=== PATIENT | female | born 1955 | race Caucasian/White ===

== ENCOUNTER 2019-04-06 12:21 | Outpatient (CLI) | payer MEDICARE, OTHER, SELFPAY ==
--- NOTE | ~2019-04-06 | XR_ITS ---
EXAMINATION: XR chest 2V DATE: 04/06/2019 12:41 INDICATION: Cough. TECHNIQUE: Frontal and lateral views of the chest were obtained. COMPARISON: None. FINDINGS: The chest demonstrates clear lungs without pneumonia, pleural effusion, or pneumothorax. Th e heart size is normal. IMPRESSION: 1. No acute cardiopulmonary disease. Reviewed, dictated and finalized at location A. 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
[2019-04-06 13:32] LABS: Blood Urea Nitrogen 22 mg/dL (7-17); Calcium 9.4 mg/dL (8.4-10.2); Carbon Dioxide 30 mmol/L (22-30); Chloride 102 mmol/L (98-107); Estimated Glomerular Filt Rate > 60; Glucose 90 mg/dL (65-105); Potassium 3.9 mmol/L (3.4-5.0); Sodium 142 mmol/L (137-145)
== END 2019-04-06 12:22 | disposition home or self-care (01) ==
PROVIDERS: PCP Internal Medicine; Visit Provider Nurse Practitioner
DX: R05 Cough (principal); I10 Essential (primary) hypertension; I25.10 Atherosclerotic heart disease of native coronary artery without angina pectoris
CPT/HCPCS: 36415; 71046; 80048

== ENCOUNTER 2019-07-11 09:58 | Outpatient (CLI) | payer MEDICARE, OTHER, SELFPAY ==
[2019-07-11 10:34] LABS: Blood Urea Nitrogen 14 mg/dL (7-17); Calcium 9.4 mg/dL (8.4-10.2); Carbon Dioxide 31 mmol/L (22-30); Chloride 105 mmol/L (98-107); Estimated Glomerular Filt Rate > 60; Glucose 97 mg/dL (65-105); Potassium 4.5 mmol/L (3.4-5.0); Sodium 138 mmol/L (137-145)
[2019-07-11 10:43] LABS: NT Pro B Type Natriuretic Pept 93 PG/ML (5-100)
== END 2019-07-11 09:59 | disposition home or self-care (01) ==
PROVIDERS: PCP Internal Medicine
DX: I25.118 Atherosclerotic heart disease of native coronary artery with other forms of angina pectoris (principal); R06.02 Shortness of breath; R60.9 Edema, unspecified
CPT/HCPCS: 36415; 80048; 83880

== ENCOUNTER 2019-07-20 08:12 | Outpatient (CLI) | payer MEDICARE, OTHER, SELFPAY ==
[2019-07-20 08:53] LABS: Blood Urea Nitrogen 18 mg/dL (7-17); Calcium 9.1 mg/dL (8.4-10.2); Carbon Dioxide 28 mmol/L (22-30); Chloride 105 mmol/L (98-107); Estimated Glomerular Filt Rate > 60; Glucose 96 mg/dL (65-105); Potassium 3.6 mmol/L (3.4-5.0); Sodium 139 mmol/L (137-145)
== END 2019-07-20 08:13 | disposition home or self-care (01) ==
PROVIDERS: PCP Internal Medicine
DX: I10 Essential (primary) hypertension (principal)
CPT/HCPCS: 36415; 80048

== ENCOUNTER 2019-11-02 07:26 | Outpatient (CLI) | payer MEDICARE, OTHER, SELFPAY ==
[2019-11-02 07:56] LABS: Anion Gap 6 mmol/L (8-16); Blood Urea Nitrogen 15 mg/dL (7-17); Carbon Dioxide 27 mmol/L (22-30); Chloride 104 mmol/L (98-107); Estimated Glomerular Filt Rate > 60; Glucose 97 mg/dL (65-105); Potassium 3.9 mmol/L (3.4-5.0); Sodium 137 mmol/L (137-145)
== END 2019-11-02 07:27 | disposition home or self-care (01) ==
LOC: ANHLAB 07:29
PROVIDERS: PCP Internal Medicine; Visit Provider Internal Medicine Interventional Cardiology
DX: I10 Essential (primary) hypertension (principal)
CPT/HCPCS: 36415; 80048

== ENCOUNTER 2019-11-19 07:30 | Outpatient (RCR) | payer MEDICARE, OTHER, SELFPAY ==
[2019-08-21 14:29] VITALS: BP 136/76; PULSE 62; RESP 16; TEMP 37.2; O2SAT 97
[2019-08-22 10:21] VITALS: PULSE 62
--- NOTE | 2019-09-10 09:22 | PCCPR ---
Absent-sneezing & has a runny nose. Did not feel comfortable coming and being around other patients with the symptoms she is having.
== END 2019-11-19 23:59 | disposition home or self-care (01) ==
LOC: ANHCPREHAB 07:30
PROVIDERS: PCP Internal Medicine; Visit Provider Internal Medicine Interventional Cardiology
DX: Z95.5 Presence of coronary angioplasty implant and graft (principal)
CPT/HCPCS: 93798

== ENCOUNTER 2019-11-22 07:30 | Outpatient (RCR) | payer MEDICARE, OTHER, SELFPAY ==
[2019-11-20 00:03] VITALS: BP 136/76; PULSE 62; RESP 16; TEMP 37.2; O2SAT 97
== END 2019-11-22 18:41 | disposition home or self-care (01) ==
LOC: ANHCPREHAB 07:30
PROVIDERS: PCP Internal Medicine; Visit Provider Internal Medicine Interventional Cardiology
DX: Z95.5 Presence of coronary angioplasty implant and graft (principal)
CPT/HCPCS: 93798

== ENCOUNTER 2020-02-20 07:07 | Outpatient (CLI) | payer MEDICARE, OTHER, SELFPAY ==
[2020-02-20 08:01] LABS: Hematocrit 43.4 % (37.0-47.0); Hemoglobin 15.4 g/dL (12.0-15.0); Mean Corpuscular HGB Conc 35.5 g/dl (32-36); Mean Corpuscular Hemoglobin 32.4 pg (26-34); Mean Corpuscular Volume 91.2 fl (80-100); Mean Platelet Volume 10.2 fl (7.4-10.4); Platelet Count Result 272 k/mm3 (150-375); Red Blood Count 4.76 M/mm3 (4.2-5.4); Red Cell Distribution Width 13.8 % (11.5-14.5); White Blood Count 7.4 K/mm3 (4.5-10.0)
[2020-02-20 08:22] LABS: Alanine Aminotransferase 33 U/L (4-35); Albumin Level 4.2 g/dL (3.5-5.1); Alkaline Phosphatase 82 U/L (38-126); Anion Gap 5 mmol/L (8-16); Aspartate Amino Transferase 30 U/L (14-36); Bilirubin,Total 0.5 mg/dL (0.2-1.3); Blood Urea Nitrogen 21 mg/dL (7-17); Calcium 9.1 mg/dL (8.4-10.2); Carbon Dioxide 31 mmol/L (22-30); Chloride 104 mmol/L (98-107); Estimated Glomerular Filt Rate > 60; Glucose 101 mg/dL (65-105); Potassium 4.6 mmol/L (3.4-5.0); Sodium 140 mmol/L (137-145)
[2020-02-20 08:27] LABS: Hemoglobin A1C 5.6 % (<5.7)
[2020-02-20 09:15] LABS: Vitamin D 25 Hydroxy 21.8 ng/mL
[2020-02-20 09:26] LABS: Folic Acid 7.9 ng/mL (2.76->20)
== END 2020-02-20 07:08 | disposition home or self-care (01) ==
LOC: ANHLAB 07:21
PROVIDERS: PCP Internal Medicine
DX: E66.9 Obesity, unspecified (principal); E63.9 Nutritional deficiency, unspecified; Z83.3 Family history of diabetes mellitus; Z68.35 Body mass index [BMI] 35.0-35.9, adult; E88.9 Metabolic disorder, unspecified; R79.9 Abnormal finding of blood chemistry, unspecified
CPT/HCPCS: 36415; 80053; 82306; 82607; 82728; 82746; 83036; 84443; 85027

== ENCOUNTER 2020-03-18 06:50 | Outpatient (CLI) | payer MEDICARE, OTHER, SELFPAY ==
[2020-03-18 08:03] LABS: Anion Gap 4 mmol/L (8-16); Blood Urea Nitrogen 15 mg/dL (7-17); Calcium 9.4 mg/dL (8.4-10.2); Carbon Dioxide 32 mmol/L (22-30); Chloride 105 mmol/L (98-107); Estimated Glomerular Filt Rate > 60; Glucose 98 mg/dL (65-105); Potassium 4.1 mmol/L (3.4-5.0); Sodium 141 mmol/L (137-145)
[2020-03-21 05:08] LABS: Insulin Level Total 16.4 uIU/mL (<=19.6)
== END 2020-03-18 06:51 | disposition home or self-care (01) ==
PROVIDERS: PCP Internal Medicine
DX: E88.9 Metabolic disorder, unspecified (principal); E63.9 Nutritional deficiency, unspecified; R73.9 Hyperglycemia, unspecified; Z83.3 Family history of diabetes mellitus
CPT/HCPCS: 36415; 80048; 83525

== ENCOUNTER 2020-07-10 15:48 | Outpatient (CLI) | payer MEDICARE, OTHER, SELFPAY ==
--- NOTE | ~2020-07-10 | MM_ITS ---
EXAMINATION: MM screening disha BI w matthew HISTORY: Screening TECHNIQUE: Craniocaudal and mediolateral oblique 3-D tomosynthesis images were obtained and synthetic 2-D images were generated. CAD analysis was submitted and interpreted. COMPARISON: Comparison to multiple prior studies sequentially, with oldest reviewed study dated 08/23. BREAST PARENCHYMAL COMPOSITION: There are scattered areas of fibroglandular density. FINDINGS: There is no evidence of suspicious mass, calcification, or architectural distortion to sugg est malignancy in either breast. There has been no suspicious interval change. IMPRESSION: 1. No mammographic evidence of malignancy. 2. Recommend routine screening mammography in one year. BI-RADS Category 1: Negative Reviewed, dictated and finalized at location A.
== END 2020-07-10 15:49 | disposition home or self-care (01) ==
LOC: ANHIMG 15:50
PROVIDERS: PCP Internal Medicine; Visit Provider Obstetrics & Gynecology
DX: Z12.31 Encounter for screening mammogram for malignant neoplasm of breast (principal)
CPT/HCPCS: 77063; 77067

== ENCOUNTER 2020-07-25 07:08 | Outpatient (CLI) | payer MEDICARE, OTHER, SELFPAY ==
[2020-07-25 08:25] LABS: Basophils Absolute Auto 0.1 K/mm3 (0.0-0.1); Basophils Percent Auto 0.7 % (0.2-1.2); Eosinophils Absolute Auto 0.1 K/mm3 (0-0.3); Eosinophils Percent Auto 1.7 % (0-4.4); Hematocrit 43.8 % (37.0-47.0); Hemoglobin 14.1 g/dL (12.0-15.0); Immature Granulocyte Absolute 0.03 K/mm3 (0.00-0.031); Immature Granulocyte Percent A 0.4 % (0-0.5); Lymphocytes Absolute Auto 1.46 K/mm3 (0.9-3.2); Lymphocytes Percent Auto 21.2 % (18.3-44.2); Mean Corpuscular HGB Conc 32.2 g/dl (32-36); Mean Corpuscular Hemoglobin 29.3 pg (26-34); Mean Corpuscular Volume 91.1 fl (80-100); Mean Platelet Volume 10.4 fl (7.4-10.4); Monocytes Absolute Auto 0.6 K/mm3 (0.1-0.6); Monocytes Percent Auto 8.9 % (2.6-8.5); Neutrophils Absolute Auto 4.6 K/mm3 (1.3-6.7); Neutrophils Percent Auto 67.1 % (45.5-73.1); Platelet Count Result 277 k/mm3 (150-375); Red Blood Count 4.81 M/mm3 (4.2-5.4); White Blood Count 6.9 K/mm3 (4.5-10.0)
[2020-07-25 08:33] LABS: Alanine Aminotransferase 21 U/L (4-35); Albumin Level 4.3 g/dL (3.5-5.1); Alkaline Phosphatase 79 U/L (38-126); Anion Gap 12 mmol/L (8-16); Aspartate Amino Transferase 27 U/L (14-36); Bilirubin,Total 0.5 mg/dL (0.2-1.3); Blood Urea Nitrogen 18 mg/dL (7-17); Calcium 9.4 mg/dL (8.4-10.2); Carbon Dioxide 23 mmol/L (22-30); Chloride 109 mmol/L (98-107); Cholesterol 144 mg/dL (0-200); Estimated Glomerular Filt Rate > 60; Glucose 91 mg/dL (65-105); HDL Direct 58 mg/dL; Potassium 3.8 mmol/L (3.4-5.0); Sodium 144 mmol/L (137-145); Triglycerides 66 mg/dL (<150)
[2020-07-25 08:43] LABS: LDL Cholesterol Direct 57 mg/dL
[2020-07-25 09:48] LABS: Vitamin D 25 Hydroxy 43.2 ng/mL
== END 2020-07-25 07:09 | disposition home or self-care (01) ==
PROVIDERS: PCP Internal Medicine; Visit Provider Clinical Nurse Specialist
DX: E55.9 Vitamin D deficiency, unspecified (principal); E78.5 Hyperlipidemia, unspecified; I10 Essential (primary) hypertension
CPT/HCPCS: 36415; 80053; 80061; 82306; 85025

== ENCOUNTER 2020-10-23 14:08 | Outpatient (CLI) | payer MEDICARE, OTHER, SELFPAY ==
--- NOTE | ~2020-10-23 | US_ITS ---
EXAMINATION: US pelvic complete w TV DATE: 10/23/2020 14:51 INDICATION: Pelvic pain Comparison:No prior studies for comparison. TECHNIQUE: Multiple transabdominal and endovaginal sonographic images of the pelvis performed. FINDINGS: The uterus measures 6.9 x 3.5 x 5.6 cm. The endometrial complex measures 2 mm. The right ovary measures 1.8 x 1.6 x 1.6 cm and the left ovary measures 1.3 x 1.2 x 1.3 cm. There ar e small follicles in each ovary. Normal doppler signal in both ovaries. There is no free fluid in the pelvis. There are no abnormal masses seen on either side. IMPRESSION: 1. Unremarkable pelvic ultrasound. Reviewed, dictated and finalized at location A.
== END 2020-10-23 14:09 | disposition home or self-care (01) ==
LOC: ANHIMG 14:12
PROVIDERS: PCP Internal Medicine; Visit Provider Obstetrics & Gynecology
DX: R10.2 Pelvic and perineal pain (principal)
CPT/HCPCS: 76830; 76856

== ENCOUNTER 2021-11-28 09:56 | Emergency (ER) | payer MEDICARE, OTHER, SELFPAY ==
[2021-11-28] VITALS (8 sets, daily range): BP systolic 113–165; BP diastolic 69–84; PULSE 60–87; RESP 18; TEMP 36.5; O2SAT 96–99
--- NOTE | ~2021-11-28 | CT_ITS ---
EXAMINATION: CT abdomen pelvis wo con DATE: 11/28/2021 12:44 INDICATION: Hematuria. TECHNIQUE: Computed tomography (CT) of the abdomen and pelvis was performed without intravenous contr ast. Automated exposure control and iterative reconstruction technique were employed. The dose-length product was 887.90 mGy-cm. COMPARISON: CT abdomen 09/04/2008 FINDINGS: The visualized portions of the lung bases demonstrate mild atelectasis. No pleural effusion . The heart size is normal. There are coronary artery calcifications. No pericardial effusion. The li jed is normal. The gallbladder is distended, likely secondary to fasting. The spleen, pancreas, and a drenal glands are normal. Calcifications in right kidney are likely vascular. There are 2 mm and 3 mm stones in left kidney. There is mild left hydronephrosis and hydroureter. There is a 3 mm stone at t he left ureterovesicular junction. There is diverticulosis of the colon without evidence of diverticu litis. There are no dilated loops of bowel. The appendix is not visualized. 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 There is an umbil ical hernia containing fat. There are no pathologically enlarged lymph nodes. There is no free intrap eritoneal fluid. There is moderate lumbar spondylosis. IMPRESSION: 1. 3 mm stone at left ureterovesicular junction with mild left hydronephrosis and hydroureter. 2. Small nonobstructing left kidney stones. Reviewed, dictated and finalized at location A. IMPRESSION: 1. 3 mm stone at left ureterovesicular junction with mild left hydronephrosis a nd hydroureter. 2. Small nonobstructing left kidney stones.
--- NOTE | 2021-11-28 10:30 | ED.ABDPAIN ---
HPI - Abdominal Pain General Chief Complaint: Abdominal Pain Stated Complaint: Left flank pain Time Seen by Provider: 11/28/21 10:12 History of Present Illness HPI narrative: 66-year-old female with history of hypertension, coronary artery disease presented emerged department for evaluation of cute onset of left flank pain. Patient states that approximately 530 she had onset of left flank pain and the pain has not improved. Patient states the pain does radiate around to her left lower quadrant. Patient denies any worsening of the pain with palpation or movement. Patient states the pain is constant. Patient has no prior history of kidney stones but does report a family history of kidney stones. Patient has a prior surgical history of C-sections x3. Related Data Home Medications Medication Instructions Recorded Confirmed aspirin 81 mg tablet,delayed 81 mg PO DAILY 01/09/19 10/10/20 release nitroglycerin 0.4 mg sublingual 10 mg sublingual PRN PRN Chest Pain 01/09/19 10/10/20 tablet atorvastatin 80 mg tablet 80 mg PO DAILY 08/22/19 10/10/20 furosemide 20 mg tablet 20 mg PO DAILY 08/22/19 10/10/20 irbesartan 300 mg tablet 300 mg PO DAILY 08/22/19 10/10/20 isosorbide mononitrate 30 mg 30 mg PO DAILY 08/22/19 10/10/20 tablet,extended release 24 hr pilocarpine HCl 1 % eye drops 2 drp ophthalmic (eye) TID 08/22/19 10/10/20 topiramate 50 mg capsule 50 mg PO DAILY 07/31/20 10/10/20 sprinkle,extended release 24 hr Allergies Allergy/AdvReac Type Severity Reaction Status Date / Time Iodinated Contrast Media Allergy Mild hives Verified 11/28/21 10:16 Review of Systems Review of Systems: CONSTITUTIONAL: Denies fever, chills, or sweats. EYES: Denies visual changes, redness, or discharge. ENT: Denies rhinorrhea, congestion, sore throat, or otalgia. CARDIOVASCULAR: Denies chest pain, palpitations, or edema. RESPIRATORY: Denies cough or dyspnea. GASTROINTESTINAL: See HPI GENITOURINARY: Denies dysuria or hematuria. SKIN: Denies rash or itching. MUSCULOSKELETAL: Denies back pain, joint pain, or myalgia. NEUROLOGIC: Denies headache, numbness, or weakness. [facility] Past Medical History Medical History Angina pectoris syndrome work up revealed; non heart related CAD (coronary artery disease) Dyslipidemia Hyperlipidemia Hypertension Surgical History Surgical History H/O section x3 H/O heart artery stent 04/12/2019 Family History Family History Father Hypertension Family history of diabetes mellitus in first degree relative Family history of coronary artery disease, Onset Age: 45 Patient's father is Mother Hypertension Family history of kidney disease, Onset Age: 36 Family history of coronary artery disease, Onset Age: 71 Patient's mother is Other Family history of type 1 diabetes mellitus Social History Social History Smoking status: Never smoker Second hand tobacco smoke exposure: No Alcohol intake: current Alcohol use details: rarely Gender identity (if verbalized by the patient): Female Exam Narrative: APPEARANCE: Well appearing, no pain, no distress, well-nourished. HEAD: normocephalic, atraumatic. EYES: PERRLA/EOMI, conjunctivae clear. NOSE: Normal no drainage NECK: Supple. No adenopathy, no masses. RESPIRATORY: Airway patent, respirations nonlabored. Clear to auscultation bilaterally, no rales, rhonchi, wheezing. CARDIOVASCULAR: Regular rate and rhythm without murmurs rubs or gallops. ABDOMINAL: Soft, nontender, nondistended, normal bowel sounds. Left CVA pain and left lower quad abdominal pain is not worsened with palpation. MUSCULOSKELETAL: Moves all extremities. Strength/ROM intact, No edema, No calf tenderness. NEURO: A
[2021-11-28] MEDS: SODIUM CHLORIDE 0.9% IV 1,000 ML 999 ML IV CONT (10:42)
[2021-11-28] MEDS: ONDANSETRON INJ 4 MG/2 ML VIAL IV PUSH (10:43)
[2021-11-28] MEDS: HYDROmorphone HCL INJ (*CRX) 1 MG/ML SYR IV PUSH (10:43)
[2021-11-28 11:09] LABS: Basophils Absolute Auto 0.1 K/mm3 (0.0-0.1); Basophils Percent Auto 0.7 % (0.2-1.2); Eosinophils Percent Auto 0.4 % (0-4.4); Hematocrit 44.5 % (37.0-47.0); Hemoglobin 14.7 g/dL (12.0-15.0); Immature Granulocyte Absolute 0.09 K/mm3 (0.00-0.031); Immature Granulocyte Percent A 0.9 % (0-0.5); Lymphocytes Absolute Auto 0.78 K/mm3 (0.9-3.2); Lymphocytes Percent Auto 7.7 % (18.3-44.2); Mean Corpuscular Hemoglobin 30.8 pg (26-34); Mean Corpuscular Volume 93.3 fl (80-100); Mean Platelet Volume 10.5 fl (7.4-10.4); Monocytes Absolute Auto 0.6 K/mm3 (0.1-0.6); Monocytes Percent Auto 6.1 % (2.6-8.5); Neutrophils Absolute Auto 8.6 K/mm3 (1.3-6.7); Neutrophils Percent Auto 84.2 % (45.5-73.1); Platelet Count Result 232 k/mm3 (150-375); Red Blood Count 4.77 M/mm3 (4.2-5.4); Red Cell Distribution Width 13.5 % (11.5-14.5); White Blood Count 10.2 K/mm3 (4.5-10.0)
[2021-11-28 11:20] LABS: Lactic Acid Reflex 1.8 mmol/L (0.7-2.0)
[2021-11-28 11:21] LABS: Alanine Aminotransferase 34 U/L (6-35); Albumin Level 4.5 g/dL (3.5-5.1); Alkaline Phosphatase 90 U/L (38-126); Anion Gap 9 mmol/L (8-16); Aspartate Amino Transferase 32 U/L (14-36); Bilirubin,Total 0.4 mg/dL (0.2-1.3); Blood Urea Nitrogen 17 mg/dL (7-17); Calcium 9.1 mg/dL (8.4-10.2); Carbon Dioxide 26 mmol/L (22-30); Chloride 105 mmol/L (98-107); Estimated CRCL calculation 46 ml/min; Estimated Glomerular Filt Rate 49; Glucose 147 mg/dL (65-110); Potassium 3.9 mmol/L (3.4-5.0); Sodium 140 mmol/L (137-145)
[2021-11-28 11:31] LABS: Add Urine Microscopic? YES; Appearance Urine Cloudy (Clear); Bacteria Urine Trace /hpf; Bilirubin Urine Negative (Negative); Blood Urine 2+ (Negative); Color Urine Straw (Yellow); Glucose Urine UA Negative (Negative); Ketones Urine Negative (Negative); Leukocyte Esterase Ur Negative LEU/UL (Negative); Mucus Urine Rare /lpf; Nitrate Urine Negative (Negative); Protein Urine Negative (Negative); RBC Urine >75 /hpf (0-2); Specific Grav Ur 1.006 (1.001-1.035); Urobilinogen Urine Negative mg/dL (<2.0); WBC Urine 0-3 /hpf
[2021-11-28] MEDS: KETOROLAC 15 MG/ML VIAL (*BKC) IV PUSH (13:47)
[2021-11-28] MEDS: TAMSULOSIN HCL 0.4 MG CAPSULE PO (13:48)
== END 2021-11-28 14:00 | disposition home or self-care (01) ==
PROVIDERS: Emergency Provider Emergency Medicine; PCP Internal Medicine
DX: N13.2 Hydronephrosis with renal and ureteral calculous obstruction (principal); I10 Essential (primary) hypertension; I25.10 Atherosclerotic heart disease of native coronary artery without angina pectoris; E78.5 Hyperlipidemia, unspecified; Z95.5 Presence of coronary angioplasty implant and graft; Z79.82 Long term (current) use of aspirin
CPT/HCPCS: 36415; 74176; 80053; 81001; 83605; 85025; 96361; 96374; 96375; 99284; A9270; J1170; J1885; J2405; J7030

== ENCOUNTER 2022-03-17 07:59 | Outpatient (CLI) | payer MEDICARE, SELFPAY ==
[2022-03-17 12:25] LABS: Hemoglobin A1C 5.2 % (<5.7)
[2022-03-17 13:09] LABS: Alanine Aminotransferase 59 U/L (6-35); Albumin Level 4.3 g/dL (3.5-5.1); Alkaline Phosphatase 81 U/L (38-126); Anion Gap 5 mmol/L (8-16); Aspartate Amino Transferase 44 U/L (14-36); Bilirubin,Total 0.6 mg/dL (0.2-1.3); Blood Urea Nitrogen 21 mg/dL (7-17); Calcium 9.1 mg/dL (8.4-10.2); Carbon Dioxide 28 mmol/L (22-30); Chloride 106 mmol/L (98-107); Estimated Glomerular Filt Rate > 60; Glucose 105 mg/dL (65-110); Sodium 139 mmol/L (137-145)
== END 2022-03-17 08:00 | disposition home or self-care (01) ==
PROVIDERS: PCP Internal Medicine
DX: E66.9 Obesity, unspecified (principal); R79.9 Abnormal finding of blood chemistry, unspecified
CPT/HCPCS: 36415; 80053; 83036

== ENCOUNTER 2022-05-14 12:42 | Outpatient (CLI) | payer MEDICARE, OTHER, SELFPAY ==
--- NOTE | ~2022-05-14 | MM_ITS ---
EXAMINATION: MM diagnostic disha BI w matthew HISTORY: Breast pain TECHNIQUE: Additional 3-D tomosynthesis images of the breasts were performed and synthetic 2-D images were generated. CAD analysis was submitted and interpreted. COMPARISON: Comparison to multiple prior studies sequentially, with oldest reviewed study dated 08/23. BREAST PARENCHYMAL COMPOSITION: Breast composed of scattered areas of fibroglandular density FINDINGS: There are no suspicious masses, clustered calcifications or architectural distortion in eit her breast to suggest malignancy. IMPRESSION: 1. No evidence for malignancy in either breast. 2. Routine yearly screening mammogram and regular clinical breast examination are recommended. BI-RADS Category 1: Negative Reviewed, dictated and finalized at location A. IMPRESSION: 1. No evidence for malignancy in either breast. 2. Routine yearly screening mammogram and regular clinical breast examination a re recommended. BI-RADS Category 1: Negative
== END 2022-05-14 12:43 | disposition home or self-care (01) ==
LOC: ANHIMG 12:45
PROVIDERS: PCP Internal Medicine; Visit Provider Obstetrics & Gynecology
DX: N64.4 Mastodynia (principal)
CPT/HCPCS: 77062; 77066; G0279

== ENCOUNTER 2022-06-03 16:34 | Outpatient (CLI) | payer MEDICARE, SELFPAY ==
[2022-06-03 18:06] LABS: Anion Gap 4 mmol/L (8-16); Blood Urea Nitrogen 18 mg/dL (7-17); Calcium 8.7 mg/dL (8.4-10.2); Carbon Dioxide 27 mmol/L (22-30); Chloride 110 mmol/L (98-107); Estimated Glomerular Filt Rate > 60; Glucose 96 mg/dL (65-110); Potassium 3.9 mmol/L (3.4-5.0); Sodium 141 mmol/L (137-145)
[2022-06-03 18:18] LABS: Basophils Absolute Auto 0.1 K/mm3 (0.0-0.1); Eosinophils Absolute Auto 0.2 K/mm3 (0-0.3); Eosinophils Percent Auto 2.1 % (0-4.4); Hematocrit 43.8 % (37.0-47.0); Hemoglobin 14.3 g/dL (12.0-15.0); Immature Granulocyte Absolute 0.02 K/mm3 (0.00-0.031); Immature Granulocyte Percent A 0.3 % (0-0.5); Lymphocytes Absolute Auto 1.94 K/mm3 (0.9-3.2); Lymphocytes Percent Auto 25.2 % (18.3-44.2); Mean Corpuscular HGB Conc 32.6 g/dl (32-36); Mean Corpuscular Hemoglobin 31.2 pg (26-34); Mean Corpuscular Volume 95.6 fl (80-100); Mean Platelet Volume 11.1 fl (7.4-10.4); Monocytes Absolute Auto 0.8 K/mm3 (0.1-0.6); Monocytes Percent Auto 10.4 % (2.6-8.5); Neutrophils Absolute Auto 4.7 K/mm3 (1.3-6.7); Platelet Count Result 233 k/mm3 (150-375); Red Blood Count 4.58 M/mm3 (4.2-5.4); Red Cell Distribution Width 13.5 % (11.5-14.5); White Blood Count 7.7 K/mm3 (4.5-10.0)
== END 2022-06-03 16:35 | disposition home or self-care (01) ==
PROVIDERS: PCP Internal Medicine; Visit Provider Internal Medicine Interventional Cardiology
DX: I25.10 Atherosclerotic heart disease of native coronary artery without angina pectoris (principal)
CPT/HCPCS: 36415; 80048; 85025

== ENCOUNTER 2022-06-18 07:46 | Outpatient (CLI) | payer MEDICARE, SELFPAY ==
[2022-06-18 08:29] LABS: Hemoglobin A1C 5.4 % (<5.7)
[2022-06-18 08:36] LABS: Alanine Aminotransferase 33 U/L (6-35); Albumin Level 4.2 g/dL (3.5-5.1); Alkaline Phosphatase 96 U/L (38-126); Anion Gap 5 mmol/L (8-16); Aspartate Amino Transferase 30 U/L (14-36); Bilirubin,Total 0.5 mg/dL (0.2-1.3); Blood Urea Nitrogen 17 mg/dL (7-17); Calcium 9.1 mg/dL (8.4-10.2); Carbon Dioxide 28 mmol/L (22-30); Chloride 110 mmol/L (98-107); Estimated Glomerular Filt Rate > 60; Glucose 100 mg/dL (65-110); Potassium 3.9 mmol/L (3.4-5.0); Sodium 143 mmol/L (137-145)
[2022-06-24 16:04] LABS: Insulin Level Total 14.2 uIU/mL (<=19.6)
== END 2022-06-18 07:47 | disposition home or self-care (01) ==
PROVIDERS: PCP Internal Medicine
DX: E88.9 Metabolic disorder, unspecified (principal); E63.9 Nutritional deficiency, unspecified; Z68.32 Body mass index [BMI] 32.0-32.9, adult; R79.9 Abnormal finding of blood chemistry, unspecified; E66.9 Obesity, unspecified
CPT/HCPCS: 36415; 80053; 83036; 83525

== ENCOUNTER 2022-10-07 07:40 | Outpatient (CLI) | payer MEDICARE, SELFPAY ==
[2022-10-07 08:08] LABS: Basophils Absolute Auto 0.1 K/mm3 (0.0-0.1); Eosinophils Absolute Auto 0.1 K/mm3 (0-0.3); Eosinophils Percent Auto 1.4 % (0-4.4); Hematocrit 45.3 % (37.0-47.0); Hemoglobin 14.5 g/dL (12.0-15.0); Immature Granulocyte Absolute 0.02 K/mm3 (0.00-0.031); Immature Granulocyte Percent A 0.3 % (0-0.5); Lymphocytes Absolute Auto 1.27 K/mm3 (0.9-3.2); Lymphocytes Percent Auto 18.2 % (18.3-44.2); Mean Corpuscular Hemoglobin 29.3 pg (26-34); Mean Corpuscular Volume 91.5 fl (80-100); Mean Platelet Volume 10.2 fl (7.4-10.4); Monocytes Absolute Auto 0.7 K/mm3 (0.1-0.6); Monocytes Percent Auto 9.6 % (2.6-8.5); Neutrophils Absolute Auto 4.9 K/mm3 (1.3-6.7); Neutrophils Percent Auto 69.5 % (45.5-73.1); Platelet Count Result 245 k/mm3 (150-375); Red Blood Count 4.95 M/mm3 (4.2-5.4); Red Cell Distribution Width 13.8 % (11.5-14.5)
[2022-10-07 08:21] LABS: Anion Gap 5 mmol/L (8-16); Blood Urea Nitrogen 19 mg/dL (7-17); Calcium 9.4 mg/dL (8.4-10.2); Carbon Dioxide 26 mmol/L (22-30); Chloride 104 mmol/L (98-107); Estimated Glomerular Filt Rate > 60; Glucose 115 mg/dL (65-110); Potassium 3.5 mmol/L (3.4-5.0); Sodium 135 mmol/L (137-145)
== END 2022-10-07 07:41 | disposition home or self-care (01) ==
LOC: ANHLAB 07:43
PROVIDERS: PCP Internal Medicine; Visit Provider Internal Medicine Interventional Cardiology
DX: I25.10 Atherosclerotic heart disease of native coronary artery without angina pectoris (principal)
CPT/HCPCS: 36415; 80048; 85025

== ENCOUNTER 2022-11-03 07:15 | Outpatient (RCR) | payer MEDICARE, OTHER, SELFPAY | END 2022-11-03 08:54 | disposition home or self-care (01) | LOC: ANHCPREHAB 07:15 | PROVIDERS: PCP Internal Medicine; Visit Provider Internal Medicine Interventional Cardiology | DX: Z95.5 Presence of coronary angioplasty implant and graft (principal) | CPT/HCPCS: 93798 ==

== ENCOUNTER 2024-04-03 08:27 | Outpatient (CLI) | payer MEDICARE, SELFPAY ==
--- NOTE | ~2024-04-03 | MM_ITS ---
EXAMINATION: MM screening disha BI w matthew HISTORY: Screening TECHNIQUE: Craniocaudal and mediolateral oblique 3-D tomosynthesis images were obtained and synthetic 2-D images were generated. CAD analysis was submitted and interpreted. COMPARISON: Comparison to multiple prior studies sequentially, with oldest reviewed study dated 08/23. BREAST PARENCHYMAL COMPOSITION: Not Dense: The breasts are almost entirely fatty. FINDINGS: There are benign-appearing left breast calcifications. There is no evidence of suspicious m ass, calcification, or architectural distortion to suggest malignancy in either breast. There has bee n no suspicious interval change. IMPRESSION: 1. No mammographic evidence of malignancy. 2. Recommend routine screening mammography in one year. BI-RADS Category 1: Negative Reviewed, dictated and finalized at location [facility]
--- OUTSIDE RECORDS SUMMARY | 2024-04-03 08:33 | XMS_ITS | Encounter Summary ---
Author Organization [facility] Address [address] [place] [address] Phone Care Team Providers Care Community Service Coordinator Name Role Phone Taz Polk DO Primary Care Provider [phone] Encounter Details Date Type Department Care Team (Latest Contact Info) Description 03/18/2020 Orders Only DONIS WGT Scanning, Provider Social History Tobacco Use Types Packs/Day Years Used Date Smoking Tobacco: Never Smokeless Tobacco: Never Alcohol Use Standard Drinks/Week Comments Yes 0 (1 standard drink = 0.6 oz pur e alcohol) occasional AUDIT-C Answer Date Recorded Frequency of Alcohol Consumption Monthly or less 11/29/2018 Average Number of Drinks Not on file 019 Frequency of Binge Drinking Not on file 11/14 Comments No Sex and Gender Information Value Date Recorded Sex Assigned at Not on file Legal Sex Female 1:35 PM CDT Gender Identity Female 08/29/2020 7:30 AM CDT Sexual Orientation Not on file documented as of this encounter Plan of Treatment Not on file documented as of this encounter Procedures Procedure Name Priority Date/Time Associated Diagnosis Comments SCAN - LABS 03/18/2020 documented in this encounter Results * SCAN - LABS (03/18/2020) us Provider Scanning Final Result documented in this encounter Visit Diagnoses Not on filedocumented in this encounter Additional Health Concerns Infection Onset Date Last Indicated Resolved Time COVID: Suspected 06/03/2021 06/03/2021 06/03/2021 11:10 AM CDT COVID19 06/03/2021 06/03/2021 06/13/2021 3:05 AM CDT COVID: Recovered Comment:Added based on recent COVID infection. 06/13/2021 08/14/2021 10/11/2021 3:05 AM C DT documented as of this encounter Care Teams Community Service Coordinator Relationship Specialty Start Date End Date Taz Polk DO PCP - General Internal Medicine 11/18/17 documented as of this encounter
--- OUTSIDE RECORDS SUMMARY | 2024-04-03 08:33 | XMS_ITS | Encounter Summary ---
Author Organization [facility] Address [address] [facility] [place] [address] Care Team Providers Care Securities Settlement Processor Name Role Phone Taz Polk DO Primary Care Provider [phone] Encounter Details Date Type Department Care Team (Late st Contact Info) Description 09/07/2022 Lab Requisition [facility] - DermPath Lab [address] [facility] [place] [address] Melania Whitehead MD [address] [facility] [address] DEPT [place] [address] Social History Tobacco Use Types Packs/Day Years Used Date Smoking Tobacco: Never Smokeless Tobacco: Never Sex and Gender Information Value Date Recorded Sex Assigned at Not on file Gender Identity Not on file Sexual Orientation Not on file documented as of this encounter Plan of Treatment Not on file documented as of this encounter Procedures Procedure Name Priority Date/Time Associated Diagnosis Comments DERMATOPATHOLOGY Routine 09/07/2022 10:2 7 AM CDT documented in this encounter Results * DERMATOPATHOLOGY (09/07/2022 10:27 AM CDT) Case Report Dermatopathology Report Case: [id number] Authorizing Provider: Melania Whitehead MD Collected: 09/07/2022 10:27 AM Ordering Location: [facility] DermPath Lab Received: 09/07/2022 04:17 PM Pathologist: Nicholas Hwang MD Specimen: Skin, left thigh 4:42 PM CDT DERMATOPATHOLOGY LABORATORY Final Diagnosis Specimen A. SKIN, left thigh: LICHEN PLANUS-LIKE KERATOSIS (BENIGN LICHENOID KERATOSIS) (L82.1) 3 4:42 PM CDT DERMATOPATHOLOGY LABORATORY Clinical History R/O BCC vs. SCC vs. LPLK 3 4:42 PM CDT DERMATOPATHOLOGY LABORATORY Gross Description Specimen A: Received is one formalin filled container labeled with the patient's name and designated left thigh. The specimen consists of a shave biopsy measuring 7x8x1 mm. Jar 0. 3 4:42 PM CDT DERMATOPATHOLOGY LABORATORY Microscopic Description Specimen A. SKIN, left thigh: The epidermis is mildly acanthotic. There is a lichenoid infiltrate with vacuolar changes of basilar keratinocytes and scattered necrotic keratinocytes. 3 4:42 PM CDT DERMATOPATHOLOGY LABORATORY Disclaimer An external and internal positive and negative controls are appropriate for the histochemical, immunohistochemical and immunofluorescence stain(s) in this case (if any), except where stated explicitly. The performance characteristics of the stain(s) cited in this report were developed and its performance characteristic determined by the Dermatopathology Laboratory at [facility], directed by Dr. Brennen Hwang. These tests need not be, and therefore are not, approved by the [place] Food and Drug Administration. The tests are used for clinical purposes. Billing Codes Specimen Charges Stain Charges 23318 1 3 4:42 PM CDT DERMATOPATHOLOGY LABORATORY Embedded Images 3 4:42 PM CDT DERMATOPATHOLOGY LABORATORY Pathology/Cytolo gy TISSUE SPECIMEN FROM SKIN / Unknown 09/07/2022 10:27 AM CDT 09/07/2022 4:17 PM CDT Melania Whitehead MD LAB - PATHOLOGY/CYTO LOGY ORDERABLES DERMATOPATHOLOGY LABORATORY [facility] - Department of Dermatology [address], [address] [phone] documented in this encounter Visit Diagnoses Not on filedocumented in this encounter Care Teams Securities Settlement Processor Relationship Specialty Start Date End Date Taz Polk DO PCP - General 01/18/18 documented as of this encounter
--- OUTSIDE RECORDS SUMMARY | 2024-04-03 08:33 | XMS_ITS | Continuity of Care Document ---
Author Organization [facility] Address [address] [place] [address] [address] [facility] [address] [place] [address] Phone Care Team Providers Care Floor Covering Printer Assistant Name Role Phone Jennifer Le Unavailable Unavailable Advance Directives Directive Yes / No Effective Date File Name No Information Encounters Encounter Description Practice Location Reason(s) For Visit Diagnoses Date Provider Providers Copied on Encounter [facility], [address] [place] [address] [address], [place], [place], [id number], [place] tel:[phone] [facility] No Information [address] , [address], [place], [address], [place]. tel:[phone] Family History Family Member Type Diagnosis Age At Onset No Information Payers Payer name Insurance type Covered republican ID Authoriza tion(s) No Information Social History Type Description Quantity Date Captured Comments Sex Female Smoking Status No Information Chief Complaint And Reason For Visit No Information Reason For Referral Reason For Referral No Information History Of Present Illness Encounter Date Complaint History Of Prese nt Illness No Information Functional Status Date Functional Assessmen t No Information Instructions Date Instruction Additional Infor mation No Information Assessments Type Assessment Date No Information Patient Care Teams Name Effective Dates (start - stop) Status Members No Information
--- OUTSIDE RECORDS SUMMARY | 2024-04-03 08:33 | XMS_ITS | Referral Summary ---
Author Organization [facility] Address [address] [facility] [place] [address] Care Team Providers Care Catalogue Maker Name Role Phone Taz Polk DO Primary Care Provider [phone] Source Comments [facility],non-owned Affiliates and Associated Physician Practices is amultiple site organization consisting of ambulatory clinics and hospital sitesin [place], [place], [place] and [place]. This disclosure is being madepursuant to the Care Everywhere program and may not contain all information available regarding this patient. Last updated 17.[facility] [employer] Allergies No known active allergies Medications * Be aware that medications may not be up to date on this document. Alwaysverify current medications with the patient. Medication Sig Dispensed Refills Start Date End Date Status lisinopril-hydroCHLOROthiaz windy (PRINZIDE; ZESTORETIC) 20-12.5 MG tablet TK 1 T PO QD 3 12/21/2017 Activ e Immunizations Name Administration Dates Next Due INFLUENZA VACCINE, HIGH-DOSE , QUADR. (FLUZONE HIGH-DOSE QUADRIVALENT; 65Y+), 0.7 ML (HD-IIV4) 11/16/2019 iNFLUENZA VACCINE, RECOM-HASSAN, QUADR. (FLUBLOCK QUADRIVALENT; 18Y+) (RIV4) 12/04/2017 Social History Tobacco Use Types Packs/Day Years Used Date Smoking Tobacco: Never Smokeless Tobacco: Never Sex and Gender Information Value Date Recorded Sex Assigned at Not on file Gender Identity Not on file Sexual Orientation Not on file Last Filed Vital Signs Vital Sign Reading Time Taken Comments Blood Pressure 132/82 01/18/2018 2:42 PM OPTHALMIC TECH Pulse 92 01/18/2018 2:42 PM OPTHALMIC TECH Temperature 36.9 C (98.4 F) 01/18/2018 2:42 PM OPTHALMIC TECH Respiratory Rate - - Oxygen Saturation 96% 01/18/2018 2:42 PM OPTHALMIC TECH Inhaled Oxygen Concentration - - Weight 83.9 kg (185 lb) 01/18/2018 2:42 PM OPTHALMIC TECH Height 166.4 cm (5' 5.5 ) 01/18/2018 2:42 PM OPTHALMIC TECH Body Mass Index 30.32 01/18/2018 2:42 PM OPTHALMIC TECH Plan of Treatment Not on file Care Teams Catalogue Maker Relationship Specialty Start Date End Date Taz Polk DO PCP - General 01/18/18
--- OUTSIDE RECORDS SUMMARY | 2024-04-03 08:33 | XMS_ITS ---
Author Organization [facility] Address [address] [place] [address] Care Team Providers Care Sales Training Manager Name Role Phone Taz Polk Primary Care Provider Ishaan Johnson Unavailable [phone] REASON FOR VISIT [facility], on tirzepatide, appetite suppression is lasting 4-5 days, no side effects, increased exercise this past week, no new concerns, *ask about difference in medication next appt, Desired weight loss: 45 lbs, +0.2 lbs since last visit, -34.4 lbs total, No history MTC or MEN2 orpancreatitis, Concerned about future DM and OA Encounters Encounter Location Date Provider Diagnosis [facility] [place] ([address]) [address] [place] [phone] 04/03/2024 Ishaan Gambino Morbid (severe) obesity due to excess calories E66.01 ; Chronic fatigue, unspecified R53.82 ; Other fatigue R53.83 and Other malaise R53.81 Assessments Encounter Date Diagnosis (ICD Code) Assessment Notes Treatment Notes Treatment Clinical Notes Section Notes 04/03/2024 Morbid (severe) obesity due to excess calories (ICD-10 - E66.01) 04/03/2024 Chronic fatigue, unspecified (ICD-10 - R53.82) 04/03/2024 Other fatigue (ICD-10 - R53.83) 04/03/2024 Other malaise (ICD-10 - R53.81) Plan Of Treatment Next Appt Details Follow Up: 1 Week, Reason: G LP-1 Agonist Administration Provider Name:Ishaan Gambino , 04/03/2024 10:30:00 AM, [address], [facility] [address], [place], [address], Provider Name:Ishaan KatlinRhonda Gambino , 04/10/2024 09:00:00 AM, [address], [facility] [address], [place], [address], Procedure Notes * Category Sub-Category Detail Notes [facility] Management tirzepatide Indication: weig ht loss Concentration: 10 mg/mL Volume Administered: 0.45 mL Dose Administered: 4.5 mg Route: SQ Location: [facility] Frequency: weekly Lot Number/Expiration: Medication Source: Nutraceutical Comp ounding Adverse Reaction: None Progress Notes * Tyrese TRANanceDOB:[birth year] (69 yo F)Acc No.[id number]:04/03/2024 Weight Loss Patient: Denice HUFFMAN Provider: Magi Gambino MD :1955 A ge:69 Y S ex:Female Date:04/03/2024 Address: [address], [facility] Pcp:Taz Polk Subjective: * Chief Complaints: * 1 . [facility], on tirzepatide, appetite suppression is lasting 4-5 days, no side effects, increased exercise this past week, no new concerns, *ask about difference in medication next appt. 2. Desired weight loss: 45 lbs, +0.2 lbs since last visit, -34.4 lbs total. 3. No history MTC or MEN2 or pancreatitis. 4. Concerned about future DM and OA. * Medical History: Objective: * Vitals: Assessment: * Assessment: 1. M orbid (severe) obesity due to excess calories - E66.01 (Primary) 2 . C hronic fatigue, unspecified - R53.82 3 . O ther fatigue - R53.83 ?4. O ther malaise - R53.81 Plan: * Treatment: * Procedures: [facility]: Weight Management: tirzepatide I ndication w eight loss C oncentration 1 0 mg/mL V olume Administered 0 .45 mL D ose Administered 4 .5 mg R oute S Q L ocation L UA F requency w eekly L ot Number/Expiration 0 M edication Source A H Nutraceutical Compounding A dverse Reaction N one * Follow Up: 1 Week (Reason: GLP-1 Agonist Administration) * Billing Information: * Visit Code: * Procedure Codes: 76523 [facility] - Weekly (tirzepatide) (0.5-5 mg) Tier 1. * Electronic signature of Patraji Gambino MD, FAAAAI on 04/03/2024 at 08:32 AM PROCESS CHEMIST Sign off status: Pending * Provider: Magi Gambino MD Date: 04/03/2024 Generated for Karen trujillo/Amaya/Oviitting on: 04/03/2024 08:32 AM PROCESS CHEMIST
--- OUTSIDE RECORDS SUMMARY | 2024-04-03 08:33 | XMS_ITS | Patient Health Summary ---
Author Organization [facility] Address [address] [place] [address] Care Team Providers Care Chorus Master Name Role Phone Taz Polk DO Primary Care Provider [phone] Note from [facility],non-owned Affiliates and Associated Physician Practices is amultiple site organization consisting of ambulatory clinics and hospital sitesin [place], [place], [place] and [place]. This disclosure is being madepursuant to the Care Everywhere program and may not contain all information available regarding this patient. Last updated 17.[facility] Allergies No known active allergies Medications * Be aware that medications may not be up to date on this document. Alwaysverify current medications with the patient. * lisinopril-hydroCHLOROthiazide (PRINZIDE; ZESTORETIC) 20-12.5 MG tablet (Started 12/21/2017) TK 1 T PO QD 3 refills left Immunizations * INFLUENZA VACCINE, HIGH-DOSE, QUADR. (FLUZONE HIGH-DOSE QUADRIVALENT; 65Y+), 0.7 ML (HD-IIV4)(Given 11/16/2019) * iNFLUENZA VACCINE, RECOM-HASSAN, QUADR. (FLUBLOCK QUADRIVALENT; 18Y+) (RIV4)(Given 12/04/2017) Social History Tobacco Use Types Packs/Day Years Used Date Smoking Tobacco: Never Smokeless Tobacco: Never Sex and Gender Information Value Date Recorded Sex Assigned at Not on file Gender Identity Not on file Sexual Orientation Not on file Last Filed Vital Signs Vital Sign Reading Time Taken Comments Blood Pressure 132/82 01/18/2018 2:42 PM [employer] [facility] Pulse 92 01/18/2018 2:42 PM [employer] Temperature 36.9 C (98.4 F) 01/18/2018 2:42 PM [employer] [facility] Respiratory Rate - - Oxygen Saturation 96% 01/18/2018 2:42 PM [employer] Inhaled Oxygen Concentration - - Weight 83.9 kg (185 lb) 01/18/2018 2:42 PM [employer] Height 166.4 cm (5' 5.5 ) 01/18/2018 2:42 PM [employer] [facility] Body Mass Index 30.32 01/18/2018 2:42 PM [employer] [facility] Procedures * MRI KNEE LEFT WO CONTRAST(Performed 10/12/2023) Performed for Sprain of medial collateral ligament of left knee, initial encounter, Acute pain of left knee, Primary osteoarthritis of left knee * DERMATOPATHOLOGY(Performed 09/07/2022) Results * MRI KNEE WO CONT LEFT (10/12/2023 8:04 AM CDT) Anatomical Region Laterality Modality Lower Extremity Magnetic Resonan ce 10/12/2023 9:21 AM CDT Impressions 10/12/2023 9:30 AM CDT 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 There is no marrow infiltrative process. There is tricompartmental joint space narrowing, chondromalacia and hypertrophic spurring. These findings are most severe in the medial and patellofemoral compartments. A full-thickness osteochondral lesion is not identified. Anterior/posterior cruciate ligaments, medial/lateral collateral ligaments, and quadriceps/patellar tendons are intact and unremarkable. There is chronic degradation of the medial and lateral menisci with superimposed irregular tearing of the posterior horn of the medial meniscus. There is no patellar retinacular disruption or patellar dislocation. A moderate-sized joint effusion is noted. There is a moderate-sized multiseptated Burgos's cyst in the popliteal fossa which measures 4 cm in craniocaudal extent and 1.7 cm in anteroposterior extent. Procedure Note Rebel Pickett MD - 10/12/2023 EXAM: MRI KNEE LEFT WO CONTRAST INDICATION: Left knee pain and swelling TECHNIQUE: Multiplanar, multisequence magnetic resonance imaging of the knee performed without contrast FINDINGS: There is no fracture, dislocation or osseous destruction. There is no marrow infiltrative process. There is tricompartmental joint space narrowing, chondromalacia and hypertrophic spurring. These findings are most severe in the medial and patellofemoral compartments. Afull-thickness osteochondral lesion is not identified. Anterior/posterior cruciate ligaments, medial/lateral collateralligaments, and quadriceps/patellar tendons are intact and unremarkable. There is chronic degradation of the medial and lateral menisci with superimposed irregular tearing of the posterior horn of the medial meniscus. There is no patellar retinacular disruption or patellar dislocation. A moderate-sized joint effusion is noted. There is a moderate-sized multiseptated Burgos's cyst in the popliteal fossa which measures 4 cm in craniocaudal extent and 1.7 cm in anteroposterior extent. 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 with superimposed large irregular tear in the posterior horn of the medial meniscus Joint effusion and Burgos's cyst > Interpreting Provider: Rebel Pickett JR, MD on 10/12/2023 9:30 AM Cathy Pinto EMELY MR ORDERABLES * DERMATOPATHOLOGY (09/07/2022 10:27 AM CDT) Case Report Dermatopathology Report Case: [id number] Authorizing Provider: Melania Whitehead MD Collected: 09/07/2022 10:27 AM Ordering Location: [facility] DermPath Lab Received: 09/07/2022 04:17 PM Pathologist: Nicholas Hwang MD Specimen: Skin, left thigh 3 4:42 PM CDT DERMATOPATHOLOGY LABORATORY Final Diagnosis [...] characteristic determined by the Dermatopathology Laboratory at [facility], directed by Dr. Brennen Hwang. These tests need not be, and therefore are not, approved by the [place] Food and Drug Administration. The tests are used for clinical purposes. Billing Codes Specimen Charges Stain Charges 22814 1 3 4:42 PM CDT DERMATOPATHOLOGY LABORATORY Embedded Images 3 4:42 PM CDT DERMATOPATHOLOGY LABORATORY Pathology/Cytolo gy TISSUE SPECIMEN FROM SKIN / Unknown 09/07/2022 10:27 AM CDT 09/07/2022 4:17 PM CDT Melania Whitehead MD LAB - PATHOLOGY/CYTO LOGY ORDERABLES DERMATOPATHOLOGY LABORATORY [facility] - Department of Dermatology [facility] Medicine [address] [place] [address], [address] [phone] Care Teams Chorus Master Relationship Specialty Start Date End Date Taz Polk DO PCP - General 01/18/18
--- OUTSIDE RECORDS SUMMARY | 2024-04-03 08:33 | XMS_ITS | Clinical Summary ---
Author Organization [facility] Address [address] [place] [address] Care Team Providers Care Supervisor Hanging And Trimming Name Role Phone Taz Polk DO Primary Care Provider [phone] Allergies No known active allergies Medications nitroglycerin (NITROSTAT) 0.[address] 1 tablet (0.4 mg total) under the tongue every 5 (five) minutes as needed for chest pain May repeat dose q 5 min, up to 3 doses total 25 tablet 6 05/17/2022 Active irbesartan (AVAPRO) 300 mg tablet TAKE 1 TABLET BY MOUTH EVERY NIGHT 90 tablet 3 05/02/2023 Active clopidogreL (PLAVIX) 75 mg tablet TAKE 1 TABLET(75 MG) BY MOUTH DAILY 90 tablet 3 08/23/2023 Active isosorbide mononitrate ER (IMDUR) 30 mg 24 hr tablet TAKE 1 TABLET(30 MG) BY MOUTH DAILY 90 tablet 3 08/23/2023 Active isosorbide mononitrate ER (IMDUR) 60 mg 24 hr tablet Take 1 tablet (60 mg total) by mouth daily Take with Imdur 30 mg daily for a total of 90 mg daily. 90 tablet 3 08/25/2023 Active atorvastatin (LIPITOR) 80 mg tablet TAKE 1 TABLET(80 MG) BY MOUTH DAILY 90 tablet 3 09/20/2023 Active amLODIPine (NORVASC) 10 mg tablet TAKE 1 TABLET(10 MG) BY MOUTH EVERY NIGHT 90 tablet 3 10/27/2023 Active furosemide (LASIX) 20 mg tablet TAKE 1 TABLET(20 MG) BY MOUTH DAILY 90 tablet 1 12/19/2023 Active Active Problems Problem Noted Date Diagnosed Date Angina pectoris, unstable ([facility]/HCC) 10/06/2022 Intervertebral disc disorder with radiculopathy of lumbar region 10/02/2020 Family history of diabetes mellitus 03/23/2020 Elevated blood sugar 03/23/2020 Assessment & Plan (03/23/2020 8:52 PM CUSTOMER SERVICE ENGINEER): Labs. Continue low-carb (<150 g/day), low-glycemic diet. Weight loss counseling, encounter for 02/12/2020 Assessment & Plan (10/26/2022 10:19 AM CDT): Reviewed calorie restriction based on BMR as previously detailed. Reviewed recommendation/goal of >/= 150 minutes/week moderate-intensity aerobic exercise. Continue current plan. Assessment & Plan (06/15/2022 10:04 AM CDT): Reviewed calorie restriction based on BMR as previously detailed. Reviewed recommendation/goal of >/= 150 minutes/week moderate-intensity aerobic exercise. Asked to keep detailed food diary for at least 1 week and bring to next visit and/or continue tracking on phone. Assessment & Plan (03/18/2022 10:12 PM CUSTOMER SERVICE ENGINEER): Reviewed calorie restriction based on BMR as previously detailed. Reviewed recommendation/goal of >/= 150 minutes/week moderate-intensity aerobic exercise. Asked to try to track consistently with Lose It yahaira for at least 1 week to help identify calorie/carb/protein intake. Assessment & Plan (11/21/2021 5:29 PM CDT): Reviewed calorie restriction based on BMR as previously detailed. Reviewed recommendation/goal of >/= 150 minutes/week moderate-intensity aerobic exercise. Asked to keep detailed food diary for at least 1 week and bring to next visit and/or continue tracking on phone. Assessment & Plan (09/05/2020 9:02 AM CDT): Reviewed calorie restriction based on BMR as previously detailed. Reviewed recommendation/goal of >/= 150 minutes/week moderate-intensity aerobic exercise. Asked to keep detailed food diary for at least 1 week and bring to next visit and/or continue tracking on phone. Assessment & Plan (06/22/2020 9:25 PM CDT): Reviewed calorie restriction based on BMR as previously detailed. Reviewed recommendation/goal of >/= 150 minutes/week moderate-intensity aerobic exercise. Asked to keep detailed food diary for at least 1 week and bring to next visit and/or continue tracking on phone. Assessment & Plan (06/07/2020 11:51 AM CDT): Reviewed calorie restriction based on BMR as previously detailed. Reviewed recommendation/goal of >/= 150 minutes/week moderate-intensity aerobic exercise. Asked to keep detailed food diary for at least 1 week and bring to next visit and/or continue tracking on phone. Assessment & Plan (03/23/2020 8:52 PM CUSTOMER SERVICE ENGINEER): Reviewed calorie restriction based on BMR as previously detailed. Reviewed recommendation/goal of >/= 150 minutes/week moderate-intensity aerobic exercise. Asked to keep detailed food diary for at least 1 week and bring to next visit and/or continue tracking on phone. Assessment & Plan (02/12/2020 8:32 AM CUSTOMER SERVICE ENGINEER): Discussed that significant health benefits/risk reduction may be seen with even 5% weight loss. Discussed that weight loss will require calorie deficit. Calculated basal metabolic rate and estimated total energy expenditure; discussed 500-1000 kcal/day deficit to lose 1-2 lb per week. Asked to keep detailed food diary for at least 1 week and bring to next visit. Discussed relatively small, although significant, role of exercise in weight loss; greater importance in weight maintenance as shown in Look Ahead study and National Weight Control Registry. Discussed recommendation/goal for 150 minutes per week moderate-intensity aerobic exercise. Metabolic and nutritional disorder 02/12/2020 Assessment & Plan (10/26/2022 10:20 AM CDT): Reviewed most recent labs available. Continue low-carb (<150 g/day), low- glycemic diet. Assessment & Plan (07/25/2022 1:28 PM CDT): Labs. Reviewed most recent labs available. Continue low-carb (<150 g/day), low-glycemic diet. Assessment & Plan (03/18/2022 10:13 PM CUSTOMER SERVICE ENGINEER): Continue low-carb (<150 g/day), low-glycemic diet. Discussed need for labs and next steps after obtained. Assessment & Plan (11/21/2021 5:30 PM CDT): Labs. Reviewed interim labs. Continue low-carb (<150 g/day), low-glycemic diet. Assessment & Plan (09/05/2020 9:02 AM CDT): Continue low-carb (<150 g/day), low-glycemic diet. Assessment & Plan (06/22/2020 9:29 PM CDT): Continue low-carb (<150 g/day), low-glycemic diet. Assessment & Plan (06/07/2020 11:54 AM CDT): Reviewed labs with her. SUBHASH-IR 4.1. Continue low-glycemic diet. Provided add'l info on Mediterranean diet. Assessment & Plan (02/12/2020 9:07 AM CUSTOMER SERVICE ENGINEER): Reviewed recent labs. Discussed increased risk for DM in setting of obesity and FHx DM. Labs. Discussed insulin resistance including effect on weight and risk for progression to diabetes. Recommended low-carb, low-glycemic diet; choose whole grains and avoid more highly processed carbohydrates. Discussed potential benefits of this w/r/t gut microbiome. Referred to ADA and [facility] websites for additional information on topics including glycemic index/carbohydrate choices, protein sources. JASSI-inhibitor cough 04/20/2019 Assessment & Plan (04/20/2019 11:38 AM CUSTOMER SERVICE ENGINEER): I will stop her lisinopril and start irbesartan 300 mg. Palpitations 04/20/2019 Assessment & Plan (04/20/2019 11:38 AM CUSTOMER SERVICE ENGINEER): She reports brief sporadic palpitations. At this time we will continue to monitor him. She she will have some monitoring when she is at cardiac rehab. If these become more frequent I will have her wear a 30 day monitor cardiac telemetry Class 1 obesity with serious comorbidity and body mass index (BMI) of 32.0 to 32.9 in adult 03/30/2019 Assessment & Plan (10/26/2022 10:22 AM CDT): Obesity is improving after recent increase in weight . Plan: Diet interventions: as noted., Regular aerobic exercise program discussed., and Medication as prescribed. Continue zonisamide. Follow up in [] 1 month; [] 2 months; [x] 3 months; [] 6 months; [] Other: Assessment & Plan (07/25/2022 1:29 PM CDT): Obesity is improved.. Plan: Diet interventions: as noted.., Regular aerobic exercise program discussed. and Medication as prescribed. Taper off of topiramate. Follow up in [] 1 month; [] 2 months; [x] 3 months; [] 6 months; [] Other: Assessment & Plan (03/18/2022 10:11 PM CUSTOMER SERVICE ENGINEER): Obesity is unchanged. Diet interventions: as noted. Regular aerobic exercise program discussed. Plan- Continue pharmacotherapy. Topiramate 100 mg BID. Continue diet/exercise interventions as discussed. Schedule follow up with Dr. Snyder in 3 months. Assessment & Plan (11/21/2021 5:31 PM CDT): Obesity is improved.. Plan: Diet interventions: as noted.., Regular aerobic exercise program discussed. and Medication as prescribed. Increase topiramate to 100 mg BID. Assessment & Plan (09/05/2020 9:05 AM CDT): Obesity is improving with treatment. Diet interventions: as noted. Regular aerobic exercise program discussed. Pharmacotherapy as ordered. Increase topiramate to 1 1/2 tablets BID. Assessment & Plan (06/22/2020 9:31 PM CDT): Obesity is unchanged. Behavioral treatment: recommended counseling and suggested [place] BMI. Diet interventions: as noted. Regular aerobic exercise program discussed. Pharmacotherapy as ordered. Discussed options and will start topiramate. Discussed risks, benefits, alternatives, potential side effects. Patient made aware that use of this medication for weight loss is off label. Assessment & Plan (03/23/2020 8:53 PM CUSTOMER SERVICE ENGINEER): Obesity is unchanged. Diet interventions: as noted. Regular aerobic exercise program discussed. Assessment & Plan (03/30/2019 9:05 AM CUSTOMER SERVICE ENGINEER): Recommend lifestyle modifications including physical activity and dietary modification Chronic fatigue 03/30/2019 Assessment & Plan (02/12/2020 9:04 AM CUSTOMER SERVICE ENGINEER): Labs. Discussed importance of adequate sleep; good sleep hygiene in controlling weight as well as for overall health. Assessment & Plan (04/20/2019 11:42 AM CUSTOMER SERVICE ENGINEER): She does have signs and symptoms compatible with sleep apnea. She will make an appointment for sleep study. Assessment & Plan (03/30/2019 9:21 AM CUSTOMER SERVICE ENGINEER): She has some signs and symptoms compatible with sleep apnea. We will refer her for a sleep study. Coronary artery disease 03/13/2019 Overview (04/16/2019): Underwent cardiac catheterization in January 2019. This revealedMultivessel CAD with 60-70% stenosis of the mid LAD bifurcating with a 60-70% stenosis of a large 2nd diagonal, 60-80% stenosis of OM1, mild RCA disease, mild anterolateral and apical hypo, EF 55%. These were felt difficult for intervention and patient was treated medically. She was able to exercise 12 Mets on a treadmill stress test in November 2018 which was suggestive of ischemia. She had nonischemic IFR of her ramus and diagonal on April 12. She had drug-eluting stent placed in her LAD Assessment & Plan (12/22/2023 9:35 AM CUSTOMER SERVICE ENGINEER): Coronary artery disease s/p PCI to mid LAD in 2019. Had a LHC in 09/2022 with patent stents and mild-moderate disease elsewhere and nonischemic iFR of 0.994. She denies any angina. Continue atorvastatin 80 mg daily, imdur 60 mg in the am and 30 mg in the pm, and Plavix 75 mg daily. Assessment & Plan (05/07/2022 9:18 AM CDT): She is known to have coronary artery disease and is status post percutaneous coronary intervention to her mid LAD with a 2.5 x 22 mm dwaine drug-eluting stent in 2019. Since then she has remained chest pain-free. She is compliant to medical therapy and continues take aspirin, Lipitor, Imdur 30, amlodipine 5 and irbesartan 300 mg. Assessment & Plan (04/17/2021 8:34 AM CUSTOMER SERVICE ENGINEER): She is 2 years post PCI. Will stop clopidogrel and continue low dose aspirin. Ctn statin. BP well controlled. Encouraged increase in physical activity. Assessment & Plan (10/31/2020 10:51 AM CDT): Very rare chest pain. Good exertional capacity. Encouraged continued exercise. We will continue her current medical therapy. We discussed that if she has worsening chest pain, we will start a low-dose of metoprolol. At this juncture, she prefers to not increase her medication burden. We will continue to monitor symptoms as her angina is very well controlled now after PCI and with continue medical therapy including high-intensity statin, dual antiplatelet therapy, Imdur. Assessment & Plan (04/18/2020 10:26 AM CUSTOMER SERVICE ENGINEER): The patient has had a PCI to the LAD in March of 2019 with improvement her chest discomfort. She does have intermittent chest discomfort that are nonexertional in nature. She has moderate disease of the obtuse marginal as well as a large 2nd diagonal branch. At this time, we recommend continued medical management with Plavix and will stop aspirin. She should continue secondary risk factor management with blood pressure and lipid control. We will have her continue Imdur 30 mg daily and she has sublingual nitroglycerin if she has chest discomfort. If she has progression of chest discomfort or exertional symptoms, would be reasonable to consider coronary angiography with physiologic evaluation to further evaluate for progression of disease. We discussed performing stress test to further evaluate her symptoms as well. She preferred to try to increase activity to see if he had recurrent chest pain. We again advised her of the importance of contacting us if she has recurrent symptoms Assessment & Plan (11/09/2019 10:20 AM CDT): She underwent LHC and LAD [place] in 03/2019 with essentially resolution of her chest pain. She has minimal pains currently and none with exertion. We will continue her aspirin, clopidogrel, atorvastatin, and imdur. We will check a TTE given her lasix requirement. Assessment & Plan (04/20/2019 11:36 AM CUSTOMER SERVICE ENGINEER): She has had a couple of episodes of chest pressure last lasting a minute which self-resolved. She has had no exertional symptoms. Is possible she may have had some coronary artery spasm following the procedure. She has been relatively asymptomatic the past few days. I have told okay to take nitroglycerin if needed. At this time we will continue to monitor her symptoms and potentially add a long-acting nitrate. I would like to start cardiac rehab. Assessment & Plan (03/30/2019 9:04 AM CUSTOMER SERVICE ENGINEER): She has symptoms consistent with stable angina CCS class 3. The stress test and cardiac CT were consistent with CAD, whereas cardiac catheterization did reveal at least moderate degree disease in the LAD and LCX. Unfortunately, no films were available for review today. It does not seem that she is having acute coronary syndrome which required surgery cardiac catheterization. Accordingly, we will try to obtain the films from [facility] and review it. Depending on the findings, we might recommend repeat cardiac catheterization and/or revascularization. Before the review, we will continue her current regimen. - continue aspirin 81 mg daily, amlodipine 5 mg daily, atorvastatin 40 mg daily, lisinopril 20 mg daily, nitroglycerin p.r.n.. - will try to obtain and review films from [facility]. - depending on how the film looks, we may recommend repeat cardiac catheterization/revascularization next week Hypercholesteremia 03/13/2019 Assessment & Plan (05/07/2022 9:20 AM CDT): Lipid panel showing that LDL is at goal. Will make no changes to her current medical therapy the patient will continue take Lipitor 80 mg q.h.s. Will repeat lipid panel Assessment & Plan (04/18/2020 9:50 AM CUSTOMER SERVICE ENGINEER): Her lipids are fairly well controlled few months ago. Will continue to Assessment & Plan (04/20/2019 11:38 AM CUSTOMER SERVICE ENGINEER): She is on high-intensity statin. She has good control in this. I will make no changes to this. Assessment & Plan (03/30/2019 9:05 AM CUSTOMER SERVICE ENGINEER): Most recent LDL cholesterol 51 in 01/2019. This is under control. Will continue current management. - continue atorvastatin 40 mg daily Visit for wound check 2019 Abnormal stress test 11/29/2018 Chest tightness 11/29/2018 Essential hypertension 11/29/2018 Assessment & Plan (12/22/2023 9:36 AM CUSTOMER SERVICE ENGINEER): Well controlled. Continue amlodipine 10 mg daily and irbesartan 300 mg daily. BMP and CBC today. Assessment & Plan (05/07/2022 9:19 AM CDT): Her blood pressure is also at goal will continue with current regimen of amlodipine with irbesartan. Assessment & Plan (04/17/2021 8:34 AM CUSTOMER SERVICE ENGINEER): Blood pressure well controlled. Will recheck BMP as she is on a diuretic. Assessment & Plan (10/31/2020 10:52 AM CDT): Her blood pressure is well controlled. We will make no changes to her regimen today. Continue amlodipine, irbesartan, furosemide. We will check a CMP. Assessment & Plan (04/18/2020 9:45 AM CUSTOMER SERVICE ENGINEER): Her blood pressure is currently well controlled right now. We will continue amlodipine, irbesartan, and Imdur. Her labs from February of this year are stable with her creatinine and electrolytes within normal range. Assessment & Plan (02/12/2020 9:05 AM CUSTOMER SERVICE ENGINEER): Reviewed role of diet, exercise, weight loss in controlling blood pressure. Recommended low sodium/DASH diet. Continue current medications. Appropriately on JASSI-I/ARB. Assessment & Plan (11/09/2019 10:18 AM CDT): Her BP is well controlled on her current regimen of amlodipine and irbesartan. Assessment & Plan (04/20/2019 11:37 AM CUSTOMER SERVICE ENGINEER): She reports that her blood pressure has been elevated on a few occasions. I will stop her lisinopril as she has an JASSI-inhibitor cough. I will start irbesartan 300 mg a day. After to monitor blood pressure at home. I will increase her amlodipine to 10 mg if her blood pressure remains suboptimally controlled. Assessment & Plan (03/30/2019 9:05 AM CUSTOMER SERVICE ENGINEER): Blood pressure is under reasonable control this visit. Will continue current management. Her heart rate is rather low to tolerate beta akash. - continue amlodipine 5 mg daily, lisinopril 20 mg daily - recommend keeping a blood pressure log. Family history of premature coronary artery dise ase 11/29/2018 Assessment & Plan (03/30/2019 9:05 AM CUSTOMER SERVICE ENGINEER): See assessment and plan above for coronary artery disease Hyperlipidemia Assessment & Plan (12/22/2023 9:37 AM CUSTOMER SERVICE ENGINEER): LDL at goal on labs from 04/2023. Continue Atorvastatin 80 mg daily. Assessment & Plan (04/17/2021 8:34 AM CUSTOMER SERVICE ENGINEER): Her cholesterol is well controlled on her lipid panel 6 months ago. Will repeat this next year. Assessment & Plan (10/31/2020 10:52 AM CDT): Her LDL was suppressed 1 year ago on atorvastatin 80 mg daily. We will recheck a lipid panel and CMP today for adherence and therapeutic effect. Assessment & Plan (02/12/2020 9:09 AM CUSTOMER SERVICE ENGINEER): Reviewed recent lipid panel -- LDL in good range. Discussed role of diet, exercise and weight loss in improving lipid profile. Assessment & Plan (11/09/2019 10:19 AM CDT): She continues on high intensity statin with atorvastatin 80. We will check a lipid panel. Obesity (BMI 30.0-34.9) Assessment & Plan (10/31/2020 10:55 AM CDT): She is working on weight loss with diet and exercise and making progress. She was congratulated on her efforts and further progress is encouraged. Assessment & Plan (06/07/2020 11:54 AM CDT): Obesity is improving with treatment. Diet interventions: as nohted. Regular aerobic exercise program discussed. Pharmacotherapy as ordered. Assessment & Plan (04/18/2020 9:47 AM CUSTOMER SERVICE ENGINEER): The patient is following with Dr. Snyder about behavioral, dietary and exercise based interventions for her obesity. We discussed that she does not have any limitations from a cardiovascular perspective and should exercise/continue activities that she enjoys. Assessment & Plan (02/12/2020 9:05 AM CUSTOMER SERVICE ENGINEER): Obesity is worsening. General weight loss/lifestyle modification strategies discussed (elicit support from others; identify saboteurs; non-food rewards, etc). Behavioral treatment: recommended counseling. Diet interventions: as noted. Informal exercise measures discussed, e.g. taking stairs instead of elevator. Regular aerobic exercise program discussed. More detailed recommendations pending review of labs, food record. Assessment & Plan (11/09/2019 10:19 AM CDT): She has a BMI of 35 and is extremely worried about her weight. We will refer her [facility] the [facility] nons[facility] weight management program. Immunizations Immunization Administration Dates Next Due Influenza, Unspecified 12/11/2018 Surgical History Surgery Date Site/Laterality Comments SECTION CARDIAC CATHETERIZATION 04/12/2019 [place] to LAD x 1 CORONARY STENT PLACEMENT 06/07/2022 Medical History Medical History Date Comments Hypertension Back pain Coronary artery disease Hyperlipidemia Heart disease February 2019 Family History Medical History Relation Name Comments Diabetes Daughter Type 1 -- Dx 27 yo CABG and redo CABG Father Jose Waldron j luis trujillo 2nd CABG, age 45 Coronary artery disease Father Jose Waldron Diabetes Father Jose Waldron Hyperlipidemia Father Jose Waldron Hypertension Father Jose Waldron CABG and redo CABG Mother Melanie Waldron zakiai ronnie 2nd CABG, age 71. Cancer Mother Melanie Waldron Coronary artery disease Mother Melanie Waldron Hyperlipidemia Mother Melanie Waldron Hypertension Mother Melanie Waldron Relation Name Status Comments Daughter Father Jose Waldron (Age 45) Mother Melanie Waldron (Age 71) Social History Tobacco Use Types Packs/Day Years Used Date Smoking Tobacco: Never Cigarettes Passive Smoke Exposure: Never Smokeless Tobacco: Never Tobacco Cessation:Counseling Given: No Alcohol Use Standard Drinks/Week Comments Yes 0 (1 standard drink = 0.6 oz pur e alcohol) occasional AUDIT-C Answer Date Recorded Q1: How often do you have a drink containing alcohol? Never 06/07/2022 Q2: How many drinks containi ng alcohol do you have on a typical day when you are drinking? Patient does not drink Q3: How often do you have si x or more drinks on one occasion? Never 06/07/2022 Personal Safety Answer Date Recorded Have you ever been in or are you currently in a harmful physical or emotional relationship or is someone making you feel afraid or unsafe? Denies 10/11/2022 Comments No Sex and Gender Information Value Date Recorded Sex Assigned at Not on file Legal Sex Female 1:35 PM CDT Gender Identity Female 08/29/2020 7:30 AM CDT Sexual Orientation Not on file Obstetrics History Last Filed Vital Signs Vital Sign Reading Time Taken Comments Blood Pressure 118/70 12/22/2023 8:52 AM CUSTOMER SERVICE ENGINEER Pulse 55 12/22/2023 8:52 AM CUSTOMER SERVICE ENGINEER Temperature 36.1 C (96.9 F) 10/26/2022 10:02 AM CDT Respiratory Rate 18 10/26/2022 10:02 AM CDT Oxygen Saturation 98% 12/22/2023 8:52 AM CUSTOMER SERVICE ENGINEER Inhaled Oxygen Concentration - - Weight 80.3 kg (177 lb) 12/22/2023 8:52 AM CUSTOMER SERVICE ENGINEER Height 165.1 cm (5' 5 ) 12/22/2023 8:52 AM CUSTOMER SERVICE ENGINEER Body Mass Index 29.45 12/22/2023 8:52 AM CUSTOMER SERVICE ENGINEER Plan of Treatment Health Maintenance Due Date Last Done Comments Breast Cancer Screening-Mammogram 1955 Colon Cancer Screening-Colonoscopy 1955 Depression Screening 1955 Hepatitis C Screening 1955 Osteoporosis Screening-Bone Density Scan 1953 Hepatitis B Screening 1971 Well Visit 65+ 2018 Pneumococcal vaccine 65+ (2 of 2 - PPSV23) 12/12/2019 12/11/2018 Fall Risk Assessment 10/12/2023 10/11/2022 Covid-19 Vaccine (2023-2 5 season) 2023 11/29/2021, 09/06/2021, 12/04/2020, Additional history exists Influenza Vaccine (#1) 2023 , 11/29/2020, 11/16/2019, Additional history exists DTaP/Tdap/Td Vaccine (2 - Td or Tdap) 12/11/2028 12/11/2018 Zoster Vaccine Completed 10/27/2018, 08/23/2018 Medical Devices Implanted Type Area Information Security Director Device Identifier Shelf Expiration Date Model / Serial / Lot [employer] Angio-Seal Vip 6fr Closere Device [id number] - [id number] - [id number] Implanted:Qty : 1 on 06/07/2022 by Lonnie Ahmadi MD at [facility] Collagen Right: Femoral [employer] 12/14/2022 [id number] / [id number] / [id number] [employer] X [id number] Resolute Dwaine 2.5mm 2.1-2.7fr 22mm 140cm Rapid Exchange - [id number] Implanted:Qty : 1 on 04/12/2019 by Lonnie Ahmadi MD at [facility] Stent N/A: Coronary [employer] 08/11/2019 [id number] / / [id number] [employer]onic Card Vasc Surgery 2.00 X 18mm [place] [facility] Coronary Stent [id number] - [id number] - [id number] Implanted:Qty : 1 on 06/07/2022 by Lonnie Ahmadi MD at [facility] Stent Left: Diagnonal Coronary Artery [employer] Card Vasc Surgery 03/05/2023 [id number] / [id number] / [id number] [facility] [id number] Angio-Seal Evolution 8fr .038in Guidewire Bypass Tube Suture - [id number] - [id number] Implanted:Qty : 1 on 04/12/2019 by Lonnie Ahmadi MD at [facility] N/A: Arterial [facility] 12/15/2019 [id number] / [id number] / [id number] Insurance MEDICARE SOLUTIONS [facility] MEDICARE Address: [address] [address] [place] [address] MEDICARE [facility] MEDICARE [facility] BL CHOICE PRF [place] MEDICARE [facility] Advance Directives For more information, please contact: [phone] * Full Code (Latest Code Status on File) Date Activated Date Inactivated Comments 06/07/2022 2:33 PM 06/07/2022 10:06 PM * Full Code Date Activated Date Inactivated Comments 04/12/2019 11:11 AM 04/12/2019 6:52 PM Care Teams Supervisor Hanging And Trimming Relationship Specialty Start Date End Date Taz Polk DO PCP - General Internal Medicine 11/18/17
--- OUTSIDE RECORDS SUMMARY | 2024-04-03 08:33 | XMS_ITS ---
Author Organization [facility] Address [address] [place] [address] Care Team Providers Care Automotive Upholsterer Name Role Phone Taz Polk Primary Care Provider Unavailab Ishaan Alston [phone] REASON FOR VISIT [facility] Weight Loss, on tirzepatide, appetite suppression is lasting 4-5 days, no side effects, increased exercise this past week, no new concerns, *ask about difference in medication next appt, Desired weight loss: 45 lbs, +0.2 lbs since last visit, -34.4 lbs total, No history MTC or MEN2 orpancreatitis, Concerned about future DM and OA Medications Medication SIG (Take, Route, Frequency, Duration) Notes Start Date End Date Status Nitroglycerin 0.4 MG 1 tab(s) sublingual ly every 5 minutes Active Irbesartan 300 MG 1 tab(s) orally once a day Active Atorvastatin Calcium 80 MG 1 tab(s) orally once a day Active Furosemide 20 MG 1 tab(s) orally once a day Active amLODIPine Besylate 5 MG 1 tab(s) orally once a day Active Aspirin 81 MG 1 tab(s) orally once a day Not-Taking Isosorbide Mononitrate ER 30 MG 1 tab(s) orally once a day (in the morning) Active Vital Signs Height 64.6 in 03/27/2024 Weight 171.2 lbs 03/27/2024 BMI 28.84 kg/m2 03/27/2024 Encounters Encounter Location Date Provider Diagnosis [facility] [place] ([address]) [address] [place] [id number] 03/27/2024 Ishaan Gambino Morbid (severe) obesity due to excess calories E66.01 ; Chronic fatigue, unspecified R53.82 ; Other fatigue R53.83 and Other malaise R53.81 Assessments Encounter Date Diagnosis (ICD Code) Assessment Notes Treatment Notes Treatment Clinical Notes Section Notes 03/27/2024 Morbid (severe) obesity due to excess calories (ICD-10 - E66.01) 03/27/2024 Chronic fatigue, unspecified (ICD-10 - R53.82) 03/27/2024 Other fatigue (ICD-10 - R53.83) 03/27/2024 Other malaise (ICD-10 - R53.81) Plan Of Treatment Next Appt Details Follow Up: 1 Week, Reason: G LP-1 Agonist Administration Provider Name:Ishaan Gambino , 04/03/2024 10:30:00 AM, [address], [address], [address], Provider Name:Ishaan Gambino , 04/10/2024 09:00:00 AM, [address], [address] [address], [place], [address], Procedure Notes * Category Sub-Category Detail Notes [facility] tirzepatide Indication: weig ht loss Concentration: 10 mg/mL Volume Administered: 0.45 mL Dose Administered: 4.5 mg Route: SQ Location: [facility] Frequency: weekly Lot Number/Expiration: Medication Source: Nutraceutical Comp ounding Adverse Reaction: None Progress Notes * Tyrese TRANanceDOB:[birth year] (69 yo F)Acc No.[id number]:03/27/2024 Weight Loss Patient: Denice HUFFMAN Provider: Magi Gambino MD :1955 A ge:69 Y S ex:Female Date:03/27/2024 [facility] [facility] Pcp:Taz Polk Subjective: * Chief Complaints: * [...] future DM and OA. * Medical History: * Medications: T aking Isosorbide Mononitrate ER 30 MG Tablet Extended Release 24 Hour 1 tab(s) orally once a day (in the morning) , Taking Nitroglycerin 0.4 MG Tablet Sublingual 1 tab(s) sublingually every 5 minutes , Taking Irbesartan 300 MG Tablet 1 tab(s) orally once a day , Taking Atorvastatin Calcium 80 MG Tablet 1 tab(s) orally once a day , Taking Furosemide 20 MG Tablet 1 tab(s) orally once a day , Taking amLODIPine Besylate 5 MG Tablet 1 tab(s) orally once a day , Not-Taking/PRN Aspirin 81 MG Tablet Delayed Release 1 tab(s) orally once a day Objective: * Vitals: H t: 64.6 in, Wt: 171.2 lbs, BMI:28.84Index. Assessment: * Assessment: 1. M orbid (severe) [...] Information: * Visit Code: * Procedure Codes: 02948 [facility] - Weekly (tirzepatide) (0.5-5 mg) Tier 1. * Electronic signature of Sudarshan Gambino MD, FAAAAI on 04/03/2024 at 08:33 AM BOOK SALESMAN Sign off status: Pending * Provider: Magi Gambino MD Date: 0 03/27/2024 Generated for Karen trujillo/Amaya/Oviitting on: 0 04/03/2024 08:33 AM BOOK SALESMAN
--- OUTSIDE RECORDS SUMMARY | 2024-04-03 08:33 | XMS_ITS ---
Author Organization [facility] Address [address] [place] [address] Care Team Providers Care Assembler Small Products Name Role Phone Taz Polk Primary Care Provider Unavailab Ishaan Alston [phone] REASON FOR VISIT [facility] Weight [facility], on tirzepatide, appetite suppression is lasting 4-5 days, no side effects, increased exercise this past week, no new concerns, *ask about difference in medication next appt, Desired weight loss: 45 lbs, +0.6 lbs since last visit, -34.6 lbs total, No history MTC or MEN2 orpancreatitis, Concerned about future DM and OA Medications Medication SIG (Take, Route, Frequency, Duration) Notes Start Date End Date Status Isosorbide Mononitrate ER 30 MG 1 tab(s) orally once a day (in the morning) Active Aspirin 81 MG 1 tab(s) orally once a day Not-Taking Nitroglycerin 0.4 MG 1 tab(s) sublingual ly every 5 minutes Active Irbesartan 300 MG 1 tab(s) orally once a day Active Atorvastatin Calcium 80 MG 1 tab(s) orally once a day Active Furosemide 20 MG 1 tab(s) orally once a day Active amLODIPine Besylate 5 MG 1 tab(s) orally once a day Active Vital Signs Height 64.6 in 03/20/2024 Weight 171.0 lbs 03/20/2024 BMI 28.81 kg/m2 03/20/2024 Encounters Encounter Location Date Provider Diagnosis [facility] [place] ([address]) [address] [place] [phone] 03/20/2024 Ishaan Gambino Morbid (severe) obesity due to excess calories E66.01 ; Chronic fatigue, unspecified R53.82 ; Other fatigue R53.83 and Other malaise R53.81 Assessments Encounter Date Diagnosis (ICD Code) Assessment Notes Treatment Notes Treatment Clinical Notes Section Notes 03/20/2024 Morbid (severe) obesity due to excess calories (ICD-10 - E66.01) 03/20/2024 Chronic fatigue, unspecified (ICD-10 - R53.82) 03/20/2024 Other fatigue (ICD-10 - R53.83) 03/20/2024 Other malaise (ICD-10 - R53.81) Plan Of Treatment Next Appt Details Follow Up: 1 Week, Reason: G LP-1 Agonist Administration Provider Name:Ishaan Gambino , 04/03/2024 10:30:00 AM, [address], [address], [address], Provider Name:Ishaan Gambino , 04/10/2024 09:00:00 AM, [address], [address] [address], [place], [address], Procedure Notes * Category Sub-Category Detail Notes [facility] Weight Management tirzepatide Indication: weig ht loss Concentration: 10 mg/mL Volume Administered: 0.45 mL Dose Administered: 4.5 mg Route: SQ Location: [facility] Frequency: weekly Lot Number/Expiration: Medication Source: Nutraceutical Comp ounding Adverse Reaction: None [facility] Injection Treatment IM, IV Nutrition and Supplement(s) B12: B12 Shot (cyanocobalamin 1000 mcg/mL) Volume: Left Deltoid Progress Notes * Tyrese TRANanceDOB:[birth year] (69 yo F)Acc No.[id number]:03/20/2024 Weight Loss Patient: Denice HUFFMAN Provider: Magi Gambino MD :1955 A ge:69 Y S ex:Female Date:03/20/2024 Address:[address] [place], [place] [address], [facility] Pcp:Taz Polk Subjective: * Chief Complaints: * 1 . [facility], on tirzepatide, appetite suppression is lasting 4-5 days, no side effects, increased exercise this past week, no new concerns, *ask about difference in medication next appt. 2. Desired weight loss: 45 lbs, +0.6 lbs since last visit, -34.6 lbs total. 3. No history MTC or [...] * Vitals: H t: 64.6 in, Wt: 171.0 lbs, BMI:28.81Index. Assessment: * Assessment: 1. M orbid (severe) obesity due to excess calories - E66.01 (Primary) 2 . C hronic fatigue, unspecified - R53.82 3 . O ther fatigue - R53.83 ?4. O ther malaise - R53.81 Plan: * Treatment: * Procedures: [facility] Injection Treatment: IM, IV Nutrition and Supplement(s) B 12 B 12 Shot (cyanocobalamin 1000 mcg/mL) V olume L eft Deltoid [facility]: Weight Management: tirzepatide I ndication w eight loss C oncentration 1 0 mg/mL V olume Administered 0 .45 mL D ose Administered 4 .5 mg R oute S Q L ocation R UA F requency w eekly L ot Number/Expiration 0 -2024 M edication Source A H Nutraceutical Compounding A dverse Reaction N one * Follow Up: 1 Week (Reason: GLP-1 Agonist Administration) * Billing Information: * Visit Code: * Procedure Codes: 33155 [facility] - Weekly (tirzepatide) (0.5-5 mg) Tier 1. 15740 [facility] - B12 (cyanocobalamin) 1 mL. * Electronic signature of Sudarshan Gambino MD, FAAAAI on 04/03/2024 at 08:33 AM MAT INSPECTOR Sign off status: Pending * Provider: Magi Gambino MD Date: 0 03/20/2024 Generated for Karen trujillo/Amaya/Oviitting on: 04/03/2024 08:33 AM MAT INSPECTOR
--- OUTSIDE RECORDS SUMMARY | 2024-04-03 08:33 | XMS_ITS | Patient Health Record ---
Author Organization [facility] Address [address] [place] [address] Care Team Providers Care Storage Worker Name Role Phone Taz Polk Primary Care Provider Unavailab Ishaan Alston Unavailable [phone] July Marshall Unavailable [phone] [facility]Migration, Provider Unavailable Unavailab le Allergies No Known Allergies Reason For Referral No Information Medications Medication SIG (Take, Route, Frequency, Duration) Notes Start Date End Date Status Aspirin 81 MG 1 tab(s) orally once a day Not-Taking Isosorbide Mononitrate ER 30 MG 1 tab(s) orally once a day (in the morning) Active Nitroglycerin 0.4 MG 1 tab(s) sublingual ly every 5 minutes Active Irbesartan 300 MG 1 tab(s) orally once a day Active Atorvastatin Calcium 80 MG 1 tab(s) orally once a day Active Furosemide 20 MG 1 tab(s) orally once a day Active amLODIPine Besylate 5 MG 1 tab(s) orally once a day Active Social History Tobacco Use: Social History Observation Description Date Details (start date - stop date) Never Smoker NA - NA Tobacco Control (Standard) Question Answer Notes Tobacco use: Nonsmoker Problems Problem Type SNOMED Code ICD Code Onset Dates Problem Status W/U Status Risk Notes Problem Morbid obesity (disorder) (447731210) Morbid (severe) obesity due to excess calories (E66.01) Active confirmed Problem Sleep apnea (52651624) Sleep apnea, unspecified (G47.30) Active confirmed Problem Obstructive sleep apnea syndrome (disorder) (77066932) Obstructive sleep apnea (adult) (pediatric) (G47.33) Active confirmed Problem Chronic fatigue syndrome (disorder) (76884689) Chronic fatigue, unspecified (R53.82) Active confirmed Problem Obesity (735439458) Obesity, unspecified (E66.9) Active confirmed Problem Sleep disorder (61088277) Other sleep disorders (G47.8) Active confirmed Problem Hypersomnia (10328915) Hypersomnia, unspecified (G47.10) Active confirmed Vital Signs Oximetry 99 % 03/06/2024 Blood pressure diastolic 75 mm Hg 03/06/2024 Height 64.6 in 03/27/2024 Blood pressure systolic 113 mm Hg 03/06/2024 Weight 171.2 lbs 03/27/2024 BMI 28.84 kg/m2 03/27/2024 Procedures Procedure Date Ordered Date Performed Result Body Sit e Sleep Study WatchPAT 300 (Zoll-Heriberto) 09/26/2023 N/A Sleep Study WatchPAT 300 (Zoll-Heriberto) 04/05/2023 N/A Encounters Encounter Location Date Provider Diagnosis MESHA Steen [address] [place] [phone] 05/11/2023 Ishaan Gambino Morbid (severe) obesity due to excess calories E66.01 ; Chronic fatigue, unspecified R53.82 ; Other fatigue R53.83 and Other malaise R53.81 [facility] ([address]) [address] [place] [address] 05/16/2023 Ishaan Gambino Morbid (severe) obesity due to excess calories E66.01 ; Chronic fatigue, unspecified R53.82 ; Other fatigue R53.83 and Other malaise R53.81 [facility] ([address]) [address] [place] [address] 06/27/2023 Ishaan Gambino Morbid (severe) obesity due to excess calories E66.01 ; Chronic fatigue, unspecified R53.82 ; Other fatigue R53.83 and Other malaise R53.81 [facility] ([address]) [address] [place] [phone] 07/04/2023 Ishaan Gambino Morbid (severe) obesity due to excess calories E66.01 ; Chronic fatigue, unspecified R53.82 ; Other fatigue R53.83 and Other malaise R53.81 [facility] [place] ([address]) [address] [place] [address] 07/12/2023 Ishaan Win Morbid (severe) obesity due to excess calories E66.01 ; Chronic fatigue, unspecified R53.82 ; Other fatigue R53.83 and Other malaise R53.81 [facility] ([address]) [address] [place] [address] 07/25/2023 Ishaan Win Morbid (severe) obesity due to excess calories E66.01 ; Chronic fatigue, unspecified R53.82 ; Other fatigue R53.83 and Other malaise R53.[address] [address] 07/30/2023 Provider Sukhwinder [facility] ([address]) [address] [place] [address] 08/01/2023 Ishaan Win Morbid (severe) obesity due to excess calories E66.01 ; Chronic fatigue, unspecified R53.82 ; Other fatigue R53.83 and Other malaise R53.81 [facility] ([address]) [address] [place] [phone] 08/22/2023 Ishaan Win Morbid (severe) obesity due to excess calories E66.01 ; Chronic fatigue, unspecified R53.82 ; Other fatigue R53.83 and Other malaise R53.81 [facility] ([address]) [address] [place] [address] 09/05/2023 Ishaan Win Morbid (severe) obesity due to excess calories E66.01 ; Chronic fatigue, unspecified R53.82 ; Other fatigue R53.83 and Other malaise R53.81 [facility] ([address]) [address] [place] [address] 09/19/2023 Ishaan Win Morbid (severe) obesity due to excess calories E66.01 ; Chronic fatigue, unspecified R53.82 ; Other fatigue R53.83 and Other malaise R53.81 [facility] ([address]) [address] [place] [address] 09/26/2023 Ishaan Gambino [facility] ([address]) [address] [place] [address] 10/03/2023 Ishaan Gambino Morbid (severe) obesity due to excess calories E66.01 ; Chronic fatigue, unspecified R53.82 ; Other fatigue R53.83 and Other malaise R53.81 [facility] ([address]) [address] [place] [address] 10/18/2023 Ishaan Gambino Morbid (severe) obesity due to excess calories E66.01 ; Chronic fatigue, unspecified R53.82 ; Other fatigue R53.83 and Other malaise R53.81 [facility] ([address]) [address] [place] [address] 10/26/2023 Ishaan Gambino [facility] [address] [place] [address] 10/26/2023 Ishaan Gambino Morbid (severe) obesity due to excess calories E66.01 ; Chronic fatigue, unspecified R53.82 ; Other fatigue R53.83 and Other malaise R53.81 [facility] [address] [facility] [address] [place] [address] 10/26/2023 Ishaan Gambino [facility] ([address]) [address] [place] [address] 11/01/2023 Ishaan Gambino Morbid (severe) obesity due to excess calories E66.01 ; Chronic fatigue, unspecified R53.82 ; Other fatigue R53.83 and Other malaise R53.81 [facility] ([address]) [address] [place] [address] 11/08/2023 Ishaan Gambino Morbid (severe) obesity due to excess calories E66.01 ; Chronic fatigue, unspecified R53.82 ; Other fatigue R53.83 and Other malaise R53.81 [facility] ([address]) [address] [place] [address] 11/15/2023 Ishaan Win Morbid (severe) obesity due to excess calories E66.01 ; Chronic fatigue, unspecified R53.82 ; Other fatigue R53.83 and Other malaise R53.81 [facility] ([address]) [address] [place] [address] 11/22/2023 Ishaan Win Morbid (severe) obesity due to excess calories E66.01 ; Chronic fatigue, unspecified R53.82 ; Other fatigue R53.83 and Other malaise R53.81 [facility] ([address]) [address] [place] [address] 11/29/2023 Ishaan Win Morbid (severe) obesity due to excess calories E66.01 ; Chronic fatigue, unspecified R53.82 ; Other fatigue R53.83 and Other malaise R53.81 [facility] ([address]) [address] [place] [address] 12/06/2023 Ishaan Win Morbid (severe) obesity due to excess calories E66.01 ; Chronic fatigue, unspecified R53.82 ; Other fatigue R53.83 and Other malaise R53.81 [facility] ([address]) [address] [place] [address] 12/13/2023 Ishaan Win Morbid (severe) obesity due to excess calories E66.01 ; Chronic fatigue, unspecified R53.82 ; Other fatigue R53.83 and Other malaise R53.81 [facility] ([address]) [address] [place] [phone] 12/20/2023 Ishaan Win Morbid (severe) obesity due to excess calories E66.01 ; Chronic fatigue, unspecified R53.82 ; Other fatigue R53.83 and Other malaise R53.81 [facility] ([address]) [address] [place] [address] 12/27/2023 Ishaanraj Gambino Morbid (severe) obesity due to excess calories E66.01 ; Chronic fatigue, unspecified R53.82 ; Other fatigue R53.83 and Other malaise R53.81 [facility] ([address]) [address] [place] [address] 01/03/2024 Ishaan Win Morbid (severe) obesity due to excess calories E66.01 ; Chronic fatigue, unspecified R53.82 ; Other fatigue R53.83 and Other malaise R53.81 [facility] ([address]) [address] [place] [address] 01/10/2024 Ishaan Win Morbid (severe) obesity due to excess calories E66.01 ; Chronic fatigue, unspecified R53.82 ; Other fatigue R53.83 and Other malaise R53.81 [facility] ([address]) [address] [place] [address] 01/17/2024 Ishaanraj Gambino Morbid (severe) obesity due to excess calories E66.01 ; Chronic fatigue, unspecified R53.82 ; Other fatigue R53.83 and Other malaise R53.81 [facility] ([address]) [address] [place] [address] 01/24/2024 Ishaan Gambino Morbid (severe) obesity due to excess calories E66.01 ; Chronic fatigue, unspecified R53.82 ; Other fatigue R53.83 and Other malaise R53.81 [facility] ([address]) [address] [place] [address] 01/24/2024 Ishaanraj Gambino [facility] ([address]) [address] [place] [address] 01/31/2024 Ishaan Win Morbid (severe) obesity due to excess calories E66.01 ; Chronic fatigue, unspecified R53.82 ; Other fatigue R53.83 and Other malaise R53.81 [facility] ([address]) [address] [place] [address] 02/06/2024 Ishaan Win Morbid (severe) obesity due to excess calories E66.01 ; Chronic fatigue, unspecified R53.82 ; Other fatigue R53.83 and Other malaise R53.81 [facility] ([address]) [address] [place] [address] 02/16/2024 Ishaan Win Morbid (severe) obesity due to excess calories E66.01 ; Chronic fatigue, unspecified R53.82 ; Other fatigue R53.83 and Other malaise R53.81 [facility] ([address]) [address] [place] [address] 02/22/2024 Ishaan Win Morbid (severe) obesity due to excess calories E66.01 ; Chronic fatigue, unspecified R53.82 ; Other fatigue R53.83 and Other malaise R53.81 [facility] ([address]) [address] [place] [address] 02/22/2024 Ishaan Win Morbid (severe) obesity due to excess calories E66.01 ; Chronic fatigue, unspecified R53.82 ; Other fatigue R53.83 and Other malaise R53.81 [facility] ([address]) [address] [place] [address] 02/28/2024 Ishaan Win Morbid (severe) obesity due to excess calories E66.01 ; Chronic fatigue, unspecified R53.82 ; Other fatigue R53.83 and Other malaise R53.81 [facility] ([address]) [address] [place] [address] 03/06/2024 Ishaan Win Morbid (severe) obesity due to excess calories E66.01 ; Chronic fatigue, unspecified R53.82 ; Other fatigue R53.83 and Other malaise R53.81 [facility] [address] [facility] [address] [place] [address] 03/06/2024 July Marshall Sleep apnea, unspecified G47.30 ; Obstructive sleep apnea (adult) (pediatric) G47.33 ; Chronic fatigue, unspecified R53.82 ; Other fatigue R53.83 and Snoring R06.83 [facility] ([address]) [address] [place] [address] 03/13/2024 Ishaan Gambino Morbid (severe) obesity due to excess calories E66.01 ; Chronic fatigue, unspecified R53.82 ; Other fatigue R53.83 and Other malaise R53.81 [facility] ([address]) [address] [place] [address] 03/20/2024 Ishaan Gambino Morbid (severe) obesity due to excess calories E66.01 ; Chronic fatigue, unspecified R53.82 ; Other fatigue R53.83 and Other malaise R53.81 [facility] ([address]) [address] [place] [address] 03/27/2024 Ishaan Gambino Morbid (severe) obesity due to excess calories E66.01 ; Chronic fatigue, unspecified R53.82 ; Other fatigue R53.83 and Other malaise R53.81 [facility] ([address]) [address] [place] [address] 04/04/2023 Ishaan Gambino Morbid (severe) obesity due to excess calories E66.01 ; Chronic fatigue, unspecified R53.82 ; Other fatigue R53.83 and Other malaise R53.81 [facility] [address] [facility] [address] [place] [address] 04/05/2023 Ishaan Gambino Obstructive sleep apnea (adult) (pediatric) G47.33 ; Sleep apnea, unspecified G47.30 ; Snoring R06.83 ; Hypersomnia, unspecified G47.10 ; Other sleep disorders G47.8 and Obesity, unspecified E66.9 [facility] ([address]) [address] [place] [address] 04/11/2023 Ishaan Gambino Morbid (severe) obesity due to excess calories E66.01 ; Chronic fatigue, unspecified R53.82 ; Other fatigue R53.83 and Other malaise R53.81 [facility] ([address]) [address] [place] [address] 04/18/2023 Ishaan Win Morbid (severe) obesity due to excess calories E66.01 ; Chronic fatigue, unspecified R53.82 ; Other fatigue R53.83 and Other malaise R53.81 [facility] ([address]) [address] [place] [address] 04/25/2023 Ishaan Win Morbid (severe) obesity due to excess calories E66.01 ; Chronic fatigue, unspecified R53.82 ; Other fatigue R53.83 and Other malaise R53.81 [facility] ([address]) [address] [place] [address] 05/02/2023 Ishaan Gambino Morbid (severe) obesity due to excess calories E66.01 ; Chronic fatigue, unspecified R53.82 ; Other fatigue R53.83 and Other malaise R53.81 [facility] ([address]) [address] [place] [address] 05/02/2023 Ishaan Gambino [facility] ([address]) [address] [place] [address] 05/25/2023 Ishaan Gambino Morbid (severe) obesity due to excess calories E66.01 ; Chronic fatigue, unspecified R53.82 ; Other fatigue R53.83 and Other malaise R53.81 [facility] ([address]) [address] [place] [address] 05/30/2023 Ishaan Win Morbid (severe) obesity due to excess calories E66.01 ; Chronic fatigue, unspecified R53.82 ; Other fatigue R53.83 and Other malaise R53.81 [facility] ([address]) [address] [place] [address] 06/06/2023 Ishaan Win Morbid (severe) obesity due to excess calories E66.01 ; Chronic fatigue, unspecified R53.82 ; Other fatigue R53.83 and Other malaise R53.81 [facility] ([address]) [address] [place] [address] 06/13/2023 Ishaan Win Morbid (severe) obesity due to excess calories E66.01 ; Chronic fatigue, unspecified R53.82 ; Other fatigue R53.83 and Other malaise R53.81 [facility] ([address]) [address] [place] [address] 06/20/2023 Ishaan Win Morbid (severe) obesity due to excess calories E66.01 ; Chronic fatigue, unspecified R53.82 ; Other fatigue R53.83 and Other malaise R53.81 [facility] ([address]) [address] [place] [address] 07/18/2023 Ishaan Win Morbid (severe) obesity due to excess calories E66.01 ; Chronic fatigue, unspecified R53.82 ; Other fatigue R53.83 and Other malaise R53.81 [facility] ([address]) [address] [place] [address] 08/10/2023 Ishaan Win Morbid (severe) obesity due to excess calories E66.01 ; Chronic fatigue, unspecified R53.82 ; Other fatigue R53.83 and Other malaise R53.81 [facility] ([address]) [address] [place] [address] 08/29/2023 Ishaan Win Morbid (severe) obesity due to excess calories E66.01 ; Chronic fatigue, unspecified R53.82 ; Other fatigue R53.83 and Other malaise R53.81 [facility] ([address]) [address] [place] [address] 09/12/2023 Ishaan Win Morbid (severe) obesity due to excess calories E66.01 ; Chronic fatigue, unspecified R53.82 ; Other fatigue R53.83 and Other malaise R53.81 [facility] [address] [place] [address] 09/12/2023 Ishaan Gambino [facility] [place] ([address]) [address] [place] [address] 09/26/2023 Ishaan Gambino Morbid (severe) obesity due to excess calories E66.01 ; Chronic fatigue, unspecified R53.82 ; Other fatigue R53.83 and Other malaise R53.81 [facility] [address] [place] [address] 09/26/2023 Ishaan Gambino Obstructive sleep apnea (adult) (pediatric) G47.33 ; Sleep apnea, unspecified G47.30 ; Snoring R06.83 ; Hypersomnia, unspecified G47.10 ; Other sleep disorders G47.8 and Obesity, unspecified E66.9 [facility] ([address]) [address] [place] [address] 10/10/2023 Ishaan Gambino Morbid (severe) obesity due to excess calories E66.01 ; Chronic fatigue, unspecified R53.82 ; Other fatigue R53.83 and Other malaise R53.81 [facility] [address] [place], [place] [address] [address] [place] [address] 04/12/2023 Ishaan Gambino [address] [address] 04/13/2023 Ishaan Gambino [address] [address] 04/28/2023 Ishaan Gambino [facility] [address] [place] [address] [address] [place] [phone] 05/10/2023 Ishaan Gambino [facility] [place] ([address]) [address] [place] [address] 05/17/2023 Ishaan Gambino [facility] [place] ([address]) [address] [place] [address] 06/22/2023 Ishaan Gambino [facility] [place] ([address]) [address] [place] [address] 07/07/[address] [place] [address] 08/21/2023 [facility] [address] [place] [address] 09/19/2023 Ishaan ZIMMER [facility] [address] [place] [address] 10/18/2023 Ishaan [facility] [place] ([address]) [address] [place] [address] 02/13/2024 Ishaan Gambino Assessments Encounter Date Diagnosis (ICD Code) Assessment Notes Treatment Notes Treatment Clinical Notes Section Notes 04/04/2023 Morbid (severe) obesity due to excess calories (ICD-10 - E66.01) 04/04/2023 Chronic fatigue, unspecified (ICD-10 - R53.82) 04/05/2023 Sleep apnea, unspecified (ICD-10 - G47.30) 04/05/2023 Obstructive sleep apnea (adult) (pediatric) (ICD-10 - G47.33) WatchPAT Sleep Study Unit was provided to the patient for tonight's planned procedure. Return tomorrow morning by 9 AM. 04/11/2023 Morbid (severe) obesity due to excess calories (ICD-10 - E66.01) 04/11/2023 Chronic fatigue, unspecified (ICD-10 - R53.82) 04/18/2023 Morbid (severe) obesity due to excess calories (ICD-10 - E66.01) 04/18/2023 Chronic fatigue, unspecified (ICD-10 - R53.82) 04/25/2023 Morbid (severe) obesity due to excess calories (ICD-10 - E66.01) 04/25/2023 Chronic fatigue, unspecified (ICD-10 - R53.82) 05/02/2023 Morbid (severe) obesity due to excess calories (ICD-10 - E66.01) 05/02/2023 Chronic fatigue, unspecified (ICD-10 - R53.82) 05/11/2023 Morbid (severe) obesity due to excess calories (ICD-10 - E66.01) 05/11/2023 Chronic fatigue, unspecified (ICD-10 - R53.82) 05/16/2023 Morbid (severe) obesity due to excess calories (ICD-10 - E66.01) 05/16/2023 Chronic fatigue, unspecified (ICD-10 - R53.82) 05/25/2023 Morbid (severe) obesity due to excess calories (ICD-10 - E66.01) 05/25/2023 Chronic fatigue, unspecified (ICD-10 - R53.82) 05/30/2023 Morbid (severe) obesity due to excess calories (ICD-10 - E66.01) 05/30/2023 Chronic fatigue, unspecified (ICD-10 - R53.82) 06/06/2023 Morbid (severe) obesity due to excess calories (ICD-10 - E66.01) 06/06/2023 Chronic fatigue, unspecified (ICD-10 - R53.82) 06/13/2023 Morbid (severe) obesity due to excess calories (ICD-10 - E66.01) 06/13/2023 Chronic fatigue, unspecified (ICD-10 - R53.82) 06/20/2023 Morbid (severe) obesity due to excess calories (ICD-10 - E66.01) 06/20/2023 Chronic fatigue, unspecified (ICD-10 - R53.82) 06/27/2023 Morbid (severe) obesity due to excess calories (ICD-10 - E66.01) 06/27/2023 Chronic fatigue, unspecified (ICD-10 - R53.82) 07/04/2023 Morbid (severe) obesity due to excess calories (ICD-10 - E66.01) 07/04/2023 Chronic fatigue, unspecified (ICD-10 - R53.82) 07/12/2023 Morbid (severe) obesity due to excess calories (ICD-10 - E66.01) 07/12/2023 Chronic fatigue, unspecified (ICD-10 - R53.82) 07/18/2023 Morbid (severe) obesity due to excess calories (ICD-10 - E66.01) 07/18/2023 Chronic fatigue, unspecified (ICD-10 - R53.82) 07/25/2023 Morbid (severe) obesity due to excess calories (ICD-10 - E66.01) 07/25/2023 Chronic fatigue, unspecified (ICD-10 - R53.82) 08/01/2023 Morbid (severe) obesity due to excess calories (ICD-10 - E66.01) 08/01/2023 Chronic fatigue, unspecified (ICD-10 - R53.82) 08/10/2023 Morbid (severe) obesity due to excess calories (ICD-10 - E66.01) 08/10/2023 Chronic fatigue, unspecified (ICD-10 - R53.82) 08/22/2023 Morbid (severe) obesity due to excess calories (ICD-10 - E66.01) 08/22/2023 Chronic fatigue, unspecified (ICD-10 - R53.82) 08/29/2023 Morbid (severe) obesity due to excess calories (ICD-10 - E66.01) 08/29/2023 Chronic fatigue, unspecified (ICD-10 - R53.82) 09/05/2023 Morbid (severe) obesity due to excess calories (ICD-10 - E66.01) 09/05/2023 Chronic fatigue, unspecified (ICD-10 - R53.82) 09/12/2023 Morbid (severe) obesity due to excess calories (ICD-10 - E66.01) 09/12/2023 Chronic fatigue, unspecified (ICD-10 - R53.82) 09/19/2023 Morbid (severe) obesity due to excess calories (ICD-10 - E66.01) 09/19/2023 Chronic fatigue, unspecified (ICD-10 - R53.82) 09/26/2023 Morbid (severe) obesity due to excess calories (ICD-10 - E66.01) 09/26/2023 Sleep apnea, unspecified (ICD-10 - G47.30) 09/26/2023 Obstructive sleep apnea (adult) (pediatric) (ICD-10 - G47.33) WatchPAT Sleep Study Unit was provided to the patient for tonight's planned procedure. Return tomorrow morning by 9 AM. 09/26/2023 Chronic fatigue, unspecified (ICD-10 - R53.82) 10/03/2023 Morbid (severe) obesity due to excess calories (ICD-10 - E66.01) 10/03/2023 Chronic fatigue, unspecified (ICD-10 - R53.82) 10/10/2023 Morbid (severe) obesity due to excess calories (ICD-10 - E66.01) 10/10/2023 Chronic fatigue, unspecified (ICD-10 - R53.82) 10/18/2023 Morbid (severe) obesity due to excess calories (ICD-10 - E66.01) 10/18/2023 Chronic fatigue, unspecified (ICD-10 - R53.82) 10/26/2023 Morbid (severe) obesity due to excess calories (ICD-10 - E66.01) 10/26/2023 Chronic fatigue, unspecified (ICD-10 - R53.82) 11/01/2023 Morbid (severe) obesity due to excess calories (ICD-10 - E66.01) 11/01/2023 Chronic fatigue, unspecified (ICD-10 - R53.82) 11/08/2023 Morbid (severe) obesity due to excess calories (ICD-10 - E66.01) 11/08/2023 Chronic fatigue, unspecified (ICD-10 - R53.82) 11/15/2023 Morbid (severe) obesity due to excess calories (ICD-10 - E66.01) 11/15/2023 Chronic fatigue, unspecified (ICD-10 - R53.82) 11/22/2023 Morbid (severe) obesity due to excess calories (ICD-10 - E66.01) 11/22/2023 Chronic fatigue, unspecified (ICD-10 - R53.82) 11/29/2023 Morbid (severe) obesity due to excess calories (ICD-10 - E66.01) 11/29/2023 Chronic fatigue, unspecified (ICD-10 - R53.82) 12/06/2023 Morbid (severe) obesity due to excess calories (ICD-10 - E66.01) 12/06/2023 Chronic fatigue, unspecified (ICD-10 - R53.82) 12/13/2023 Morbid (severe) obesity due to excess calories (ICD-10 - E66.01) 12/13/2023 Chronic fatigue, unspecified (ICD-10 - R53.82) 12/20/2023 Morbid (severe) obesity due to excess calories (ICD-10 - E66.01) 12/20/2023 Chronic fatigue, unspecified (ICD-10 - R53.82) 12/27/2023 Morbid (severe) obesity due to excess calories (ICD-10 - E66.01) 12/27/2023 Chronic fatigue, unspecified (ICD-10 - R53.82) 01/03/2024 Morbid (severe) obesity due to excess calories (ICD-10 - E66.01) 01/03/2024 Chronic fatigue, unspecified (ICD-10 - R53.82) 01/10/2024 Morbid (severe) obesity due to excess calories (ICD-10 - E66.01) 01/10/2024 Chronic fatigue, unspecified (ICD-10 - R53.82) 01/17/2024 Morbid (severe) obesity due to excess calories (ICD-10 - E66.01) 01/17/2024 Chronic fatigue, unspecified (ICD-10 - R53.82) 01/24/2024 Morbid (severe) obesity due to excess calories (ICD-10 - E66.01) 01/24/2024 Chronic fatigue, unspecified (ICD-10 - R53.82) 01/31/2024 Morbid (severe) obesity due to excess calories (ICD-10 - E66.01) 01/31/2024 Chronic fatigue, unspecified (ICD-10 - R53.82) 02/06/2024 Morbid (severe) obesity due to excess calories (ICD-10 - E66.01) 02/06/2024 Chronic fatigue, unspecified (ICD-10 - R53.82) 02/16/2024 Morbid (severe) obesity due to excess calories (ICD-10 - E66.01) 02/16/2024 Chronic fatigue, unspecified (ICD-10 - R53.82) 02/22/2024 Morbid (severe) obesity due to excess calories (ICD-10 - E66.01) 02/22/2024 Chronic fatigue, unspecified (ICD-10 - R53.82) 02/22/2024 Morbid (severe) obesity due to excess calories (ICD-10 - E66.01) 02/22/2024 Chronic fatigue, unspecified (ICD-10 - R53.82) 02/28/2024 Morbid (severe) obesity due to excess calories (ICD-10 - E66.01) 02/28/2024 Chronic fatigue, unspecified (ICD-10 - R53.82) 03/06/2024 Sleep apnea, unspecified (ICD-10 - G47.30) Rylie continues to use her CPAP, her compliancy report shows > 80% compliancy 03/06/2024 Obstructive sleep apnea (adult) (pediatric) (ICD-10 - G47.33) 03/06/2024 Morbid (severe) obesity due to excess calories (ICD-10 - E66.01) 03/06/2024 Chronic fatigue, unspecified (ICD-10 - R53.82) 03/13/2024 Morbid (severe) obesity due to excess calories (ICD-10 - E66.01) 03/13/2024 Chronic fatigue, unspecified (ICD-10 - R53.82) 03/20/2024 Morbid (severe) obesity due to excess calories (ICD-10 - E66.01) 03/20/2024 Chronic fatigue, unspecified (ICD-10 - R53.82) 03/27/2024 Morbid (severe) obesity due to excess calories (ICD-10 - E66.01) 03/27/2024 Chronic fatigue, unspecified (ICD-10 - R53.82) 03/27/2024 Other fatigue (ICD-10 - R53.83) 03/20/2024 Other fatigue (ICD-10 - R53.83) 03/13/2024 Other fatigue (ICD-10 - R53.83) 03/06/2024 Other fatigue (ICD-10 - R53.83) 03/06/2024 Chronic fatigue, unspecified (ICD-10 - R53.82) 02/28/2024 Other fatigue (ICD-10 - R53.83) 02/22/2024 Other fatigue (ICD-10 - R53.83) 02/22/2024 Other fatigue (ICD-10 - R53.83) 02/16/2024 Other fatigue (ICD-10 - R53.83) 02/06/2024 Other fatigue (ICD-10 - R53.83) 01/31/2024 Other fatigue (ICD-10 - R53.83) 01/24/2024 Other fatigue (ICD-10 - R53.83) 01/17/2024 Other fatigue (ICD-10 - R53.83) 01/10/2024 Other fatigue (ICD-10 - R53.83) 01/03/2024 Other fatigue (ICD-10 - R53.83) 12/27/2023 Other fatigue (ICD-10 - R53.83) 12/20/2023 Other fatigue (ICD-10 - R53.83) 12/13/2023 Other fatigue (ICD-10 - R53.83) 12/06/2023 Other fatigue (ICD-10 - R53.83) 11/29/2023 Other fatigue (ICD-10 - R53.83) 11/22/2023 Other fatigue (ICD-10 - R53.83) 11/15/2023 Other fatigue (ICD-10 - R53.83) 11/08/2023 Other fatigue (ICD-10 - R53.83) 11/01/2023 Other fatigue (ICD-10 - R53.83) 10/26/2023 Other fatigue (ICD-10 - R53.83) 10/18/2023 Other fatigue (ICD-10 - R53.83) 10/10/2023 Other fatigue (ICD-10 - R53.83) 10/03/2023 Other fatigue (ICD-10 - R53.83) 09/26/2023 Other fatigue (ICD-10 - R53.83) 09/26/2023 Snoring (ICD-10 - R06.83) 09/19/2023 Other fatigue (ICD-10 - R53.83) 09/12/2023 Other fatigue (ICD-10 - R53.83) 09/05/2023 Other fatigue (ICD-10 - R53.83) 08/29/2023 Other fatigue (ICD-10 - R53.83) 08/22/2023 Other fatigue (ICD-10 - R53.83) 08/10/2023 Other fatigue (ICD-10 - R53.83) 08/01/2023 Other fatigue (ICD-10 - R53.83) 07/25/2023 Other fatigue (ICD-10 - R53.83) 07/18/2023 Other fatigue (ICD-10 - R53.83) 07/12/2023 Other fatigue (ICD-10 - R53.83) 07/04/2023 Other fatigue (ICD-10 - R53.83) 06/27/2023 Other fatigue (ICD-10 - R53.83) 06/20/2023 Other fatigue (ICD-10 - R53.83) 06/13/2023 Other fatigue (ICD-10 - R53.83) 06/06/2023 Other fatigue (ICD-10 - R53.83) 05/30/2023 Other fatigue (ICD-10 - R53.83) 05/25/2023 Other fatigue (ICD-10 - R53.83) 05/16/2023 Other fatigue (ICD-10 - R53.83) 05/11/2023 Other fatigue (ICD-10 - R53.83) 05/02/2023 Other fatigue (ICD-10 - R53.83) 04/25/2023 Other fatigue (ICD-10 - R53.83) 04/18/2023 Other fatigue (ICD-10 - R53.83) 04/11/2023 Other fatigue (ICD-10 - R53.83) 04/05/2023 Snoring (ICD-10 - R06.83) 04/04/2023 Other fatigue (ICD-10 - R53.83) 04/04/2023 Other malaise (ICD-10 - R53.81) 04/11/2023 Other malaise (ICD-10 - R53.81) 04/05/2023 Hypersomnia, unspecified (ICD-10 - G47.10) 04/18/2023 Other malaise (ICD-10 - R53.81) 04/25/2023 Other malaise (ICD-10 - R53.81) 05/02/2023 Other malaise (ICD-10 - R53.81) 05/11/2023 Other malaise (ICD-10 - R53.81) 05/16/2023 Other malaise (ICD-10 - R53.81) 05/25/2023 Other malaise (ICD-10 - R53.81) 05/30/2023 Other malaise (ICD-10 - R53.81) 06/06/2023 Other malaise (ICD-10 - R53.81) 06/13/2023 Other malaise (ICD-10 - R53.81) 06/20/2023 Other malaise (ICD-10 - R53.81) 06/27/2023 Other malaise (ICD-10 - R53.81) 07/04/2023 Other malaise (ICD-10 - R53.81) 07/12/2023 Other malaise (ICD-10 - R53.81) 07/18/2023 Other malaise (ICD-10 - R53.81) 07/25/2023 Other malaise (ICD-10 - R53.81) 08/01/2023 Other malaise (ICD-10 - R53.81) 08/10/2023 Other malaise (ICD-10 - R53.81) 08/22/2023 Other malaise (ICD-10 - R53.81) 08/29/2023 Other malaise (ICD-10 - R53.81) 09/05/2023 Other malaise (ICD-10 - R53.81) 09/12/2023 Other malaise (ICD-10 - R53.81) 09/19/2023 Other malaise (ICD-10 - R53.81) 09/26/2023 Other malaise (ICD-10 - R53.81) 09/26/2023 Hypersomnia, unspecified (ICD-10 - G47.10) 10/03/2023 Other malaise (ICD-10 - R53.81) 10/10/2023 Other malaise (ICD-10 - R53.81) 10/18/2023 Other malaise (ICD-10 - R53.81) 10/26/2023 Other malaise (ICD-10 - R53.81) 11/01/2023 Other malaise (ICD-10 - R53.81) 11/08/2023 Other malaise (ICD-10 - R53.81) 11/15/2023 Other malaise (ICD-10 - R53.81) 11/22/2023 Other malaise (ICD-10 - R53.81) 11/29/2023 Other malaise (ICD-10 - R53.81) 12/06/2023 Other malaise (ICD-10 - R53.81) 12/13/2023 Other malaise (ICD-10 - R53.81) 12/20/2023 Other malaise (ICD-10 - R53.81) 12/27/2023 Other malaise (ICD-10 - R53.81) 01/03/2024 Other malaise (ICD-10 - R53.81) 01/10/2024 Other malaise (ICD-10 - R53.81) 01/17/2024 Other malaise (ICD-10 - R53.81) 01/24/2024 Other malaise (ICD-10 - R53.81) 01/31/2024 Other malaise (ICD-10 - R53.81) 02/06/2024 Other malaise (ICD-10 - R53.81) 02/16/2024 Other malaise (ICD-10 - R53.81) 02/22/2024 Other malaise (ICD-10 - R53.81) 02/22/2024 Other malaise (ICD-10 - R53.81) 02/28/2024 Other malaise (ICD-10 - R53.81) 03/06/2024 Other fatigue (ICD-10 - R53.83) 03/06/2024 Other malaise (ICD-10 - R53.81) 03/13/2024 Other malaise (ICD-10 - R53.81) 03/20/2024 Other malaise (ICD-10 - R53.81) 03/27/2024 Other malaise (ICD-10 - R53.81) 03/06/2024 Snoring (ICD-10 - R06.83) 09/26/2023 Other sleep disorders (ICD-10 - G47.8) 04/05/2023 Other sleep disorders (ICD-10 - G47.8) 04/05/2023 Obesity, unspecified (ICD-10 - E66.9) 09/26/2023 Obesity, unspecified (ICD-10 - E66.9) Plan Of Treatment Pending Test Test Name Order Date Sleep Study WatchPAT 300 (Zoll-Heriberto) 0 04/05/2023 Sleep Study WatchPAT 300 (Zoll-Heriberto) 0 09/26/2023 Next Appt Details Provider Name:Ishaan Gambino , 04/03/2024 10:30:00 AM, [address], [place], [address], Provider Name:Ishaan Masters Immanuel , 04/10/2024 09:00:00 AM, [address], [place], [address], Insurance Providers Payer Name Payer Address Payer Phone Subscriber Number Group Number Insured Name Patient Relationship to Insured Coverage Start Date Coverage End Date [facility] [employer] [address] [address] [place] [address] [id number] Denice Azevedo Self - patient is the insured 5
--- OUTSIDE RECORDS SUMMARY | 2024-04-03 08:33 | XMS_ITS | Referral Summary ---
Author Organization [facility] Address [address] [place] [address] Care Team Providers Care Office Service Coordinator Name Role Phone Taz Polk DO Primary Care Provider [phone]- [phone] Allergies No known active allergies Medications nitroglycerin [...] Noted Date Diagnosed Date Angina pectoris, unstable ([facility]/HCC) 10/06/2022 Intervertebral disc disorder with radiculopathy of lumbar region 10/02/2020 Family history of diabetes mellitus 03/23/2020 Elevated blood sugar 03/23/2020 Assessment & Plan (03/23/2020 8:52 PM HAND SCREEN PRINTER): Labs. Continue low-carb (<150 g/day), low-glycemic diet. [...] phone. Assessment & Plan (03/18/2022 10:12 PM HAND SCREEN PRINTER): Reviewed calorie restriction based on BMR as [...] phone. Assessment & Plan (03/23/2020 8:52 PM HAND SCREEN PRINTER): Reviewed calorie restriction based on BMR as previously detailed. Reviewed recommendation/goal of >/= 150 minutes/week moderate-intensity aerobic exercise. Asked to keep detailed food diary for at least 1 week and bring to next visit and/or continue tracking on phone. Assessment & Plan (02/12/2020 8:32 AM HAND SCREEN PRINTER): Discussed that significant health benefits/risk reduction may [...] diet. Assessment & Plan (03/18/2022 10:13 PM HAND SCREEN PRINTER): Continue low-carb (<150 g/day), low-glycemic diet. Discussed [...] diet. Assessment & Plan (02/12/2020 9:07 AM HAND SCREEN PRINTER): Reviewed recent labs. Discussed increased risk for DM in setting of obesity and FHx DM. Labs. Discussed insulin resistance including effect on weight and risk for progression to diabetes. Recommended low-carb, low-glycemic diet; choose whole grains and avoid more highly processed carbohydrates. Discussed potential benefits of this w/r/t gut microbiome. Referred to ADA and [facility] websites for additional information on topics including glycemic index/carbohydrate choices, protein sources. JASSI-inhibitor cough 04/20/2019 Assessment & Plan (04/20/2019 11:38 AM HAND SCREEN PRINTER): I will stop her lisinopril and start irbesartan 300 mg. Palpitations 04/20/2019 Assessment & Plan (04/20/2019 11:38 AM HAND SCREEN PRINTER): She reports brief sporadic palpitations. At this [...] Other: Assessment & Plan (03/18/2022 10:11 PM HAND SCREEN PRINTER): Obesity is unchanged. Diet interventions: as noted. [...] unchanged. Behavioral treatment: recommended counseling and suggested [place] BMI. Diet interventions: as noted. Regular aerobic exercise program discussed. Pharmacotherapy as ordered. Discussed options and will start topiramate. Discussed risks, benefits, alternatives, potential side effects. Patient made aware that use of this medication for weight loss is off label. Assessment & Plan (03/23/2020 8:53 PM HAND SCREEN PRINTER): Obesity is unchanged. Diet interventions: as noted. Regular aerobic exercise program discussed. Assessment & Plan (03/30/2019 9:05 AM HAND SCREEN PRINTER): Recommend lifestyle modifications including physical activity and dietary modification Chronic fatigue 03/30/2019 Assessment & Plan (02/12/2020 9:04 AM HAND SCREEN PRINTER): Labs. Discussed importance of adequate sleep; good sleep hygiene in controlling weight as well as for overall health. Assessment & Plan (04/20/2019 11:42 AM HAND SCREEN PRINTER): She does have signs and symptoms compatible with sleep apnea. She will make an appointment for sleep study. Assessment & Plan (03/30/2019 9:21 AM HAND SCREEN PRINTER): She has some signs and symptoms compatible [...] LAD Assessment & Plan (12/22/2023 9:35 AM HAND SCREEN PRINTER): Coronary artery disease s/p PCI to mid [...] mg. Assessment & Plan (04/17/2021 8:34 AM HAND SCREEN PRINTER): She is 2 years post PCI. Will [...] Imdur. Assessment & Plan (04/18/2020 10:26 AM HAND SCREEN PRINTER): The patient has had a PCI to [...] requirement. Assessment & Plan (04/20/2019 11:36 AM HAND SCREEN PRINTER): She has had a couple of episodes [...] rehab. Assessment & Plan (03/30/2019 9:04 AM HAND SCREEN PRINTER): She has symptoms consistent with stable angina [...] will try to obtain the films from [facility] and review it. Depending on the findings, we might recommend repeat cardiac catheterization and/or revascularization. Before the review, we will continue her current regimen. - continue aspirin 81 mg daily, amlodipine 5 mg daily, atorvastatin 40 mg daily, lisinopril 20 mg daily, nitroglycerin p.r.n.. - will try to obtain and review films from [facility]. - depending on how the film looks, we may recommend repeat cardiac catheterization/revascularization next week Hypercholesteremia 03/13/2019 Assessment & Plan (05/07/2022 9:20 AM CDT): Lipid panel showing that LDL is at goal. Will make no changes to her current medical therapy the patient will continue take Lipitor 80 mg q.h.s. Will repeat lipid panel Assessment & Plan (04/18/2020 9:50 AM HAND SCREEN PRINTER): Her lipids are fairly well controlled few months ago. Will continue to Assessment & Plan (04/20/2019 11:38 AM HAND SCREEN PRINTER): She is on high-intensity statin. She has good control in this. I will make no changes to this. Assessment & Plan (03/30/2019 9:05 AM HAND SCREEN PRINTER): Most recent LDL cholesterol 51 in 01/2019. This is under control. Will continue current management. - continue atorvastatin 40 mg daily Visit for wound check 2019 Abnormal stress test 11/29/2018 Chest tightness 11/29/2018 Essential hypertension 11/29/2018 Assessment & Plan (12/22/2023 9:36 AM HAND SCREEN PRINTER): Well controlled. Continue amlodipine 10 mg daily and irbesartan 300 mg daily. BMP and CBC today. Assessment & Plan (05/07/2022 9:19 AM CDT): Her blood pressure is also at goal will continue with current regimen of amlodipine with irbesartan. Assessment & Plan (04/17/2021 8:34 AM HAND SCREEN PRINTER): Blood pressure well controlled. Will recheck BMP as she is on a diuretic. Assessment & Plan (10/31/2020 10:52 AM CDT): Her blood pressure is well controlled. We will make no changes to her regimen today. Continue amlodipine, irbesartan, furosemide. We will check a CMP. Assessment & Plan (04/18/2020 9:45 AM HAND SCREEN PRINTER): Her blood pressure is currently well controlled right now. We will continue amlodipine, irbesartan, and Imdur. Her labs from February of this year are stable with her creatinine and electrolytes within normal range. Assessment & Plan (02/12/2020 9:05 AM HAND SCREEN PRINTER): Reviewed role of diet, exercise, weight loss in controlling blood pressure. Recommended low sodium/DASH diet. Continue current medications. Appropriately on JASSI-I/ARB. Assessment & Plan (11/09/2019 10:18 AM CDT): Her BP is well controlled on her current regimen of amlodipine and irbesartan. Assessment & Plan (04/20/2019 11:37 AM HAND SCREEN PRINTER): She reports that her blood pressure has been elevated on a few occasions. I will stop her lisinopril as she has an JASSI-inhibitor cough. I will start irbesartan 300 mg a day. After to monitor blood pressure at home. I will increase her amlodipine to 10 mg if her blood pressure remains suboptimally controlled. Assessment & Plan (03/30/2019 9:05 AM HAND SCREEN PRINTER): Blood pressure is under reasonable control this visit. Will continue current management. Her heart rate is rather low to tolerate beta akash. - continue amlodipine 5 mg daily, lisinopril 20 mg daily - recommend keeping a blood pressure log. Family history of premature coronary artery dise ase 11/29/2018 Assessment & Plan (03/30/2019 9:05 AM HAND SCREEN PRINTER): See assessment and plan above for coronary artery disease Hyperlipidemia Assessment & Plan (12/22/2023 9:37 AM HAND SCREEN PRINTER): LDL at goal on labs from 04/2023. Continue Atorvastatin 80 mg daily. Assessment & Plan (04/17/2021 8:34 AM HAND SCREEN PRINTER): Her cholesterol is well controlled on her lipid panel 6 months ago. Will repeat this next year. Assessment & Plan (10/31/2020 10:52 AM CDT): Her LDL was suppressed 1 year ago on atorvastatin 80 mg daily. We will recheck a lipid panel and CMP today for adherence and therapeutic effect. Assessment & Plan (02/12/2020 9:09 AM HAND SCREEN PRINTER): Reviewed recent lipid panel -- LDL in [...] ordered. Assessment & Plan (04/18/2020 9:47 AM HAND SCREEN PRINTER): The patient is following with Dr. Snyder about behavioral, dietary and exercise based interventions for her obesity. We discussed that she does not have any limitations from a cardiovascular perspective and should exercise/continue activities that she enjoys. Assessment & Plan (02/12/2020 9:05 AM HAND SCREEN PRINTER): Obesity is worsening. General weight loss/lifestyle modification [...] weight. We will refer her to the [facility] nonsurgical weight management program. Immunizations Immunization Administration Dates Next Due Influenza, Unspecified 12/11/2018 Social History Tobacco Use Types Packs/Day Years [...] AM CDT Sexual Orientation Not on file Last Filed Vital Signs Vital Sign Reading Time Taken Comments Blood Pressure 118/70 12/22/2023 8:52 AM HAND SCREEN PRINTER Pulse 55 12/22/2023 8:52 AM HAND SCREEN PRINTER Temperature 36.1 C (96.9 F) 10/26/2022 10:02 AM CDT Respiratory Rate 18 10/26/2022 10:02 AM CDT Oxygen Saturation 98% 12/22/2023 8:52 AM HAND SCREEN PRINTER Inhaled Oxygen Concentration - - Weight 80.3 kg (177 lb) 12/22/2023 8:52 AM HAND SCREEN PRINTER Height 165.1 cm (5' 5 ) 12/22/2023 8:52 AM HAND SCREEN PRINTER Body Mass Index 29.45 12/22/2023 8:52 AM HAND SCREEN PRINTER Plan of Treatment Not on file Medical Devices Implanted Type Area Records Management Engineer Device Identifier Shelf Expiration Date Model / Serial / Lot [employer] Medical [place] Angio-Seal Vip 6fr Closere Device [id number] - [id number] - [id number] Implanted:Qty : 1 on 06/07/2022 by Lonnie Ahmadi MD at [facility] Collagen Right: Femoral Terumo Medical [place] 12/14/2022 [id number] / [id number] / [id number] Medtronic Usa [employer] X [id number] Resolute Dwaine 2.5mm 2.1-2.7fr 22mm 140cm Rapid Exchange - [id number] Implanted:Qty : 1 on 04/12/2019 by Lonnie Ahmadi MD at [facility] Stent N/A: Coronary Medtronic Inc 08/11/2019 [id number] / / [id number] Medtronic Card Vasc Surgery 2.00 X 18mm Dwaine [place] Rx Coronary Stent [id number] - [id number] - [id number] Implanted:Qty : 1 on 06/07/2022 by Lonnie Ahmadi MD at [facility] Stent Left: Diagnonal Coronary Artery Medtronic Card Vasc Surgery 03/05/2023 [id number] / [id number] / [id number] [employer] [place] [id number] Angio-Seal Evolution 8fr .038in Guidewire Bypass Tube Suture - [id number] - [id number] Implanted:Qty : 1 on 04/12/2019 by Lonnie Ahmadi MD at [facility] N/A: Arterial [employer] [place] 12/15/2019 [id number] / [id number] / [id number] Insurance MEDICARE SOLUTIONS MEDICARE [facility] [place] [address] MEDICARE [facility] BL CHOICE PRF PPO [place] MEDICARE [facility] [place] [id number] Advance Directives For more information, please contact: [phone] * Full Code (Latest Code Status on File) Date Activated Date Inactivated Comments 06/07/2022 2:33 PM 06/07/2022 10:06 PM * Full Code Date Activated Date Inactivated Comments 04/12/2019 11:11 AM 04/12/2019 6:52 PM Care Teams Office Service Coordinator Relationship Specialty Start Date End Date Taz Polk, PCP - General Internal Medicine 11/18/17
--- OUTSIDE RECORDS SUMMARY | 2024-04-03 08:33 | XMS_ITS | Encounter Summary ---
Author Organization [facility] Address [address] [place] [address] Phone Care Team Providers Care Bass Singer Name Role Phone Taz Polk DO Primary Care Provider [phone]- [phone] Encounter Details Date Type Department Care Team (Latest Contact Info) Description 02/20/2020 Orders Only DONIS WGT Scanning, Provider Social [...] Date/Time Associated Diagnosis Comments SCAN - LABS 02/20/2020 documented in this encounter Results * SCAN - LABS (02/20/2020) us Provider Scanning Final Result documented in [...] documented as of this encounter Care Teams Bass Singer Relationship Specialty Start Date End Date Taz Polk DO PCP - General Internal Medicine 11/18/17 documented as of this encounter
--- OUTSIDE RECORDS SUMMARY | 2024-04-03 08:33 | XMS_ITS | Clinical Summary ---
Author Organization [facility] Address [address] [place] [address] Care Team Providers Care Drop Machine Operator Name Role Phone Taz Polk DO Primary Care Provider [phone] Source Comments [facility],non-owned Affiliates and Associated Physician Practices is amultiple site organization consisting of ambulatory clinics and hospital sitesin [place], [place], [place] and [place]. This disclosure is being madepursuant to the Care Everywhere program and may not contain all information available regarding this patient. Last updated 17.[facility] nScaled Allergies No known active allergies Medications * [...] Comments Blood Pressure 132/82 01/18/2018 2:42 PM ELECTRIC MOTOR TESTER ASSEMBLER Pulse 92 01/18/2018 2:42 PM ELECTRIC MOTOR TESTER ASSEMBLER Temperature 36.9 C (98.4 F) 01/18/2018 2:42 PM ELECTRIC MOTOR TESTER ASSEMBLER Respiratory Rate - - Oxygen Saturation 96% 01/18/2018 2:42 PM ELECTRIC MOTOR TESTER ASSEMBLER Inhaled Oxygen Concentration - - Weight 83.9 kg (185 lb) 01/18/2018 2:42 PM ELECTRIC MOTOR TESTER ASSEMBLER Height 166.4 cm (5' 5.5 ) 01/18/2018 2:42 PM ELECTRIC MOTOR TESTER ASSEMBLER Body Mass Index 30.32 01/18/2018 2:42 PM ELECTRIC MOTOR TESTER ASSEMBLER Plan of Treatment Health Maintenance Due Date Last Done Comments BONE DENSITY TESTING 1955 COLOGUARD (AGES 45-75) - COL ON CA SCREENING 1955 COLON MONITORING 1955 COLONOSCOPY - COLON CA SCREENING 1955 CT COLONOGRAPHY - COLON CA SCREENING 1955 Colorectal Cancer Screening 1955 FIT - COLON CA SCREENING 1955 FLEX SIG - COLON CA SCREENING 1955 LIPID TESTING 1955 MAMMOGRAM 1955 MEDICARE AWV 12 MONTHS 1955 HEPATITIS C SCREENING 02/01/1971 DTAP/TDAP/TD VACCINES (1 - Tdap) 02/06/1972 PNEUMOCOCCAL VACCINE 50+ (1 of 1 - PCV) 2003 ZOSTER VACCINE (1 of 2) 2003 COVID-19 VACCINE ( - 2023-2 5 season) 2023 INFLUENZA VACCINE (#1) 2023 0, 12/11/2018, 12/04/2017 DEPRESSION SCREENING 02/15/2024 Respiratory Syncytial Virus (RSV) Vaccine Pt: or over 60 yrs (1 - 1-dose 75+ series) 02/06/2028 HEPATITIS B VACCINE Aged Out No longe r eligible based on patient's age to complete this topic HIB VACCINE Aged Out No longer eligi ble based on patient's age to complete this topic HPV VACCINE Aged Out No longer eligi ble based on patient's age to complete this topic MENINGOCOCCAL (Group B) VACCINE Aged Out No longer eligible b ased on patient's age to complete this topic MENINGOCOCCAL VACCINE Aged Out No leatha jie eligible based on patient's age to complete this topic Care Teams Drop Machine Operator Relationship Specialty Start Date End Date Taz Polk DO PCP - General 01/18/18
== END 2024-04-03 08:28 | disposition home or self-care (01) ==
PROVIDERS: PCP Internal Medicine; Visit Provider Obstetrics & Gynecology
DX: Z12.31 Encounter for screening mammogram for malignant neoplasm of breast (principal)
CPT/HCPCS: 77063; 77067

== ENCOUNTER 2024-05-31 07:41 | Outpatient (CLI) | payer MEDICARE, SELFPAY ==
--- NOTE | ~2024-05-31 | DEXA_ITS ---
Bone Density Report Name: BARTOLO TRAN Age: 69 Sex: Female Ethnicity: White Date of : 1955 Indication: postmenopausal; screening for osteoporosis; height loss; Referring Provider: ABAD VASQUEZ Study: Bone densitometry was performed. Exam Date: May 31, 2024 Accession number: [id number] Bone Density: Region BMD T-score Z-score Classification AP Spine(L1-L4) 1.206 1.4 3.6 Normal Femoral Neck (Left) 0.738 -1.0 0.9 Normal Total Hip (Left) 0.818 -1.0 0.6 Normal Femoral Neck (Right) 0.768 -0.7 1.1 Normal Total Hip (Right) 0.850 -0.8 0.8 Normal Total Hip Mean 0.834 -0.9 0.7 Normal World Health Organization criteria for BMD impression classify patients as: Normal (T-score at or above -1.0), Osteopenia (T-score between -1.0 and -2.5), or Osteoporosis (T-score at or below -2.5). 10-year Fracture Risk: FRAX not reported because: All T-scores for Spine Total, Hip Total, Femoral Neck at or above -1.0 Previous Exams: Region Exam Age BMD T-score BMD Change BMD Change Date g/cm2 vs Baseline vs Previous AP Spine (L1-L4) 05/31/2024 69 1.206 1.4 0.106 (9.6%)* 0.031 (2.6%)* 10/20/2018 63 1.175 1.2 0.075 (6.8%)* 0.075 (6.8%)* 08/05/2016 61 1.100 0.5 Total Hip(Left) 05/31/2024 69 0.818 -1.0 -0.130 (-13.7% -0.115 (-12.4% 10/20/2018 63 0.934 -0.1 -0.014 (-1.5%) -0.014 (-1.5%) 08/05/2016 61 0.948 0.0 Total Hip(Right) 05/31/2024 69 0.850 -0.8 -0.116 (-12.0% -0.103 (-10.8% 10/20/2018 63 0.953 0.1 -0.013 (-1.3%) -0.013 (-1.3%) 08/05/2016 61 0.966 0.2 *Denotes significance at 95% confidence level, LSC for AP Spine = 0.022 g/cm2, LSC for Total Hip = 0.027 g/cm2 Clinical Information Provided by Patient: Patient maximum height was 66 Menopause Age: 49 Drinks caffeinated beverages Onset of menses at age 10 Number of children 3 Impression: The patient has normal bone mass. The BMD for the Total Hip(Left) decreased, changing by -12.4% since the last DXA exam. The BMD for the Total Hip(Right) decreased, changing by -10.8% since the last DXA exam. Discussion: BONE DENSITY IS ABOVE THE MINIMUM DESIRABLE LEVEL AT ALL SKELETAL SITES TESTED. This patient?s bone mineral density is above the minimum desirable level (T-score -1.0 or better) at all sites measured. The patient should follow a healthful lifestyle (good nutrition with adequate calcium and vitamin D, and appropriate weight-bearing exercise). Follow-Up: Consider repeating this study in 3 to 4 years to reassess this patient's status, or sooner if there is some new clinical indication. Reported by: BEV on 05/31/2024 8:19:00 AM. Reviewed, dictated and finalized at location [facility]
--- OUTSIDE RECORDS SUMMARY | 2024-05-31 07:46 | XMS_ITS ---
Author Organization [facility] Address [address] [place] [address] Care Team Providers Care Auto Wheel Alignment Specialist Name Role Phone Taz Polk Primary Care Provider Unavailab Ishaan Alston [phone] REASON FOR VISIT [facility], on tirzepatide, appetite suppression is lasting 4-5 days, no side effects, no new concerns, Desired weight loss: 45 lbs, +1.0 lbs since last visit, -33.6 lbs total, No history MTC or MEN2 or pancreatitis, Concerned about future DM and OA Medications Medication SIG (Take, Route, Frequency, Duration) Notes Start Date End Date Status Irbesartan 300 MG 1 tab(s) orally once a day Active Atorvastatin Calcium 80 MG 1 tab(s) orally once a day Active Furosemide 20 MG 1 tab(s) orally once a day Active amLODIPine Besylate 5 MG 1 tab(s) orally once a day Active Aspirin 81 MG 1 tab(s) orally once a day Not-Taking Nitroglycerin 0.4 MG 1 tab(s) sublingual ly every 5 minutes Active Isosorbide Mononitrate ER 30 MG 1 tab(s) orally once a day (in the morning) Active Vital Signs Height 64.6 in 05/21/2024 Weight 171.8 lbs 05/21/2024 BMI 28.94 kg/m2 05/21/2024 Encounters Encounter Location Date Provider Diagnosis [facility] ([address]) [address] [place] [id number] 05/21/2024 Ishaan Gambino Morbid (severe) obesity due to excess calories E66.01 ; Chronic fatigue, unspecified R53.82 ; Other fatigue R53.83 and Other malaise R53.81 Assessments Encounter Date Diagnosis (ICD Code) Assessment Notes Treatment Notes Treatment Clinical Notes Section Notes 05/21/2024 Morbid (severe) obesity due to excess calories (ICD-10 - E66.01) 05/21/2024 Chronic fatigue, unspecified (ICD-10 - R53.82) 05/21/2024 Other fatigue (ICD-10 - R53.83) 05/21/2024 Other malaise (ICD-10 - R53.81) Plan Of Treatment Next Appt Details Follow Up: 1 Week, Reason: G LP-1 Agonist Administration Provider Name:Ishaan Gambino , 06/05/2024 09:00:00 AM, [address], [facility] [address], [place], [address], Provider Name:Ishaan Gambino , 06/12/2024 09:00:00 AM, [address], [address] [address], [place], [address], Procedure Notes * Category Sub-Category Detail Notes [facility] tirzepatide Indication: weig ht loss Concentration: 10 mg/mL Volume Administered: 0.5 mL Dose Administered: 5 mg Route: SQ Location: [facility] Frequency: weekly Lot Number/Expiration: Medication Source: Nutraceutical Comp ounding Adverse Reaction: None Progress Notes * TRANTyreseanceDOB:[birth year] (69 yo F)Acc No.[id number]:05/21/2024 Weight Loss Patient: Denice HUFFMAN Provider: Magi Gambino MD :1955 A ge:69 Y S ex:Female Date:05/21/2024 Address: [address], [facility] Pcp:Taz Polk Subjective: * Chief Complaints: * 1 . [facility], on tirzepatide, appetite suppression is lasting 4-5 days, no side effects, no new concerns. 2. Desired weight loss: 45 lbs, +1.0 lbs since last visit, -33.6 lbs total. 3. No history MTC or [...] * Vitals: H t: 64.6 in, Wt: 171.8 lbs, BMI:28.94Index. Assessment: * Assessment: 1. M orbid (severe) obesity due to excess calories - E66.01 (Primary) 2 . C hronic fatigue, unspecified - R53.82 3 . O ther fatigue - R53.83 ?4. O ther malaise - R53.81 Plan: * Treatment: * Procedures: [facility]: Weight Management: tirzepatide I ndication w eight loss C oncentration 1 0 mg/mL V olume Administered 0 .5 mL D ose Administered 5 mg R oute S Q L ocation R UA F requency w eekly L ot Number/Expiration 0 M edication Source A H Nutraceutical Compounding A dverse Reaction N one * Follow Up: 1 Week (Reason: GLP-1 Agonist Administration) * Billing Information: * Visit Code: * Procedure Codes: 07372 [facility] - Weekly (tirzepatide) (0.5-5 mg) Tier 1. * Electronic signature of Sudarshan Gambino MD, FAAAAI on 05/31/2024 at 07:46 AM CDT Sign off status: Pending * Provider: Magi Gambino MD Date: 0 05/21/2024 Generated for Printi ng/Amaya/eTransmitting on: 0 05/31/2024 07:46 AM CDT
--- OUTSIDE RECORDS SUMMARY | 2024-05-31 07:46 | XMS_ITS | Clinical Summary ---
Author Organization [facility] Address [address] [place] [address] Care Team Providers Care Personal Development Coach Name Role Phone Taz Polk DO Primary Care Provider [phone] Source Comments [facility],non-owned Affiliates and Associated Physician Practices is amultiple site organization consisting of ambulatory clinics and hospital sitesin [place], [place], [place] and [place]. This disclosure is being madepursuant to the Care Everywhere program and may not contain all information available regarding this patient. Last updated 17.[facility] Allergies No known active allergies Medications * Be aware that medications may not be up to date on this document. Alwaysverify current medications with the patient. lisinopril-hydro CHLOROthiazide (PRINZIDE; ZESTORETIC) 20-12.5 MG tablet TK 1 T PO QD 3 12/21/2017 Active Immunizations Immunization Administration Dates Next Due INFLUENZA VACCINE, HIGH-DOSE , QUADR. (FLUZONE HIGH-DOSE QUADRIVALENT; 65Y+), 0.7 ML (HD-IIV4) 11/16/2019 iNFLUENZA VACCINE, RECOM-HASSAN, QUADR. (FLUBLOCK QUADRIVALENT; 18Y+) (RIV4) 12/04/2017 Social History Tobacco Use Types Packs/Day Years Used Date Smoking Tobacco: Never Smokeless Tobacco: Never Comments No Sex and Gender Information Value Date Recorded Sex Assigned at Not on file Legal Sex Female 9:02 AM CDT Gender Identity Not on file Sexual Orientation Not on file Last Filed Vital Signs Vital Sign Reading Time Taken Comments Blood Pressure 132/82 01/18/2018 2:42 PM TRIAGE REGISTER NURSE Pulse 92 01/18/2018 2:42 PM TRIAGE REGISTER NURSE Temperature 36.9 C (98.4 F) 01/18/2018 2:42 PM TRIAGE REGISTER NURSE Respiratory Rate - - Oxygen Saturation 96% 01/18/2018 2:42 PM TRIAGE REGISTER NURSE Inhaled Oxygen Concentration - - Weight 83.9 kg (185 lb) 01/18/2018 2:42 PM TRIAGE REGISTER NURSE Height 166.4 cm (5' 5.5 ) 01/18/2018 2:42 PM TRIAGE REGISTER NURSE Body Mass Index 30.32 01/18/2018 2:42 PM TRIAGE REGISTER NURSE Plan of Treatment Health Maintenance Due Date [...] VACCINE (1 of 2) 2003 COVID-19 VACCINE (1 - 2023-2 5 season) 2023 DEPRESSION SCREENING 02/15/2024 INFLUENZA VACCINE (Season Ended) 2024 11/16/2019, 12/11/2018, 12/04/2017 Respiratory Syncytial Virus (RSV) Vaccine Pt: or [...] complete this topic MENINGOCOCCAL (Group B) VACCINE SHARED DECISION-MAKING Aged Out No longer eligible based on patient's age to complete this topic MENINGOCOCCAL GROUPS A/C/Y/W VACCINE Aged Out No longer eligible b ased on patient's age to complete this topic Insurance MEDICARE MEDICARE SUPPLEMENT PAYOR GENERIC [employer]THEM ANTH Care Teams Personal Development Coach Relationship Specialty Start Date End Date Taz Polk DO PCP - General 01/18/18
--- OUTSIDE RECORDS SUMMARY | 2024-05-31 07:46 | XMS_ITS | Clinical Summary ---
Author Organization [facility] Address [address] [place] [address] Care Team Providers Care Service Observer Name Role Phone Taz Polk DO Primary Care Provider [phone] Allergies No known active allergies Medications nitroglycerin (NITROSTAT) 0.[address] 1 tablet (0.4 mg total) under the tongue every 5 (five) minutes as needed for chest pain May repeat dose q 5 min, up to 3 doses total 25 tablet 6 3 Active clopidogreL (PLAVIX) 75 mg tablet TAKE 1 TABLET(75 MG) BY MOUTH DAILY 90 tablet 3 4 Active isosorbide mononitrate ER (IMDUR) 30 mg 24 hr tablet TAKE 1 TABLET(30 MG) BY MOUTH DAILY 90 tablet 3 4 Active isosorbide mononitrate ER (IMDUR) 60 mg 24 hr tablet Take 1 tablet (60 mg total) by mouth daily Take with Imdur 30 mg daily for a total of 90 mg daily. 90 tablet 3 4 Active atorvastatin (LIPITOR) 80 mg tablet TAKE 1 TABLET(80 MG) BY MOUTH DAILY 90 tablet 3 4 Active amLODIPine (NORVASC) 10 mg tablet TAKE 1 TABLET(10 MG) BY MOUTH EVERY NIGHT 90 tablet 3 4 Active furosemide (LASIX) 20 mg tablet TAKE 1 TABLET(20 MG) BY MOUTH DAILY 90 tablet 1 4 Active irbesartan (AVAPRO) 300 mg tablet TAKE 1 TABLET BY MOUTH EVERY NIGHT 90 tablet 5 Active irbesartan (AVAPRO) 300 mg tablet TAKE 1 TABLET BY MOUTH EVERY NIGHT 90 tablet 3 4 025 Discontinued Active Problems Problem Noted Date Diagnosed Date Angina pectoris, unstable 10/06/2022 Intervertebral disc disorder with radiculopathy of lumbar region 10/02/2020 Family history of diabetes mellitus 03/23/2020 Elevated blood sugar 03/23/2020 Assessment & Plan (03/23/2020 8:52 PM CLAM PICKER): Labs. Continue low-carb (<150 g/day), low-glycemic diet. [...] phone. Assessment & Plan (03/18/2022 10:12 PM CLAM PICKER): Reviewed calorie restriction based on BMR as previously detailed. Reviewed recommendation/goal of >/= 150 minutes/week moderate-intensity aerobic exercise. Asked to try to track consistently with Bvents It yahaira for at least 1 week [...] phone. Assessment & Plan (03/23/2020 8:52 PM CLAM PICKER): Reviewed calorie restriction based on BMR as previously detailed. Reviewed recommendation/goal of >/= 150 minutes/week moderate-intensity aerobic exercise. Asked to keep detailed food diary for at least 1 week and bring to next visit and/or continue tracking on phone. Assessment & Plan (02/12/2020 8:32 AM CLAM PICKER): Discussed that significant health benefits/risk reduction may [...] diet. Assessment & Plan (03/18/2022 10:13 PM CLAM PICKER): Continue low-carb (<150 g/day), low-glycemic diet. Discussed [...] diet. Assessment & Plan (02/12/2020 9:07 AM CLAM PICKER): Reviewed recent labs. Discussed increased risk for DM in setting of obesity and FHx DM. Labs. Discussed insulin resistance including effect on weight and risk for progression to diabetes. Recommended low-carb, low-glycemic diet; choose whole grains and avoid more highly processed carbohydrates. Discussed potential benefits of this w/r/t gut microbiome. Referred to ADA and [employer] websites for additional information on topics including glycemic index/carbohydrate choices, protein sources. JASSI-inhibitor cough 04/20/2019 Assessment & Plan (04/20/2019 11:38 AM CLAM PICKER): I will stop her lisinopril and start irbesartan 300 mg. Palpitations 04/20/2019 Assessment & Plan (04/20/2019 11:38 AM CLAM PICKER): She reports brief sporadic palpitations. At this [...] Other: Assessment & Plan (03/18/2022 10:11 PM CLAM PICKER): Obesity is unchanged. Diet interventions: as noted. [...] unchanged. Behavioral treatment: recommended counseling and suggested [place] BMI. Diet interventions: as noted. Regular aerobic exercise program discussed. Pharmacotherapy as ordered. Discussed options and will start topiramate. Discussed risks, benefits, alternatives, potential side effects. Patient made aware that use of this medication for weight loss is off label. Assessment & Plan (03/23/2020 8:53 PM CLAM PICKER): Obesity is unchanged. Diet interventions: as noted. Regular aerobic exercise program discussed. Assessment & Plan (03/30/2019 9:05 AM CLAM PICKER): Recommend lifestyle modifications including physical activity and dietary modification Chronic fatigue 03/30/2019 Assessment & Plan (02/12/2020 9:04 AM CLAM PICKER): Labs. Discussed importance of adequate sleep; good sleep hygiene in controlling weight as well as for overall health. Assessment & Plan (04/20/2019 11:42 AM CLAM PICKER): She does have signs and symptoms compatible with sleep apnea. She will make an appointment for sleep study. Assessment & Plan (03/30/2019 9:21 AM CLAM PICKER): She has some signs and symptoms compatible [...] LAD Assessment & Plan (12/22/2023 9:35 AM CLAM PICKER): Coronary artery disease s/p PCI to mid [...] mg. Assessment & Plan (04/17/2021 8:34 AM CLAM PICKER): She is 2 years post PCI. Will [...] Imdur. Assessment & Plan (04/18/2020 10:26 AM CLAM PICKER): The patient has had a PCI to [...] requirement. Assessment & Plan (04/20/2019 11:36 AM CLAM PICKER): She has had a couple of episodes [...] rehab. Assessment & Plan (03/30/2019 9:04 AM CLAM PICKER): She has symptoms consistent with stable angina [...] will try to obtain the films from [facility] and review it. Depending on the findings, we might recommend repeat cardiac catheterization and/or revascularization. Before the review, we will continue her current regimen. - continue aspirin 81 mg daily, amlodipine 5 mg daily, atorvastatin 40 mg daily, lisinopril 20 mg daily, nitroglycerin p.r.n.. - will try to obtain and review films from [facility]. - depending on how the film looks, we may recommend repeat cardiac catheterization/revascularization next week Hypercholesteremia 03/13/2019 Assessment & Plan (05/07/2022 9:20 AM CDT): Lipid panel showing that LDL is at goal. Will make no changes to her current medical therapy the patient will continue take Lipitor 80 mg q.h.s. Will repeat lipid panel Assessment & Plan (04/18/2020 9:50 AM CLAM PICKER): Her lipids are fairly well controlled few months ago. Will continue to Assessment & Plan (04/20/2019 11:38 AM CLAM PICKER): She is on high-intensity statin. She has good control in this. I will make no changes to this. Assessment & Plan (03/30/2019 9:05 AM CLAM PICKER): Most recent LDL cholesterol 51 in 01/2019. This is under control. Will continue current management. - continue atorvastatin 40 mg daily Visit for wound check 2019 Abnormal stress test 11/29/2018 Chest tightness 11/29/2018 Essential hypertension 11/29/2018 Assessment & Plan (12/22/2023 9:36 AM CLAM PICKER): Well controlled. Continue amlodipine 10 mg daily and irbesartan 300 mg daily. BMP and CBC today. Assessment & Plan (05/07/2022 9:19 AM CDT): Her blood pressure is also at goal will continue with current regimen of amlodipine with irbesartan. Assessment & Plan (04/17/2021 8:34 AM CLAM PICKER): Blood pressure well controlled. Will recheck BMP as she is on a diuretic. Assessment & Plan (10/31/2020 10:52 AM CDT): Her blood pressure is well controlled. We will make no changes to her regimen today. Continue amlodipine, irbesartan, furosemide. We will check a CMP. Assessment & Plan (04/18/2020 9:45 AM CLAM PICKER): Her blood pressure is currently well controlled right now. We will continue amlodipine, irbesartan, and Imdur. Her labs from February of this year are stable with her creatinine and electrolytes within normal range. Assessment & Plan (02/12/2020 9:05 AM CLAM PICKER): Reviewed role of diet, exercise, weight loss in controlling blood pressure. Recommended low sodium/DASH diet. Continue current medications. Appropriately on JASSI-I/ARB. Assessment & Plan (11/09/2019 10:18 AM CDT): Her BP is well controlled on her current regimen of amlodipine and irbesartan. Assessment & Plan (04/20/2019 11:37 AM CLAM PICKER): She reports that her blood pressure has been elevated on a few occasions. I will stop her lisinopril as she has an JASSI-inhibitor cough. I will start irbesartan 300 mg a day. After to monitor blood pressure at home. I will increase her amlodipine to 10 mg if her blood pressure remains suboptimally controlled. Assessment & Plan (03/30/2019 9:05 AM CLAM PICKER): Blood pressure is under reasonable control this visit. Will continue current management. Her heart rate is rather low to tolerate beta akash. - continue amlodipine 5 mg daily, lisinopril 20 mg daily - recommend keeping a blood pressure log. Family history of premature coronary artery dise ase 11/29/2018 Assessment & Plan (03/30/2019 9:05 AM CLAM PICKER): See assessment and plan above for coronary artery disease Hyperlipidemia Assessment & Plan (12/22/2023 9:37 AM CLAM PICKER): LDL at goal on labs from 04/2023. Continue Atorvastatin 80 mg daily. Assessment & Plan (04/17/2021 8:34 AM CLAM PICKER): Her cholesterol is well controlled on her lipid panel 6 months ago. Will repeat this next year. Assessment & Plan (10/31/2020 10:52 AM CDT): Her LDL was suppressed 1 year ago on atorvastatin 80 mg daily. We will recheck a lipid panel and CMP today for adherence and therapeutic effect. Assessment & Plan (02/12/2020 9:09 AM CLAM PICKER): Reviewed recent lipid panel -- LDL in [...] ordered. Assessment & Plan (04/18/2020 9:47 AM CLAM PICKER): The patient is following with Dr. Snyder about behavioral, dietary and exercise based interventions for her obesity. We discussed that she does not have any limitations from a cardiovascular perspective and should exercise/continue activities that she enjoys. Assessment & Plan (02/12/2020 9:05 AM CLAM PICKER): Obesity is worsening. General weight loss/lifestyle modification [...] weight. We will refer her to the [facility] nonsurgical weight management program. Encounters Date Type Department Care Team Description 05/29/2024 12:20 PM CDT Lab [facility] [address] [address] [id number] Coronary artery disease 05/29/2024 11:00 AM CDT Office Visit [facility] Cardiology [facility] Building [address] [place] [address] Parveen Garcia MD Coronary artery disease (Primary Dx) from Last 3 Months Immunizations Immunization Administration Dates Next Due Influenza, [...] CABG and redo CABG Father Jose Waldron duri ng 2nd CABG, age 45 Coronary artery disease Father Jose Velazquezew Diabetes Father Jose Velazquezew Hyperlipidemia Father Jose Waldron Hypertension Father Jose Waldron CABG and redo CABG Mother Melanie Waldron duri ng 2nd CABG, age 71. Cancer Mother Melanie Waldron Coronary artery disease Mother Melanie Waldron Hyperlipidemia Mother Melanie Waldron Hypertension Mother Melanie Waldron Relation Name Status Comments Daughter Father Jose Waldron (Age 45) Mother Melanie Waldron (Age 71) Social History Tobacco Use Types Packs/Day Years Used Date Smoking Tobacco: Never Passive Smoke Exposure: Never Smokeless Tobacco: Never Tobacco Cessation:Counseling Given: Not Answered Alcohol Use Standard Drinks/Week Comments Yes 0 [...] Sign Reading Time Taken Comments Blood Pressure 106/66 05/29/2024 11:16 AM CDT Pulse 63 05/29/2024 11:16 AM CDT Temperature 36.1 C (96.9 F) 10/26/2022 10:02 AM CDT Respiratory Rate 18 10/26/2022 10:0 2 AM CDT Oxygen Saturation 98% 05/29/2024 11: 16 AM CDT Inhaled Oxygen Concentration - - Weight 79.7 kg (175 lb 12.8 oz) 025 11:16 AM CDT Height 165.1 cm (5' 5 ) 05/29/2024 11:1 6 AM CDT Body Mass Index 29.25 05/29/2024 11:16 AM CDT Plan of Treatment Health Maintenance Due Date [...] 09/06/2021, 12/04/2020, Additional history exists Influenza Vaccine (Season Ended) 2024 11/29/2021, 11/29/2020, 11/16/2019, Additional history exists DTaP/Tdap/Td Vaccine (2 - Td or Tdap) 12/11/2028 12/11/2018 Zoster Vaccine Completed 10/27/2018, 08/23/2018 Medical Devices Implanted Type Area Numerical Tool Programmer Device Identifier Shelf Expiration Date Model / Serial / Lot TerumCydan Medical [place] Angio-Seal Vip 6fr Closere Device [id number] - [id number] - [id number] Implanted:Qty : 1 on 06/07/2022 by Lonnie Ahmadi MD at [facility] Collagen Right: Femoral Terumo [employer] [place] 12/14/2022 [id number] / [id number] / [id number] Medtronic [employer] X [id number] Resolute [place] 2.5mm 2.1-2.7fr 22mm 140cm Rapid Exchange - [id number] Implanted:Qty : 1 on 04/12/2019 by Lonnie Ahmadi MD at [facility] Stent N/A: Coronary Medtronic Inc 08/11/2019 [id number] / / [id number] Medtronic Card Vasc Surgery 2.00 X 18mm [place] Weldon Rx Coronary Stent [id number] - [id number] - [id number] Implanted:Qty : 1 on 06/07/2022 by Lonnie Ahmadi MD at [facility] Stent Left: Diagnonal Coronary Artery Medtronic Card Vasc Surgery 03/05/2023 [id number] / [id number] / [id number] Daig [place] [id number] Angio-Seal Evolution 8fr .038in Guidewire Bypass Tube Suture - [id number] - [id number] Implanted:Qty : 1 on 04/12/2019 by Lonnie Ahmadi MD at [facility] N/A: Arterial Daig [place] 12/15/2019 [id number] / [id number] / [id number] Procedures Procedure Name Priority Date/Time Associated Diagnosis Comments LIPID PANEL Routine 05/29/2024 12:22 PM CDT Coronary artery disease from Last 3 Months Results * Lipid panel (05/29/2024 12:22 PM CDT) Cholesterol 142 30 - 199 mg/dL Comment: Interpretive Data Ages < or = 19 years Acceptable: <170 mg/dL Borderline high: 170-199 mg/dL High: >or= 200 mg/dL Ages > or = 20 years Desirable: <200 mg/dL Borderline high: 200-239 mg/dL High: >or= 240 mg/dL Literature References: 1. Expert Panel on Integrated Guidelines for Cardiovascular Health and Risk Reduction in Children and Adolescents. Pediatrics 2011;128:S213 2. NCEP Expert Panel. Circulation 2004;110:227 Current Interpretive Data was last revised on 2017. Triglycerides 97 <=149 mg/dL [facility]STIAN STARKEY Comment: Interpretive Data Ages < or = 9 years Acceptable: <75 mg/dL Borderline high: 75-99 mg/dL High: >or= 100 mg/dL Ages 10 to 20 years Acceptable: <90 mg/dL Borderline high: 90-129 mg/dL High: >or= 130 mg/dL Ages > or = 20 years Desirable: <150 mg/dL Borderline high: 150-199 mg/dL High: 200-499 mg/dL Very high: >or= 499 mg/dL Literature References: 1. Expert Panel on Integrated Guidelines for Cardiovascular Health and Risk Reduction in Children and Adolescents. Pediatrics 2011;128:S213 2. NCEP Expert Panel. Circulation 2004;110:227 Current Interpretive Data was last revised on 2017. HDL 58 >=40 mg/dL CRISTIAN STARKEY Comment: Interpretive Data Ages < or = 19 years Acceptable: >45 mg/dL Borderline low: 40-45 mg/dL Low: <40 mg/dL Ages > or = 20 years Desirable: >or= 60 mg/dL Low: <40 mg/dL Literature References: 1. Expert Panel on Integrated Guidelines for Cardiovascular Health and Risk Reduction in Children and Adolescents. Pediatrics 2011;128:S213 2. NCEP Expert Panel. Circulation 2004;110:227 Current Interpretive Data was last revised on 2017. LDL, calculated 66 <=129 mg/dL CRISTIAN STARKEY Comment: Interpretive Data Ages < or = 19 years Acceptable: <110 mg/dL Borderline high: 110-129 mg/dL High: >or= 130 mg/dL Ages > or = 20 years Optimal: <100 mg/dL Near optimal: 100-129 mg/dL Borderline high: 130-159 mg/dL High: >160 mg/dL Calculated using the Wei LDL-C estimating equation. This equation was implemented on 2023. Prior to this date LDL-C was estimated using the Friedewald equation. Literature References: 1. Expert Panel on Integrated Guidelines for Cardiovascular Health and Risk Reduction in Children and Adolescents. Pediatrics 2011;128:S213 2. NCEP Expert Panel. Circulation 2004;110:227 3. Wei Peterson et al. ARLYN Cardiol. 2020 June 14;5(5):540-548. doi: 10.1001/jamacardio.2020.0013 Current Interpretive Data was last revised on 2023. Non-HDL Cholesterol 84 mg/dL CRISTIAN STARKEY Comment: Interpretive Data Ages < or = 19 years Acceptable: <120 mg/dL Borderline high: 120-144 mg/dL High: >145 mg/dL Ages > or = 20 years When triglycerides are >200 mg/dL, Non-HDL cholesterol is a secondary target of therapy with treatment goals that are 30 mg/dL greater than the LDL cholesterol target. Literature References: 1. Expert Panel on Integrated Guidelines for Cardiovascular Health and Risk Reduction in Children and Adolescents. Pediatrics 2011;128:S213 2. NCEP Expert Panel. Circulation 2004;110:227 Current Interpretive Data was last revised on 2017. Chol/HDL ratio 2 CRISTIAN STARKEY Blood 05/29/2024 12:2 2 PM CDT 05/29/2024 1:27 PM CDT Parveen Garcia MD LAB BLOOD ORDERABLES Final Result [facility] [id number] [facility] Department [place] [address] from Last 3 Months Insurance [facility] MED[facility] ADVANTAGE MEDICARE [facility] MEDICARE JORDAN KATELYNN GONG BL CHOICE PRF PPO [place] [facility] MEDICARE ADVANTAGE Advance Directives For more information, please contact: [phone] * Full Code (Latest Code Status on File) Date Activated Date Inactivated Comments 06/07/2022 2:33 PM 06/07/2022 10:06 PM * Full Code Date Activated Date Inactivated Comments 04/12/2019 11:11 AM 04/12/2019 6:52 PM Care Teams Service Observer Relationship Specialty Start Date End Date Taz Polk DO PCP - General Internal Medicine 11/18/17
--- OUTSIDE RECORDS SUMMARY | 2024-05-31 07:46 | XMS_ITS ---
Author Organization [facility] Address [address] [place] [address] Care Team Providers Care Division Chair Name Role Phone Taz Polk Primary Care Provider Unavailab Ishaan Alston [phone] REASON FOR VISIT [facility] Weight Loss, on tirzepatide, appetite suppression is lasting 4-5 days, no side effects, no new concerns, Desired weight loss: 45 lbs, +1.2 lbs since last visit, -32.4 lbs total, No history MTC or MEN2 or pancreatitis, Concerned about future DM and OA Medications Medication SIG (Take, Route, Frequency, Duration) Notes Start Date End Date Status amLODIPine Besylate 5 MG 1 tab(s) orally once a day Active Aspirin 81 MG 1 tab(s) orally once a day Not-Taking Isosorbide Mononitrate ER 30 MG 1 tab(s) orally once a day (in the morning) Active Nitroglycerin 0.4 MG 1 tab(s) sublingual ly every 5 minutes Active Furosemide 20 MG 1 tab(s) orally once a day Active Irbesartan 300 MG 1 tab(s) orally once a day Active Atorvastatin Calcium 80 MG 1 tab(s) orally once a day Active Vital Signs Height 64.6 in 05/29/2024 Weight 173.0 lbs 05/29/2024 BMI 29.14 kg/m2 05/29/2024 Encounters Encounter Location Date Provider Diagnosis [facility] [place] ([address]) [address] [place] [id number] 05/29/2024 Ishaan Gambino Morbid (severe) obesity due to excess calories E66.01 ; Chronic fatigue, unspecified R53.82 ; Other fatigue R53.83 and Other malaise R53.81 Assessments Encounter Date Diagnosis (ICD Code) Assessment Notes Treatment Notes Treatment Clinical Notes Section Notes 05/29/2024 Morbid (severe) obesity due to excess calories (ICD-10 - E66.01) 05/29/2024 Chronic fatigue, unspecified (ICD-10 - R53.82) 05/29/2024 Other fatigue (ICD-10 - R53.83) 05/29/2024 Other malaise (ICD-10 - R53.81) Plan Of Treatment Next Appt Details Follow Up: 1 Week, Reason: G LP-1 Agonist Administration Provider Name:Ishaan Gambino , 06/05/2024 09:00:00 AM, [address] [address], [place], [address], Provider Name:Ishaan Gambino , 06/12/2024 09:00:00 AM, [address] [address], [place], [address], Procedure Notes * Category Sub-Category Detail Notes [facility] Management tirzepatide Indication: weig ht loss Concentration: 10 mg/mL Volume Administered: 0.5 mL Dose Administered: 5 mg Route: SQ Location: [facility] Frequency: weekly Lot Number/Expiration: Medication Source: [facility] Adverse Reaction: None Progress Notes * TRANTyreseanceDOB:[birth year] (69 yo F)Acc No.[id number]:05/29/2024 Weight Loss Patient: Denice HUFFMAN Provider: Magi Gambino MD :1955 A ge:69 Y S ex:Female Date:05/29/2024 [facility] Pcp:Taz Polk Subjective: * Chief Complaints: * 1 . [facility], on tirzepatide, appetite suppression is lasting 4-5 days, no side effects, no new concerns. 2. Desired weight loss: 45 lbs, +1.2 lbs since last visit, -32.4 lbs total. 3. No history MTC or [...] * Vitals: H t: 64.6 in, Wt: 173.0 lbs, BMI:29.14Index. Assessment: * Assessment: 1. M orbid (severe) [...] L ot Number/Expiration 0 M edication Source [facility] A dverse Reaction N one * Follow Up: 1 Week (Reason: GLP-1 Agonist Administration) * Billing Information: * Visit Code: * Procedure Codes: 03535 [facility] - Weekly (tirzepatide) (0.5-5 mg) Tier 1. * Electronic signature of Sudarshan Gambino MD, FAAAAI on 05/31/2024 at 07:45 AM CDT Sign off status: Pending * Provider: Magi Gambino MD Date: 0 05/29/2024 Generated for Printi ng/Amaya/eTransmveronica on: 0 05/31/2024 07:45 AM CDT
--- OUTSIDE RECORDS SUMMARY | 2024-05-31 07:46 | XMS_ITS ---
Author Organization [facility] Address [address] [place] [address] Care Team Providers Care Chronometer Assembler And Adjuster Name Role Phone Taz Polk Primary Care Provider Unavailab Ishaan Alston [phone] REASON FOR VISIT [facility], on tirzepatide, appetite suppression is lasting 4-5 days, no side effects, no new concerns, Desired weight loss: 45 lbs, - 0.2 lbs since last visit, -34.8 lbs total, No history MTC or MEN2 or pancreatitis, Concerned about future DM and OA Medications Medication SIG (Take, Route, Frequency, Duration) Notes Start Date End Date Status Irbesartan 300 MG 1 tab(s) orally once a day Active Atorvastatin Calcium 80 MG 1 tab(s) orally once a day Active Furosemide 20 MG 1 tab(s) orally once a day Active Isosorbide Mononitrate ER 30 MG 1 tab(s) orally once a day (in the morning) Active Nitroglycerin 0.4 MG 1 tab(s) sublingual ly every 5 minutes Active amLODIPine Besylate 5 MG 1 tab(s) orally once a day Active Aspirin 81 MG 1 tab(s) orally once a day Not-Taking Vital Signs Height 64.6 in 05/15/2024 Weight 170.8 lbs 05/15/2024 BMI 28.77 kg/m2 05/15/2024 Encounters Encounter Location Date Provider Diagnosis [facility] [place] ([address]) [address] [place] [id number] 05/15/2024 Ishaan Gambino Morbid (severe) obesity due to excess calories E66.01 ; Chronic fatigue, unspecified R53.82 ; Other fatigue R53.83 and Other malaise R53.81 Assessments Encounter Date Diagnosis (ICD Code) Assessment Notes Treatment Notes Treatment Clinical Notes Section Notes 05/15/2024 Morbid (severe) obesity due to excess calories (ICD-10 - E66.01) 05/15/2024 Chronic fatigue, unspecified (ICD-10 - R53.82) 05/15/2024 Other fatigue (ICD-10 - R53.83) 05/15/2024 Other malaise (ICD-10 - R53.81) Plan Of Treatment Next Appt Details Follow Up: 1 Week, Reason: G LP-1 Agonist Administration Provider Name:Ishaan Gambino , 06/05/2024 09:00:00 AM, [address], [facility] [address], [address], Provider Name:Ishaan Gambino , 06/12/2024 09:00:00 AM, [address], [address] [address], [place], [address], Procedure Notes * Category Sub-Category Detail Notes [facility] tirzepatide Indication: weig ht loss Concentration: 10 mg/mL Volume Administered: 0.5 mL Dose Administered: 5 mg Route: SQ Location: [facility] Frequency: weekly Lot Number/Expiration: Medication Source: Nutraceutical Comp ounding Adverse Reaction: None Progress Notes * TRANTyreseanceDOB:[birth year] (69 yo F)Acc No.[id number]:05/15/2024 Weight Loss Patient: Denice HUFFMAN Provider: Magi Gambino MD :1955 A ge:69 Y S ex:Female Date:05/15/2024 Address: [address], [facility] Pcp:Taz Polk Subjective: * Chief Complaints: * 1 . [facility], on tirzepatide, appetite suppression is lasting 4-5 days, no side effects, no new concerns. 2. Desired weight loss: 45 lbs, - 0.2 lbs since last visit, -34.8 lbs total. 3. No history MTC or [...] * Vitals: H t: 64.6 in, Wt: 170.8 lbs, BMI:28.77Index. Assessment: * Assessment: 1. M orbid (severe) [...] Information: * Visit Code: * Procedure Codes: 44638 [facility] - Weekly (tirzepatide) (0.5-5 mg) Tier 1. * Electronic signature of Sudarshan Gambino MD, FAAAAI on 05/31/2024 at 07:46 AM CDT Sign off status: Pending * Provider: Magi Gambino MD Date: 0 05/15/2024 Generated for Printi ng/Amaya/eTransmitting on: 05/31/2024 07:46 AM CDT
--- OUTSIDE RECORDS SUMMARY | 2024-05-31 07:46 | XMS_ITS | Referral Summary ---
Author Organization [facility] Address [address] [place] [address] Care Team Providers Care Deaf Interpreter Name Role Phone Taz Polk DO Primary Care Provider +1- [phone] Encounters Date Type Department Care Team Description 05/29/2024 12:20 PM CDT Lab [facility] [address] [place] [address] Coronary artery disease 05/29/2024 11:00 AM CDT Office Visit [facility] [address] [place] [address] Medical Office Building [address] [place] [address] Parveen Garcia MD Coronary artery disease (Primary Dx) from Last 3 Months Allergies No known active allergies Medications nitroglycerin [...] 03/23/2020 Assessment & Plan (03/23/2020 8:52 PM CORPORATE DIRECTOR): Labs. Continue low-carb (<150 g/day), low-glycemic diet. [...] phone. Assessment & Plan (03/18/2022 10:12 PM CORPORATE DIRECTOR): Reviewed calorie restriction based on BMR as previously detailed. Reviewed recommendation/goal of >/= 150 minutes/week moderate-intensity aerobic exercise. Asked to try to track consistently with [employer] yahaira for at least 1 week to [...] phone. Assessment & Plan (03/23/2020 8:52 PM CORPORATE DIRECTOR): Reviewed calorie restriction based on BMR as previously detailed. Reviewed recommendation/goal of >/= 150 minutes/week moderate-intensity aerobic exercise. Asked to keep detailed food diary for at least 1 week and bring to next visit and/or continue tracking on phone. Assessment & Plan (02/12/2020 8:32 AM CORPORATE DIRECTOR): Discussed that significant health benefits/risk reduction may [...] diet. Assessment & Plan (03/18/2022 10:13 PM CORPORATE DIRECTOR): Continue low-carb (<150 g/day), low-glycemic diet. Discussed [...] diet. Assessment & Plan (02/12/2020 9:07 AM CORPORATE DIRECTOR): Reviewed recent labs. Discussed increased risk for DM in setting of obesity and FHx DM. Labs. Discussed insulin resistance including effect on weight and risk for progression to diabetes. Recommended low-carb, low-glycemic diet; choose whole grains and avoid more highly processed carbohydrates. Discussed potential benefits of this w/r/t gut microbiome. Referred to ADA and [facility] websites for additional information on topics including glycemic index/carbohydrate choices, protein sources. JASSI-inhibitor cough 04/20/2019 Assessment & Plan (04/20/2019 11:38 AM CORPORATE DIRECTOR): I will stop her lisinopril and start irbesartan 300 mg. Palpitations 04/20/2019 Assessment & Plan (04/20/2019 11:38 AM CORPORATE DIRECTOR): She reports brief sporadic palpitations. At this [...] Other: Assessment & Plan (03/18/2022 10:11 PM CORPORATE DIRECTOR): Obesity is unchanged. Diet interventions: as noted. [...] unchanged. Behavioral treatment: recommended counseling and suggested [place] BMI. Diet interventions: as noted. Regular aerobic exercise program discussed. Pharmacotherapy as ordered. Discussed options and will start topiramate. Discussed risks, benefits, alternatives, potential side effects. Patient made aware that use of this medication for weight loss is off label. Assessment & Plan (03/23/2020 8:53 PM CORPORATE DIRECTOR): Obesity is unchanged. Diet interventions: as noted. Regular aerobic exercise program discussed. Assessment & Plan (03/30/2019 9:05 AM CORPORATE DIRECTOR): Recommend lifestyle modifications including physical activity and dietary modification Chronic fatigue 03/30/2019 Assessment & Plan (02/12/2020 9:04 AM CORPORATE DIRECTOR): Labs. Discussed importance of adequate sleep; good sleep hygiene in controlling weight as well as for overall health. Assessment & Plan (04/20/2019 11:42 AM CORPORATE DIRECTOR): She does have signs and symptoms compatible with sleep apnea. She will make an appointment for sleep study. Assessment & Plan (03/30/2019 9:21 AM CORPORATE DIRECTOR): She has some signs and symptoms compatible [...] LAD Assessment & Plan (12/22/2023 9:35 AM CORPORATE DIRECTOR): Coronary artery disease s/p PCI to mid LAD in 2019. Had a C in 09/2022 with patent stents and mild-moderate [...] mg. Assessment & Plan (04/17/2021 8:34 AM CORPORATE DIRECTOR): She is 2 years post PCI. Will [...] Imdur. Assessment & Plan (04/18/2020 10:26 AM CORPORATE DIRECTOR): The patient has had a PCI to [...] requirement. Assessment & Plan (04/20/2019 11:36 AM CORPORATE DIRECTOR): She has had a couple of episodes [...] rehab. Assessment & Plan (03/30/2019 9:04 AM CORPORATE DIRECTOR): She has symptoms consistent with stable angina [...] will try to obtain the films from [facility] and review it. Depending on the findings, we might recommend repeat cardiac catheterization and/or revascularization. Before the review, we will continue her current regimen. - continue aspirin 81 mg daily, amlodipine 5 mg daily, atorvastatin 40 mg daily, lisinopril 20 mg daily, nitroglycerin p.r.n.. - will try to obtain and review films from [facility]. - depending on how the film looks, we may recommend repeat cardiac catheterization/revascularization next week Hypercholesteremia 03/13/2019 Assessment & Plan (05/07/2022 9:20 AM CDT): Lipid panel showing that LDL is at goal. Will make no changes to her current medical therapy the patient will continue take Lipitor 80 mg q.h.s. Will repeat lipid panel Assessment & Plan (04/18/2020 9:50 AM CORPORATE DIRECTOR): Her lipids are fairly well controlled few months ago. Will continue to Assessment & Plan (04/20/2019 11:38 AM CORPORATE DIRECTOR): She is on high-intensity statin. She has good control in this. I will make no changes to this. Assessment & Plan (03/30/2019 9:05 AM CORPORATE DIRECTOR): Most recent LDL cholesterol 51 in 01/2019. This is under control. Will continue current management. - continue atorvastatin 40 mg daily Visit for wound check 2019 Abnormal stress test 11/29/2018 Chest tightness 11/29/2018 Essential hypertension 11/29/2018 Assessment & Plan (12/22/2023 9:36 AM CORPORATE DIRECTOR): Well controlled. Continue amlodipine 10 mg daily and irbesartan 300 mg daily. BMP and CBC today. Assessment & Plan (05/07/2022 9:19 AM CDT): Her blood pressure is also at goal will continue with current regimen of amlodipine with irbesartan. Assessment & Plan (04/17/2021 8:34 AM CORPORATE DIRECTOR): Blood pressure well controlled. Will recheck BMP as she is on a diuretic. Assessment & Plan (10/31/2020 10:52 AM CDT): Her blood pressure is well controlled. We will make no changes to her regimen today. Continue amlodipine, irbesartan, furosemide. We will check a CMP. Assessment & Plan (04/18/2020 9:45 AM CORPORATE DIRECTOR): Her blood pressure is currently well controlled right now. We will continue amlodipine, irbesartan, and Imdur. Her labs from February of this year are stable with her creatinine and electrolytes within normal range. Assessment & Plan (02/12/2020 9:05 AM CORPORATE DIRECTOR): Reviewed role of diet, exercise, weight loss in controlling blood pressure. Recommended low sodium/DASH diet. Continue current medications. Appropriately on JASSI-I/ARB. Assessment & Plan (11/09/2019 10:18 AM CDT): Her BP is well controlled on her current regimen of amlodipine and irbesartan. Assessment & Plan (04/20/2019 11:37 AM CORPORATE DIRECTOR): She reports that her blood pressure has been elevated on a few occasions. I will stop her lisinopril as she has an JASSI-inhibitor cough. I will start irbesartan 300 mg a day. After to monitor blood pressure at home. I will increase her amlodipine to 10 mg if her blood pressure remains suboptimally controlled. Assessment & Plan (03/30/2019 9:05 AM CORPORATE DIRECTOR): Blood pressure is under reasonable control this visit. Will continue current management. Her heart rate is rather low to tolerate beta akash. - continue amlodipine 5 mg daily, lisinopril 20 mg daily - recommend keeping a blood pressure log. Family history of premature coronary artery dise ase 11/29/2018 Assessment & Plan (03/30/2019 9:05 AM CORPORATE DIRECTOR): See assessment and plan above for coronary artery disease Hyperlipidemia Assessment & Plan (12/22/2023 9:37 AM CORPORATE DIRECTOR): LDL at goal on labs from 04/2023. Continue Atorvastatin 80 mg daily. Assessment & Plan (04/17/2021 8:34 AM CORPORATE DIRECTOR): Her cholesterol is well controlled on her lipid panel 6 months ago. Will repeat this next year. Assessment & Plan (10/31/2020 10:52 AM CDT): Her LDL was suppressed 1 year ago on atorvastatin 80 mg daily. We will recheck a lipid panel and CMP today for adherence and therapeutic effect. Assessment & Plan (02/12/2020 9:09 AM CORPORATE DIRECTOR): Reviewed recent lipid panel -- LDL in [...] ordered. Assessment & Plan (04/18/2020 9:47 AM CORPORATE DIRECTOR): The patient is following with Dr. Snyder about behavioral, dietary and exercise based interventions for her obesity. We discussed that she does not have any limitations from a cardiovascular perspective and should exercise/continue activities that she enjoys. Assessment & Plan (02/12/2020 9:05 AM CORPORATE DIRECTOR): Obesity is worsening. General weight loss/lifestyle modification [...] weight. We will refer her to the [facility] nonsurgical weight management program. Immunizations Immunization Administration [...] 05/29/2024 11:16 AM CDT Plan of Treatment Not on file Medical Devices Implanted Type Area Shipping And Receiving Operator Device Identifier Shelf Expiration Date Model / Serial / Lot [employer] [place] Angio-Seal Vip 6fr Closere Device [id number] - [id number] - [id number] Implanted:Qty : 1 on 06/07/2022 by Lonnie Ahmadi MD at [facility] Collagen Right: Femoral [employer] [place] 12/14/2022 [id number] / [id number] / [id number] [employer] X [id number] Resolute Dwaine 2.5mm 2.1-2.7fr 22mm 140cm Rapid Exchange - [id number] Implanted:Qty : 1 on 04/12/2019 by Lonnie Ahmadi MD at [facility] Stent N/A: Coronary Medtronic Inc 08/11/2019 [id number] / / [id number] Medtronic Card Vasc Surgery 2.00 X 18mm [place] Beyer Rx Coronary Stent [id number] - [id number] - [id number] Implanted:Qty : 1 on 06/07/2022 by Lonnie Ahmadi MD at [facility] Stent Left: Diagnonal Coronary Artery Medtronic Card Vasc Surgery 03/05/2023 [id number] / [id number] / [id number] [employer]ig [place] [id number] Angio-Seal Evolution 8fr .038in Guidewire Bypass Tube Suture - [id number] - [id number] Implanted:Qty : 1 on 04/12/2019 by Lonnie Ahmadi MD at [facility] N/A: Arterial [employer] [place] 12/15/2019 [id number] / [id number] / [id number] Procedures Procedure Name Priority Date/Time Associated Diagnosis [...] mg/dL High: >160 mg/dL Calculated using the Carvajal LDL-C estimating equation. This equation was implemented on 2023. Prior to this date LDL-C was estimated using the Friedewald equation. Literature References: 1. Expert Panel on Integrated Guidelines for Cardiovascular Health and Risk Reduction in Children and Adolescents. Pediatrics 2011;128:S213 2. NCEP Expert Panel. Circulation 2004;110:227 3. Wei Peterson et al. ARLYN Cardiol. 2019June 14;5(5):540-548. doi: 10.1001/jamacardio.2020.0013 Current Interpretive Data was [...] MD LAB BLOOD ORDERABLES Final Result CRISTIAN SEQUEIRACH [address] [facility] Department [place] [address] from Last 3 Months Insurance [facility]IC[facility] ADVANTAGE MEDIC[facility] MEDICARE [facility] [place] CHOICE [facility] [place]PO [place] [facility] MEDICARE ADVANTAGE Advance Directives For more information, please contact: [phone] * Full Code (Latest Code Status on File) Date Activated Date Inactivated Comments 06/07/2022 2:33 PM 06/07/2022 10:06 PM * Full Code Date Activated Date Inactivated Comments 04/12/2019 11:11 AM 04/12/2019 6:52 PM Care Teams Deaf Interpreter Relationship Specialty Start Date End Date Taz Polk, PCP - General Internal Medicine 11/18/17
--- OUTSIDE RECORDS SUMMARY | 2024-05-31 07:46 | XMS_ITS | Encounter Summary ---
Author Organization [facility] Address [address] [facility] [place] [address] Care Team Providers Care Patient Service Representative Name Role Phone Taz Polk DO Primary Care Provider [phone]- [phone] Encounter Details Date Type Department Care Team (Late st Contact Info) Description 09/07/2022 Lab Requisition [facility] - DermPath Lab [address] [place] [phone] Melania Whitehead MD [address] [facility] [address] [place] [address] Social History Tobacco Use Types Packs/Day Years [...] AM CDT) Case Report Dermatopathology Report Case: [id number] Authorizing Provider: Melania Whitehead MD Collected: 09/07/2022 10:27 AM Ordering Location: [facility] Received: 09/07/2022 04:17 PM Pathologist: [...] characteristic determined by the Dermatopathology Laboratory at [facility], directed by Dr. Brennen Hwang. These tests need not be, and therefore are not, approved by the [place] Food and Drug Administration. The tests are used for clinical purposes. Billing Codes Specimen Charges Stain Charges 72063 1 3 4:42 PM CDT DERMATOPATHOLOGY LABORATORY Embedded Images 3 4:42 PM CDT DERMATOPATHOLOGY LABORATORY Pathology/Cytolo gy TISSUE SPECIMEN FROM SKIN / Unknown 09/07/2022 10:27 AM CDT 09/07/2022 4:17 PM CDT us Melania Whitehead MD LAB - PATHOLOGY/CYTOLOGY ORD ERABLES Final Result DERMATOPATHOLOGY LABORATORY [facility] - Department of Dermatology [address], [address] [phone] documented in this encounter Visit Diagnoses Not on filedocumented in this encounter Care Teams Patient Service Representative Relationship Specialty Start Date End Date Taz Polk DO PCP - General 01/18/18 documented as of this encounter
--- OUTSIDE RECORDS SUMMARY | 2024-05-31 07:47 | XMS_ITS | Encounter Summary ---
Author Organization [facility] Address [address] [place] [address] Phone Care Team Providers Care Elementary Education Teacher Name Role Phone Taz Polk DO Primary Care Provider +1- [phone] Encounter Details Date Type Department Care Team [...] documented as of this encounter Care Teams Elementary Education Teacher Relationship Specialty Start Date End Date Taz Polk DO PCP - General Internal Medicine 11/18/17 documented as of this encounter
--- OUTSIDE RECORDS SUMMARY | 2024-05-31 07:47 | XMS_ITS | Patient Health Record ---
Author Organization [facility] Address [address] [place] [address] Care Team Providers Care Sport Intern Name Role Phone Taz Polk Primary Care Provider Unavailab Ishaan Alston Unavailable [phone] July Marshall Unavailable [phone] ZZ-Migration, Provider Unavailable Unavailab le Allergies No [...] Status Risk Notes Problem Morbid obesity (disorder) (569742076) Morbid (severe) obesity due to excess calories (E66.01) Active confirmed Problem Sleep apnea (00073369) Sleep apnea, unspecified (G47.30) Active confirmed Problem Obstructive sleep apnea syndrome (disorder) (82494035) Obstructive sleep apnea (adult) (pediatric) (G47.33) Active confirmed Problem Chronic fatigue syndrome (disorder) (71873443) Chronic fatigue, unspecified (R53.82) Active confirmed Problem Obesity (779272909) Obesity, unspecified (E66.9) Active confirmed Problem Sleep disorder (94369725) Other sleep disorders (G47.8) Active confirmed Problem Hypersomnia (00626887) Hypersomnia, unspecified (G47.10) Active confirmed Vital Signs Oximetry 99 % 03/06/2024 Blood pressure diastolic 75 mm Hg 03/06/2024 Height 64.6 in 05/29/2024 Blood pressure systolic 113 mm Hg 03/06/2024 Weight 173.0 lbs 05/29/2024 BMI 29.14 kg/m2 05/29/2024 Procedures Procedure Date Ordered Date Performed Result Body Sit e Sleep Study WatchPAT 300 (Zoll-Heriberto) 09/26/2023 N/A Encounters Encounter Location Date Provider Diagnosis [facility] ([address]) [address] [place] [address] 06/27/2023 Ishaan Gambino Morbid (severe) obesity due to excess calories E66.01 ; Chronic fatigue, unspecified R53.82 ; Other fatigue R53.83 and Other malaise R53.81 [facility] ([address]) [address] [place] [phone] 07/04/2023 Ishaan Gambino Morbid (severe) obesity due to excess calories E66.01 ; Chronic fatigue, unspecified R53.82 ; Other fatigue R53.83 and Other malaise R53.81 [facility] ([address]) [address] [place] [address] 07/12/2023 Ishaan Gambino Morbid (severe) obesity due to excess calories E66.01 ; Chronic fatigue, unspecified R53.82 ; Other fatigue R53.83 and Other malaise R53.81 [facility] ([address]) [address] [place] [address] 07/25/2023 Ishaan Gambino Morbid (severe) obesity due to excess calories E66.01 ; Chronic fatigue, unspecified R53.82 ; Other fatigue R53.83 and Other malaise R53.81 [place] [phone] 07/30/2023 Provider ROMULO-Louisa [facility] ([address]) [address] [place] [address] 08/01/2023 Ishaan Win Morbid (severe) obesity due to excess calories E66.01 ; Chronic fatigue, unspecified R53.82 ; Other fatigue R53.83 and Other malaise R53.81 [facility] ([address]) [address] [place] [address] 08/22/2023 Ishaan Win Morbid (severe) obesity due to excess calories E66.01 ; Chronic fatigue, unspecified R53.82 ; Other fatigue R53.83 and Other malaise R53.81 [facility] ([address]) [address] [place] [address] 09/05/2023 Ishaan Win Morbid (severe) obesity due to excess calories E66.01 ; Chronic fatigue, unspecified R53.82 ; Other fatigue R53.83 and Other malaise R53.81 [facility] ([address]) [address] [place] [address] 09/19/2023 Ishaan Win Morbid (severe) obesity due to excess calories E66.01 ; Chronic fatigue, unspecified R53.82 ; Other fatigue R53.83 and Other malaise R53.81 [facility] ([address]) [address] [place] [address] 09/26/2023 Ishaan Win [facility] ([address]) [address] [place] [address] 10/03/2023 Ishaan Win Morbid (severe) obesity due to excess calories E66.01 ; Chronic fatigue, unspecified R53.82 ; Other fatigue R53.83 and Other malaise R53.81 [facility] ([address]) [address] [place] [address] 10/18/2023 Ishaan Win Morbid (severe) obesity due to excess calories E66.01 ; Chronic fatigue, unspecified R53.82 ; Other fatigue R53.83 and Other malaise R53.81 [facility] ([address]) [address] [place] [address] 10/26/2023 Ishaan Gambino [facility] ([address]) [address] [place] [address] 10/26/2023 Ishaan Immanuel Morbid (severe) obesity due to excess calories E66.01 ; Chronic fatigue, unspecified R53.82 ; Other fatigue R53.83 and Other malaise R53.81 [facility] [address] [facility] [address] [place] [address] 10/26/2023 [facility] [address] [place] [address] 11/01/2023 Ishaan Immanuel Morbid (severe) obesity due to excess calories E66.01 ; Chronic fatigue, unspecified R53.82 ; Other fatigue R53.83 and Other malaise R53.81 [facility] ([address] [address] [place] [address] 11/08/2023 Ishaan Immanuel Morbid (severe) obesity due to excess calories E66.01 ; Chronic fatigue, unspecified R53.82 ; Other fatigue R53.83 and Other malaise R53.81 [facility] ([address]) [address] [place] [address] 11/15/2023 Ishaan Immanuel Morbid (severe) obesity due to excess calories E66.01 ; Chronic fatigue, unspecified R53.82 ; Other fatigue R53.83 and Other malaise R53.81 [facility] ([address]) [address] [place] [address] 11/22/2023 Ishaanraj Gambino Morbid (severe) obesity due to excess calories E66.01 ; Chronic fatigue, unspecified R53.82 ; Other fatigue R53.83 and Other malaise R53.81 [facility] ([address]) [address] [place] [address] 11/29/2023 Ishaan Win Morbid (severe) obesity due to excess calories E66.01 ; Chronic fatigue, unspecified R53.82 ; Other fatigue R53.83 and Other malaise R53.81 [facility] ([address]) [address] [place] [address] 12/06/2023 Ishaan Win Morbid (severe) obesity due to excess calories E66.01 ; Chronic fatigue, unspecified R53.82 ; Other fatigue R53.83 and Other malaise R53.81 [facility] ([address]) [address] [place] [address] 12/13/2023 Ishaan Win Morbid (severe) obesity due to excess calories E66.01 ; Chronic fatigue, unspecified R53.82 ; Other fatigue R53.83 and Other malaise R53.81 [facility] ([address]) [address] [place] [address] 12/20/2023 Ishaan Win Morbid (severe) obesity due to excess calories E66.01 ; Chronic fatigue, unspecified R53.82 ; Other fatigue R53.83 and Other malaise R53.81 [facility] ([address]) [address] [place] [address] 12/27/2023 Ishaan Win Morbid (severe) obesity due to excess calories E66.01 ; Chronic fatigue, unspecified R53.82 ; Other fatigue R53.83 and Other malaise R53.81 [facility] ([address]) [address] [place] [address] 01/03/2024 Ishaan Win Morbid (severe) obesity due to excess calories E66.01 ; Chronic fatigue, unspecified R53.82 ; Other fatigue R53.83 and Other malaise R53.81 [facility] ([address]) [address] [place] [address] 01/10/2024 Ishaan Win Morbid (severe) obesity due to excess calories E66.01 ; Chronic fatigue, unspecified R53.82 ; Other fatigue R53.83 and Other malaise R53.81 [facility] ([address]) [address] [place] [address] 01/17/2024 Ishaan Win Morbid (severe) obesity due to excess calories E66.01 ; Chronic fatigue, unspecified R53.82 ; Other fatigue R53.83 and Other malaise R53.81 [facility] ([address]) [address] [place] [address] 01/24/2024 Ishaan Win Morbid (severe) obesity due to excess calories E66.01 ; Chronic fatigue, unspecified R53.82 ; Other fatigue R53.83 and Other malaise R53.81 [facility] ([address]) [address] [place] [address] 01/24/2024 Ishaan Win [facility] ([address]) [address] [place] [address] 01/31/2024 Ishaan Win Morbid (severe) obesity due to excess calories E66.01 ; Chronic fatigue, unspecified R53.82 ; Other fatigue R53.83 and Other malaise R53.81 [facility] ([address]) [address] [place] [address] 02/06/2024 Ishaan Win Morbid (severe) obesity due to excess calories E66.01 ; Chronic fatigue, unspecified R53.82 ; Other fatigue R53.83 and Other malaise R53.81 [facility] ([address]) [address] [place] [address] 02/16/2024 Ishaan Win Morbid (severe) obesity due to excess calories E66.01 ; Chronic fatigue, unspecified R53.82 ; Other fatigue R53.83 and Other malaise R53.81 [facility] ([address]) [address] [place] [address] 02/22/2024 Ishaan Gambino Morbid (severe) obesity due to excess calories E66.01 ; Chronic fatigue, unspecified R53.82 ; Other fatigue R53.83 and Other malaise R53.81 [facility] ([address]) [address] [place] [address] 02/22/2024 Ishaan Gambino Morbid (severe) obesity due to excess calories E66.01 ; Chronic fatigue, unspecified R53.82 ; Other fatigue R53.83 and Other malaise R53.81 [facility] ([address]) [address] [place] [address] 02/28/2024 Ishaan Gambino Morbid (severe) obesity due to excess calories E66.01 ; Chronic fatigue, unspecified R53.82 ; Other fatigue R53.83 and Other malaise R53.81 [facility] ([address]) [address] [place] [address] 03/06/2024 Ishaan Gambino Morbid (severe) obesity due to excess calories E66.01 ; Chronic fatigue, unspecified R53.82 ; Other fatigue R53.83 and Other malaise R53.81 [facility] [address] [facility] [address] [place] [address] 03/06/2024 July Marshall Sleep apnea, unspecified G47.30 ; Obstructive sleep apnea (adult) (pediatric) G47.33 ; Chronic fatigue, unspecified R53.82 ; Other fatigue R53.83 and Snoring R06.83 [facility] ([address]) [address] [place] [address] 03/13/2024 Ishaan Gambino Morbid (severe) obesity due to excess calories E66.01 ; Chronic fatigue, unspecified R53.82 ; Other fatigue R53.83 and Other malaise R53.81 [facility] ([address]) [address] [place] [address] 03/20/2024 Ishaan Win Morbid (severe) obesity due to excess calories E66.01 ; Chronic fatigue, unspecified R53.82 ; Other fatigue R53.83 and Other malaise R53.81 [facility] ([address]) [address] [place] [address] 03/27/2024 Ishaan Win Morbid (severe) obesity due to excess calories E66.01 ; Chronic fatigue, unspecified R53.82 ; Other fatigue R53.83 and Other malaise R53.81 [facility] ([address]) [address] [place] [address] 04/03/2024 Ishaan Win Morbid (severe) obesity due to excess calories E66.01 ; Chronic fatigue, unspecified R53.82 ; Other fatigue R53.83 and Other malaise R53.81 [facility] ([address]) [address] [place] [address] 04/10/2024 Ishaan Win Morbid (severe) obesity due to excess calories E66.01 ; Chronic fatigue, unspecified R53.82 ; Other fatigue R53.83 and Other malaise R53.81 [facility] ([address]) [address] [place] [address] 04/17/2024 Ishaan Win Morbid (severe) obesity due to excess calories E66.01 ; Chronic fatigue, unspecified R53.82 ; Other fatigue R53.83 and Other malaise R53.81 [facility] ([address]) [address] [place] [address] 04/17/2024 Ishaan Win [facility] ([address]) [address] [place] [address] 04/24/2024 Ishaan Win Morbid (severe) obesity due to excess calories E66.01 ; Chronic fatigue, unspecified R53.82 ; Other fatigue R53.83 and Other malaise R53.81 [facility] ([address]) [address] [facility] [place] [address] 05/01/2024 Ishaan Win Morbid (severe) obesity due to excess calories E66.01 ; Chronic fatigue, unspecified R53.82 ; Other fatigue R53.83 and Other malaise R53.81 [facility] ([address]) [address] [place] [address] 05/08/2024 Ishaan Win Morbid (severe) obesity due to excess calories E66.01 ; Chronic fatigue, unspecified R53.82 ; Other fatigue R53.83 and Other malaise R53.81 [facility] ([address]) [address] [place] [address] 05/15/2024 Ishaan Win Morbid (severe) obesity due to excess calories E66.01 ; Chronic fatigue, unspecified R53.82 ; Other fatigue R53.83 and Other malaise R53.81 [facility] ([address]) [address] [place] [address] 05/21/2024 Ishaan Win Morbid (severe) obesity due to excess calories E66.01 ; Chronic fatigue, unspecified R53.82 ; Other fatigue R53.83 and Other malaise R53.81 [facility] ([address]) [address] [place] [address] 05/29/2024 Ishaan Win Morbid (severe) obesity due to excess calories E66.01 ; Chronic fatigue, unspecified R53.82 ; Other fatigue R53.83 and Other malaise R53.81 [facility] ([address]) [address] [place] [address] 06/06/2023 Ishaan Win Morbid (severe) obesity due to excess calories E66.01 ; Chronic fatigue, unspecified R53.82 ; Other fatigue R53.83 and Other malaise R53.81 [facility] ([address]) [address] [place] [address] 06/13/2023 Ishaan Win Morbid (severe) obesity due to excess calories E66.01 ; Chronic fatigue, unspecified R53.82 ; Other fatigue R53.83 and Other malaise R53.81 [facility] ([address]) [address] [place] [address] 06/20/2023 Ishaan Gambino Morbid (severe) obesity due to excess calories E66.01 ; Chronic fatigue, unspecified R53.82 ; Other fatigue R53.83 and Other malaise R53.81 [facility] ([address]) [address] [place] [address] 07/18/2023 Ishaan Immanuel Morbid (severe) obesity due to excess calories E66.01 ; Chronic fatigue, unspecified R53.82 ; Other fatigue R53.83 and Other malaise R53.81 [facility] ([address]) [address] [place] [address] 08/10/2023 Ishaanraj Gambino Morbid (severe) obesity due to excess calories E66.01 ; Chronic fatigue, unspecified R53.82 ; Other fatigue R53.83 and Other malaise R53.81 [facility] ([address]) [address] [place] [address] 08/29/2023 Ishaanraj Gambino Morbid (severe) obesity due to excess calories E66.01 ; Chronic fatigue, unspecified R53.82 ; Other fatigue R53.83 and Other malaise R53.81 [facility] ([address]) [address] [place] [address] 09/12/2023 Ishaanraj Gambino Morbid (severe) obesity due to excess calories E66.01 ; Chronic fatigue, unspecified R53.82 ; Other fatigue R53.83 and Other malaise R53.81 [facility] [address] [facility] [address] [place] [address] 09/12/2023 Ishaan Win [facility] ([address]) [address] [place] [address] 09/26/2023 Ishaan Win Morbid (severe) obesity due to excess calories E66.01 ; Chronic fatigue, unspecified R53.82 ; Other fatigue R53.83 and Other malaise R53.81 [facility] [address] [facility] [address] [place] [address] 09/26/2023 Ishana Gambino Obstructive sleep apnea (adult) (pediatric) G47.33 ; Sleep apnea, unspecified G47.30 ; Snoring R06.83 ; Hypersomnia, unspecified G47.10 ; Other sleep disorders G47.8 and Obesity, unspecified E66.9 [facility] ([address]) [address] [place] [address] 10/10/2023 Ishaan Gambino Morbid (severe) obesity due to excess calories E66.01 ; Chronic fatigue, unspecified R53.82 ; Other fatigue R53.83 and Other malaise R53.81 [facility] ([address]) [address] [place] [address] 06/22/2023 Ishaan Gambino [facility] ([address]) [address] [place] [address] 07/07/2023 [facility]aan [facility] [address] 08/21/2023 [address] Gambino [address] [place] [address] 09/19/2023 Ishaan [facility]MER [facility] [address] 10/18/2023 Ishaan Gambino [facility] ([address]) [address] [place] [address] 02/13/2024 Ishaan Gambino Assessments Encounter Date Diagnosis (ICD Code) Assessment Notes Treatment Notes Treatment Clinical Notes Section Notes 06/06/2023 Morbid (severe) obesity due to excess [...] 03/27/2024 Chronic fatigue, unspecified (ICD-10 - R53.82) 04/03/2024 Morbid (severe) obesity due to excess calories (ICD-10 - E66.01) 04/03/2024 Chronic fatigue, unspecified (ICD-10 - R53.82) 04/10/2024 Morbid (severe) obesity due to excess calories (ICD-10 - E66.01) 04/10/2024 Chronic fatigue, unspecified (ICD-10 - R53.82) 04/17/2024 Morbid (severe) obesity due to excess calories (ICD-10 - E66.01) 04/17/2024 Chronic fatigue, unspecified (ICD-10 - R53.82) 04/24/2024 Morbid (severe) obesity due to excess calories (ICD-10 - E66.01) 04/24/2024 Chronic fatigue, unspecified (ICD-10 - R53.82) 05/01/2024 Morbid (severe) obesity due to excess calories (ICD-10 - E66.01) 05/01/2024 Chronic fatigue, unspecified (ICD-10 - R53.82) 05/08/2024 Morbid (severe) obesity due to excess calories (ICD-10 - E66.01) 05/08/2024 Chronic fatigue, unspecified (ICD-10 - R53.82) 05/15/2024 Morbid (severe) obesity due to excess calories (ICD-10 - E66.01) 05/15/2024 Chronic fatigue, unspecified (ICD-10 - R53.82) 05/21/2024 Morbid (severe) obesity due to excess calories (ICD-10 - E66.01) 05/21/2024 Chronic fatigue, unspecified (ICD-10 - R53.82) 05/29/2024 Morbid (severe) obesity due to excess calories (ICD-10 - E66.01) 05/29/2024 Chronic fatigue, unspecified (ICD-10 - R53.82) 05/29/2024 Other fatigue (ICD-10 - R53.83) 05/21/2024 Other fatigue (ICD-10 - R53.83) 05/15/2024 Other fatigue (ICD-10 - R53.83) 05/08/2024 Other fatigue (ICD-10 - R53.83) 05/01/2024 Other fatigue (ICD-10 - R53.83) 04/24/2024 Other fatigue (ICD-10 - R53.83) 04/17/2024 Other fatigue (ICD-10 - R53.83) 04/10/2024 Other fatigue (ICD-10 - R53.83) 04/03/2024 Other fatigue (ICD-10 - R53.83) 03/27/2024 Other fatigue (ICD-10 - R53.83) 03/20/2024 [...] R53.83) 06/06/2023 Other fatigue (ICD-10 - R53.83) 06/06/2023 Other malaise (ICD-10 - R53.81) 06/13/2023 [...] R53.81) 03/27/2024 Other malaise (ICD-10 - R53.81) 04/03/2024 Other malaise (ICD-10 - R53.81) 04/10/2024 Other malaise (ICD-10 - R53.81) 04/17/2024 Other malaise (ICD-10 - R53.81) 04/24/2024 Other malaise (ICD-10 - R53.81) 05/01/2024 Other malaise (ICD-10 - R53.81) 05/08/2024 Other malaise (ICD-10 - R53.81) 05/15/2024 Other malaise (ICD-10 - R53.81) 05/21/2024 Other malaise (ICD-10 - R53.81) 05/29/2024 Other malaise (ICD-10 - R53.81) 03/06/2024 Snoring (ICD-10 - R06.83) 09/26/2023 Other sleep disorders (ICD-10 - G47.8) 09/26/2023 Obesity, unspecified (ICD-10 - E66.9) Plan Of Treatment Pending Test Test Name Order Date Sleep Study WatchPAT 300 (Zoll-Heriberto) 0 04/05/2023 Sleep Study WatchPAT 300 (Zoll-Heriberto) 0 09/26/2023 Next Appt Details Provider Name:Ishaan Gambino , 06/05/2024 09:00:00 AM, [address], [facility] [address], [place], [address], Provider Name:Ishaan Gambino , 06/12/2024 09:00:00 AM, [address], [facility] [address], [place], [address], Insurance Providers Payer Name Payer Address Payer Phone Subscriber Number Group Number Insured Name Patient Relationship to Insured Coverage Start Date Coverage End Date [employer] [address] [address] [place] [address] [id number] Denice Azevedo Self - patient is the insured
--- OUTSIDE RECORDS SUMMARY | 2024-05-31 07:47 | XMS_ITS | Encounter Summary ---
Author Organization [facility] Address [address] [place] [address] Phone Care Team Providers Care Inbound Sales Representative Name Role Phone Taz Polk DO Primary Care Provider [phone] Encounter Details Date Type Department Care Team [...] documented as of this encounter Care Teams Inbound Sales Representative Relationship Specialty Start Date End Date Taz Polk DO PCP - General Internal Medicine 11/18/17 documented as of this encounter
== END 2024-05-31 07:42 | disposition home or self-care (01) ==
PROVIDERS: PCP Internal Medicine; Visit Provider Nurse Practitioner
DX: Z13.820 Encounter for screening for osteoporosis (principal); Z78.0 Asymptomatic menopausal state
CPT/HCPCS: 77080